=== PATIENT | male | born 1975 | race Caucasian/White ===

== ENCOUNTER 2016-09-23 14:05 | Inpatient (IN) | payer OTHER ==
[2016-09-23 15:39] VITALS: BMI 39.4
--- NOTE | 2016-09-23 16:31 | HP ---
CIWA Score - CIWA Score Nausea/Vomitin Muscle Tremors: 5 Anxiety: 4-Mod. Anxious/Guarded Agitation: 4-Moderately Restless Paroxysmal Sweats: 1-Minimal Palms Moist Orientation: 3-Disoriented Date>2 days Tacttile Disturbances: 0-None Auditory Disturbances: 0-None Visual Disturbances: 0-None Headache: 1-Very Mild CIWA-Ar Total Score: 20 Admission ROS BHS - HPI Chief Complaint: withdrawal sx Allergies/Adverse Reactions: Allergies Allergy/AdvReac Type Severity Reaction Status Date / Time No Known Allergies Allergy Verified 09/23/16 16:15 History of Present Illness: 41 years old male with long history of alcohol dependence, has gerd and bipolar , longest sobriety 2 years is admitted to detox Exam Limitations: No Limitations - Ebola screening Have you traveled outside of the country in the last 21 days: No Have you had contact with anyone from an Ebola affected area: No Have you been sick,other than usual withdrawal symptoms: No Do you have a fever: No - Review of Systems Constitutional: Chills, Changes in sleep, Weight Stable EENT: reports: Dental Problems (upper denture missing) Respiratory: reports: No Symptoms reported Cardiac: reports: No Symptoms Reported GI: reports: Diarrhea, Nausea, Poor Fluid Intake, Vomiting, Indigestion, Abdominal cramping : reports: No Symptoms Reported Musculoskeletal: reports: No Symptoms Reported Integumentary: reports: No Symptoms Reported Neuro: reports: Tremors Endocrine: reports: No Symptoms Reported Hematology: reports: No Symptoms Reported Psychiatric: reports: Judgement Intact, Anxious, Depressed Other Systems: Reviewed and Negative Patient History - Patient Medical History Hx Anemia: No Hx Asthma: No Hx Chronic Obstructive Pulmonary Disease (COPD): No Hx Cancer: No Hx Cardiac Disorders: No Hx Congestive Heart Failure: No Hx Hypertension: No Hx Hypercholesterolemia: No Hx Pacemaker: No HX Cerebrovascular Accident: No Hx Seizures: No Hx Dementia: No Hx Diabetes: No Hx Gastrointestinal Disorders: Yes Hx Liver Disease: No Hx Genitourinary Disorders: No Hx Sexually Transmitted Disorders: No Hx Renal Disease (ESRD): No Hx Thyroid Disease: No Hx Human Immunodeficiency Virus (HIV): No Hx Hepatitis C: No Hx Depression: No Hx Suicide Attempt: Yes (PILL O.D LAST ATTEMPTED 5 YRS AGO.PRESENTLY DENIES SI/ HI) Hx Bipolar Disorder: Yes Hx Schizophrenia: No - Patient Surgical History Past Surgical History: Yes Hx Neurologic Surgery: No Hx Cataract Extraction: No Hx Cardiac Surgery: No Hx Lung Surgery: No Hx Breast Surgery: No Hx Breast Biopsy: No Hx Abdominal Surgery: No Hx Appendectomy: No Hx Cholecystectomy: No Hx Genitourinary Surgery: No Hx Section: No Hx Orthopedic Surgery: Yes (R mandible fx) Other Surgical History: for fx of right mandible in 2000 Anesthesia Reaction: No - PPD History Previous Implant?: Yes Documented Results: Negative w/o proof Implanted On Prior [facility] Admission?: Yes Date: 09/09/15 Results: 0 mm PPD to be Administered?: Yes - Smoking Cessation Smoking history: Never smoked Have you smoked in the past 12 months: No Aproximately how many cigarettes per day: 0 Cigars Per Day: 0 Hx Chewing Tobacco Use: No Initiated information on smoking cessation: No 'Breaking Loose' booklet given: 09/23/16 - Substance & Tx. History Hx Alcohol Use: Yes Hx Substance Use: No Substance Use Type: Alcohol, Marijuana Hx Substance Use Treatment: No - Substances Abused Alcohol Route: Oral Frequency: Daily Amount used: 2 pints vodka/12pk beer Age of first use: 10 Date of Last Use: 09/23/16 Marijuana/Hashish Route: Smoking Frequency: 1-2 times per week Amount used: 1 blunt Age of first use: 14 Date of Last Use: 09/22/16 Family Disease History - Family Disease History Family Disease History: Other: Mother (depression ) Admission Physical Exam BHS - Vital Signs Vital Signs: Vital Signs - 24 hr 09/23/16 15:37 Temperature 95.9 F L Pulse Rate 82 Respiratory 20 Rate Blood Pressure 125/69 - Physical General Appearance: Yes: Nourished, Appropriately Dressed, Moderate Distress, Alcohol on Breath, Tremorous, Irritable, Sweating, Anxious HEENTM: Yes: Hearing grossly Normal, Normal ENT Inspection, Normocephalic, Normal Voice Respiratory: Yes: Chest Non-Tender, Lungs Clear, Normal Breath Sounds, No Respiratory Distress, No Accessory Muscle Use Neck: Yes: Supple, Trachea in good position Breast: Yes: Breasts Symetrical Cardiology: Yes: Tachycardia Abdominal: Yes: Non Tender, Soft Genitourinary: Yes: Within Normal Limits Back: Yes: Normal Inspection Musculoskeletal: Yes: full range of Motion, Gait Steady Extremities: Yes: Normal Range of Motion, Non-Tender, Tremors Neurological: Yes: Alert, Motor Strength 5/5, Normal Response, Depressed Affect Integumentary: Yes: Warm, Moist Lymphatic: Yes: Within Normal Limits - Diagnostic (1) Alcohol dependence with uncomplicated withdrawal Current Visit: Yes Status: Acute (2) GERD (gastroesophageal reflux disease) Current Visit: Yes Status: Acute Qualifiers: Esophagitis presence: without esophagitis Qualified Code(s): K21.9 - Gastro-esophageal reflux disease without esophagitis (3) Bipolar I, most recent episode depressed, severe with psychotic behavior Current Visit: Yes Status: Suspected Cleared for Admission [facility] - Detox or Rehab [facility] Level of Care: Medically Managed Detox Regimen/Protocol: Librium [facility] Breath Alcohol Content Breath Alcohol Content: 0.231 Urine Drug Screen - Results Drug Screen Negative: No Urine Drug Screen Results: THC-Marijuana
[2016-09-23] MEDS ORDERED: LOPERAMIDE HCL 2 MG CAPSULE PO PRN (16:32)
[2016-09-23] MEDS ORDERED: hydrOXYzine PAMOATE 50 MG CAPSULE (FP) PO PRN (16:32)
[2016-09-23] MEDS ORDERED: ACETAMINOPHEN 325 MG TABLET (FP) PO PRN (16:32)
[2016-09-23] MEDS ORDERED: MAGNESIUM HYDROX 2400MG/30ML ORAL SUSPENSION 30 ML CUP PO PRN (16:32)
[2016-09-23] MEDS ORDERED: P-EPHED 60MG/TRIPROLIDI 2.5MG TABLET PO PRN (16:32)
[2016-09-23] MEDS ORDERED: chlordiazePOXIDE HCL 25 MG CAPSULE PO PRN (16:32)
[2016-09-23] MEDS ORDERED: guaiFENesin/D-METHORPHAN HB 10 ML UNIT-DOSE CUPS PO PRN (16:32)
[2016-09-23] MEDS ORDERED: MAG HYDROX/AL HYDROX/SIMETH 30 ML UNIT-DOSE CUP PO PRN (16:32)
[2016-09-23] MEDS ORDERED: MAGNESIUM CITRATE 300 ML BOTTLE PO PRN (16:32)
[2016-09-23] MEDS ORDERED: IBUPROFEN 400 MG TABLET (FP) PO PRN (16:32)
[2016-09-23] MEDS ORDERED: MENTHOL/PHENOL 1 EACH UD MM PRN (16:32)
[2016-09-23] MEDS ORDERED: ONDANSETRON *ODT* 4 MG TABLET SL PRN (16:35)
[2016-09-23] MEDS ORDERED: chlordiazePOXIDE HCL 25 MG CAPSULE PO ONE (17:45)
--- NOTE | 2016-09-23 17:57 | CONSULT ---
[facility] Psychiatric Consult - Data Date of interview: 09/23/16 Admission source: [facility] Identifying data: Readmission to [facility] for this 41 y/o male seeking detox treatment on for alcohol and marijuana dependence.Patient is single,a father of three,domiciled (lives with relatives),unemployed and dependent on his relatives for financial support. Substance Abuse History: - Smoking Cessation. Smoking history: Never smoked. Have you smoked in the past 12 months: No. Aproximately how many cigarettes per day: 0. Cigars Per Day: 0. Hx Chewing Tobacco Use: No. Initiated information on smoking cessation: No. 'Breaking Loose' booklet given: . - Substance & Tx. History. Hx Alcohol Use: Yes. Hx Substance Use: No. Substance Use Type: Alcohol, Marijuana. Hx Substance Use Treatment: No. - Substances Abused. Alcohol. Route: Oral. Frequency: Daily. Amount used: 2 pints vodka/12pk beer. Age of first use: 10. Date of Last Use: 09/23/16. * * Marijuana/Hashish. Route: Smoking. Frequency: 1-2 times per week. Amount used: 1 blunt. Age of first use: 14. Date of Last Use: 09/22/16. Discussed with the patient in this interview.He aknowledges this pattern of substance abuse. Medical History: Remarkable for a history of GERD,withdrawal-related seizures and orthosurgery for fracture of right mandible (1998).Noted obesity. Psychiatric History: First contact with Psychiatry (outpatient psychiatric care at [facility]) :1994.Patient was reportedly diagnosed with MDD, PTSD,Anxiety Disorder and Bipolar Disorder.First regimen of medications consisted of lexapro,seroquel,trazodone and zolpidem.Mr Vieira admits to multiple psychiatric hospitalizations since 1998,mostly at [facility] and he is also known to [facility] in [place].Patient gets his psychiatric outpatient services at the [facility].Maintenance medications :seroquel 200 mg po bid + trazodone 100 mg po hs + zolpidem 10 mg po hs.Last took these medications two days ago.Patient reports a history of suicide attempt via overdose with medications (2014) but it appears that many rehospitalizations were warranted due to suicidal ideations (thoughts of jumping from high places) often in a context of substance intoxication.Mr Vieira insists that he is adherent to his current OPD care and he wants his medications to be included in this careplan. Physical/Sexual Abuse/Trauma History: No reported history of sexual abuse. Additional Comment: Urine Drug Screen Results: THC-Marijuana.Noted. Mental Status Exam - Mental Status Exam Alert and Oriented to: Time, Place, Person Cognitive Function: Good Patient Appearance: Well Groomed (obese) Mood: Nervous, Anxious, Apprehensive Affect: Mood Congruent Patient Behavior: Fatigued, Talkative, Appropriate, Cooperative Speech Pattern: Clear Voice Loudness: Normal Thought Process: Goal Oriented Thought Disorder: Not Present Hallucinations: Denies Suicidal Ideation: Denies Homicidal Ideation: Denies Insight/Judgement: Poor Sleep: Poorly, Difficulty falling asleep Appetite: Good Muscle strength/Tone: Normal Gait/Station: Normal Psychiatric Findings - Problem List (Blue 1, 2,3) (1) Alcohol dependence with uncomplicated withdrawal Current Visit: Yes Status: Acute (2) Nicotine dependence Current Visit: Yes Status: Chronic Qualifiers: Nicotine product type: cigarettes (3) Marijuana dependence Current Visit: Yes Status: Acute (4) Drug-induced mood disorder Current Visit: Yes Status: Acute (5) Bipolar disorder Current Visit: No Status: Chronic Comment: No symptom elicited.Historical diagnosis. (6) GERD (gastroesophageal reflux disease) Current Visit: Yes Status: Acute Qualifiers: Esophagitis presence: without esophagitis Qualified Code(s): K21.9 - Gastro-esophageal reflux disease without esophagitis (7) Obesity Current Visit: Yes Status: Chronic Qualifiers: Obesity type: due to excess calories Obesity severity: morbid Qualified Code(s): E66.01 - Morbid (severe) obesity due to excess calories (8) Insomnia Current Visit: Yes Status: Acute - Initial Treatment Plan Initial Treatment Plan: Psychoeducation.Detoxification in progress.Medications : seroquel 200 mg po hs + trazodone 100 mg po hs (reduced).Zolpidem is held until further orders.Side effects/benefits of each drug discussed with the patient.Risk of parasomnia (zolpidem) revisited.Patient states that he understands information and he,verbally,consents to follow this plan of care.Observation.Mr Vieira is 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
[2016-09-23] MEDS ORDERED: diphenhydrAMINE HCL 50 MG CAPSULE PO PRN (22:00)
[2016-09-23] MEDS: chlordiazePOXIDE HCL 25 MG CAPSULE PO SCH (22:19)
[2016-09-23] MEDS: RANITIDINE HCL 150 MG TABLET (FP) PO SCH (22:19)
[2016-09-23] MEDS: QUEtiapine FUMARATE 200 MG TABLET PO SCH (22:19)
[2016-09-23] MEDS: traZODone HCL 100 MG TABLET (FP) PO SCH (22:19)
[2016-09-23] MEDS: THIAMINE HCL 100 MG TABLET (FP) PO SCH (22:20)
[2016-09-23 23:57] LABS: URINE APPEARANCE CLEAR; URINE BILIRUBIN NEGATIVE (NEGATIVE); URINE COLOR COLORLESS; URINE GLUCOSE (UA) NEGATIVE (NEGATIVE); URINE KETONE NEGATIVE (NEGATIVE); URINE LEUK ESTERASE NEGATIVE (NEGATIVE); URINE NITRITE NEGATIVE (NEGATIVE); URINE PROTEIN NEGATIVE (NEGATIVE); URINE UROBILINOGEN NEGATIVE E.U./dl (0.2-1.0)
[2016-09-23 23:58] LABS: URINE BLOOD 1+ (NEGATIVE)
[2016-09-24 00:49] LABS: URINE RBC <1 /hpf (0-3)
[2016-09-24] MEDS: chlordiazePOXIDE HCL 25 MG CAPSULE PO SCH ×4 (06:08→22:24)
[2016-09-24 09:50] LABS: MCH 31.1 pg (25.7-33.7); MEAN CELL VOLUME 91.4 fl (80-96); MEAN PLT VOLUME 9.6 fl (7.5-11.1); PLATELET COUNT 214 K/MM3 (134-434); RDW 14.6 % (11.9-15.9); WHITE BLOOD COUNT 7.1 K/mm3 (4.0-10.0)
[2016-09-24] MEDS: PRENATAL VITAMINS W/ FOLIC ACID TABLET (FP) PO SCH (10:22)
[2016-09-24] MEDS: RANITIDINE HCL 150 MG TABLET (FP) PO SCH ×2 (10:22→22:24)
[2016-09-24 10:31] LABS: ALBUMIN 4.1 g/dl (3.4-5.0); ALK PHOS 137 U/L (45-117); ANION GAP 14 (8-16); BILIRUBIN,TOTAL 0.3 mg/dL (0.2-1.0); CO2 21 mmol/L (21-32); CREATININE 0.8 mg/dL (0.7-1.3); GLUCOSE,RANDOM 131 mg/dL (74-106); SGOT/AST 26 U/L (15-37); SGPT/ALT 47 U/L (12-78); TOT PROT 7.7 g/dl (6.4-8.2)
--- NOTE | 2016-09-24 11:13 | PN ---
[facility] CIWA - CIWA Score Nausea/Vomitin-No Nausea/No Vomiting Muscle Tremors: 5 Anxiety: 5 Agitation: 4-Moderately Restless Paroxysmal Sweats: 1-Minimal Palms Moist Orientation: 0-Oriented Tacttile Disturbances: 3-Moderate Itch/Numb/Burn Auditory Disturbances: 0-None Visual Disturbances: 0-None Headache: 0-None Present CIWA-Ar Total Score: 18 S Progress Note (SOAP) Subjective: ANXIETY,TREMORS,SWEATS,INTERMITTENT SLEEP Objective: 09/24/16 11:12 Vital Signs Temperature 97 F L 09/24/16 06:23 Pulse Rate 81 09/24/16 06:23 Respiratory Rate 18 09/24/16 06:23 Blood Pressure 120/84 09/24/16 06:23 O2 Sat by Pulse Oximetry (%) Laboratory Last Values WBC 7.1 K/mm3 (4.0-10.0) 09/24/16 06:00 RBC 5.09 M/mm3 (4.00-5.60) 09/24/16 06:00 Hgb 15.8 GM/dL (11.7-16.9) 09/24/16 06:00 Hct 46.5 % (35.4-49) 09/24/16 06:00 MCV 91.4 fl (80-96) 09/24/16 06:00 MCHC 34.0 g/dl (32.0-35.9) 09/24/16 06:00 RDW 14.6 % (11.9-15.9) 09/24/16 06:00 Plt Count 214 K/MM3 (134-434) D 09/24/16 06:00 MPV 9.6 fl (7.5-11.1) 09/24/16 06:00 Sodium 139 mmol/L (136-145) 09/24/16 06:00 Potassium 3.6 mmol/L (3.5-5.1) 09/24/16 06:00 Chloride 104 mmol/L (98-107) 09/24/16 06:00 Carbon Dioxide 21 mmol/L (21-32) 09/24/16 06:00 Anion Gap 14 (8-16) 09/24/16 06:00 BUN 7 mg/dL (7-18) 09/24/16 06:00 Creatinine 0.8 mg/dL (0.7-1.3) 09/24/16 06:00 Creat Clearance w eGFR > 60 (>60) 09/24/16 06:00 Random Glucose 131 mg/dL (74-106) H D 09/24/16 06:00 Calcium 9.0 mg/dL (8.5-10.1) 09/24/16 06:00 Total Bilirubin 0.3 mg/dL (0.2-1.0) 09/24/16 06:00 AST 26 U/L (15-37) 09/24/16 06:00 ALT 47 U/L (12-78) 09/24/16 06:00 Alkaline Phosphatase 137 U/L (45-117) H 09/24/16 06:00 Total Protein 7.7 g/dl (6.4-8.2) 09/24/16 06:00 Albumin 4.1 g/dl (3.4-5.0) 09/24/16 06:00 Urine Color Colorless 09/23/16 22:00 Urine Appearance Clear 09/23/16 22:00 Urine pH 6.0 (5.0-8.0) 09/23/16 22:00 Ur Specific [place] 1.001 (1.001-1.035) 09/23/16 22:00 Urine Protein Negative (NEGATIVE) 09/23/16 22:00 Urine Glucose (UA) Negative (NEGATIVE) 09/23/16 22:00 Urine Ketones Negative (NEGATIVE) 09/23/16 22:00 Urine Blood 1+ (NEGATIVE) H 09/23/16 22:00 Urine Nitrite Negative (NEGATIVE) 09/23/16 22:00 Urine Bilirubin Negative (NEGATIVE) 09/23/16 22:00 Urine Urobilinogen Negative E.U./dl (0.2-1.0) 09/23/16 22:00 Ur Leukocyte Esterase Negative (NEGATIVE) 09/23/16 22:00 Urine RBC <1 /hpf (0-3) 09/23/16 22:00 Urine WBC None /hpf (3-5) 09/23/16 22:00 LABS NOTED Assessment: 09/24/16 11:12 WITHDRAWAL SX Plan: CONTINUE DETOX
[2016-09-24] MEDS: THIAMINE HCL 100 MG TABLET (FP) PO SCH (22:23)
[2016-09-24] MEDS: ZOLPIDEM TARTRATE 10 MG TABLET (PARK CARE ONLY) PO PRN (22:24)
[2016-09-24] MEDS: QUEtiapine FUMARATE 200 MG TABLET PO SCH (22:24)
[2016-09-24] MEDS: traZODone HCL 100 MG TABLET (FP) PO SCH (22:24)
--- NOTE | 2016-09-24 23:36 | EKG ---
Test Reason : Blood Pressure : / mmHG Vent. Rate : 079 BPM Atrial Rate : 079 BPM P-R Int : 162 ms QRS Dur : 082 ms QT Int : 370 ms P-R-T Axes : 033 016 037 degrees QTc Int : 424 ms NORMAL SINUS RHYTHM NORMAL ECG WHEN COMPARED WITH ECG OF 05-JUN-2016 14:34, NO SIGNIFICANT CHANGE WAS FOUND Confirmed by JOSUE TORO MD ([id number]) on 09/24/2016 11:35:51 PM Referred By: Confirmed By:JOSUE TORO MD
[2016-09-25] MEDS: chlordiazePOXIDE HCL 25 MG CAPSULE PO SCH ×3 (06:06→17:26)
--- NOTE | 2016-09-25 10:02 | PN ---
[facility] CIWA - CIWA Score Nausea/Vomitin-No Nausea/No Vomiting Muscle Tremors: 4-Moderate,w/Arms Extend Anxiety: 4-Mod. Anxious/Guarded Agitation: 4-Moderately Restless Paroxysmal Sweats: 1-Minimal Palms Moist Orientation: 0-Oriented Tacttile Disturbances: 3-Moderate Itch/Numb/Burn Auditory Disturbances: 0-None Visual Disturbances: 0-None Headache: 0-None Present CIWA-Ar Total Score: 16 BHS Progress Note (SOAP) Subjective: ANXIETY,SLIGHT TREMORS,SWEATS,FATIGUE. Objective: 09/25/16 10:01 Vital Signs Temperature 96.1 F L 09/25/16 09:34 Pulse Rate 90 09/25/16 09:34 Respiratory Rate 20 09/25/16 09:34 Blood Pressure 122/79 09/25/16 09:34 O2 Sat by Pulse Oximetry (%) Laboratory Last Values WBC 7.1 K/mm3 (4.0-10.0) 09/24/16 06:00 RBC 5.09 M/mm3 (4.00-5.60) 09/24/16 06:00 Hgb 15.8 GM/dL (11.7-16.9) 09/24/16 06:00 Hct 46.5 % (35.4-49) 09/24/16 06:00 MCV 91.4 fl (80-96) 09/24/16 06:00 MCHC 34.0 g/dl (32.0-35.9) 09/24/16 06:00 RDW 14.6 % (11.9-15.9) 09/24/16 06:00 Plt Count 214 K/MM3 (134-434) D 09/24/16 06:00 MPV 9.6 fl (7.5-11.1) 09/24/16 06:00 Sodium 139 mmol/L (136-145) 09/24/16 06:00 Potassium 3.6 mmol/L (3.5-5.1) 09/24/16 06:00 Chloride 104 mmol/L (98-107) 09/24/16 06:00 Carbon Dioxide 21 mmol/L (21-32) 09/24/16 06:00 Anion Gap 14 (8-16) 09/24/16 06:00 BUN 7 mg/dL (7-18) 09/24/16 06:00 Creatinine 0.8 mg/dL (0.7-1.3) 09/24/16 06:00 Creat Clearance w eGFR > 60 (>60) 09/24/16 06:00 Random Glucose 131 mg/dL (74-106) H D 09/24/16 06:00 Calcium 9.0 mg/dL (8.5-10.1) 09/24/16 06:00 Total Bilirubin 0.3 mg/dL (0.2-1.0) 09/24/16 06:00 AST 26 U/L (15-37) 09/24/16 06:00 ALT 47 U/L (12-78) 09/24/16 06:00 Alkaline Phosphatase 137 U/L (45-117) H 09/24/16 06:00 Total Protein 7.7 g/dl (6.4-8.2) 09/24/16 06:00 Albumin 4.1 g/dl (3.4-5.0) 09/24/16 06:00 Urine Color Colorless 09/23/16 22:00 Urine Appearance Clear 09/23/16 22:00 Urine pH 6.0 (5.0-8.0) 09/23/16 22:00 Ur Specific [place] 1.001 (1.001-1.035) 09/23/16 22:00 Urine Protein Negative (NEGATIVE) 09/23/16 22:00 Urine Glucose (UA) Negative (NEGATIVE) 09/23/16 22:00 Urine Ketones Negative (NEGATIVE) 09/23/16 22:00 Urine Blood 1+ (NEGATIVE) H 09/23/16 22:00 Urine Nitrite Negative (NEGATIVE) 09/23/16 22:00 Urine Bilirubin Negative (NEGATIVE) 09/23/16 22:00 Urine Urobilinogen Negative E.U./dl (0.2-1.0) 09/23/16 22:00 Ur Leukocyte Esterase Negative (NEGATIVE) 09/23/16 22:00 Urine RBC <1 /hpf (0-3) 09/23/16 22:00 Urine WBC None /hpf (3-5) 09/23/16 22:00 RPR Titer Nonreactive (NONREACTIVE) 09/24/16 06:00 Assessment: 09/25/16 10:02 WITHDRAWAL SX Plan: CONTINUE DETOX
[2016-09-25] MEDS: RANITIDINE HCL 150 MG TABLET (FP) PO SCH ×2 (10:08→22:22)
[2016-09-25] MEDS: PRENATAL VITAMINS W/ FOLIC ACID TABLET (FP) PO SCH (10:08)
[2016-09-25] MEDS: QUEtiapine FUMARATE 200 MG TABLET PO SCH (22:21)
[2016-09-25] MEDS: ZOLPIDEM TARTRATE 10 MG TABLET (PARK CARE ONLY) PO PRN (22:21)
[2016-09-25] MEDS: THIAMINE HCL 100 MG TABLET (FP) PO SCH (22:21)
[2016-09-25] MEDS: chlordiazePOXIDE 5 MG CAPSULE PO SCH (22:21)
[2016-09-25] MEDS: traZODone HCL 100 MG TABLET (FP) PO SCH (22:22)
[2016-09-26] MEDS: chlordiazePOXIDE 5 MG CAPSULE PO SCH ×3 (06:01→17:57)
--- NOTE | 2016-09-26 09:49 | PN ---
BHS Progress Note (SOAP) Subjective: ANXIETY,SWEATS,BODYACHES. Objective: 09/26/16 09:48 Vital Signs Temperature 98.0 F 09/26/16 09:22 Pulse Rate 95 H 09/26/16 09:22 Respiratory Rate 20 09/26/16 09:22 Blood Pressure 132/83 09/26/16 09:22 O2 Sat by Pulse Oximetry (%) Assessment: 09/26/16 09:48 WITHDRAWAL SX Plan: CONTINUE DETOX
[2016-09-26] MEDS: RANITIDINE HCL 150 MG TABLET (FP) PO SCH ×2 (10:03→22:13)
[2016-09-26] MEDS: PRENATAL VITAMINS W/ FOLIC ACID TABLET (FP) PO SCH (10:03)
[2016-09-26] MEDS: QUEtiapine FUMARATE 200 MG TABLET PO SCH (22:13)
[2016-09-26] MEDS: traZODone HCL 100 MG TABLET (FP) PO SCH (22:13)
[2016-09-26] MEDS: ZOLPIDEM TARTRATE 10 MG TABLET (PARK CARE ONLY) PO PRN (22:13)
[2016-09-26] MEDS: THIAMINE HCL 100 MG TABLET (FP) PO SCH (22:13)
[2016-09-26] MEDS: chlordiazePOXIDE HCL 10 MG CAPSULE PO SCH (22:13)
[2016-09-27 06:22] VITALS: BP 144/84; PULSE 85; TEMP 97
[2016-09-27] MEDS: chlordiazePOXIDE HCL 10 MG CAPSULE PO SCH (06:36)
--- NOTE | 2016-10-05 20:03 | DS ---
[facility] Detox Discharge Summary Admission Date: 09/23/16 Discharge Date: 09/27/16 - History Present History: Alcohol Dependence Pertinent Past History: GERD Obesity PTSD - Physical Exam Results Vital Signs: Vital Signs Temperature 97 F L 09/27/16 06:21 Pulse Rate 85 09/27/16 06:21 Respiratory Rate 18 09/27/16 06:21 Blood Pressure 144/84 09/27/16 06:21 O2 Sat by Pulse Oximetry (%) Pertinent Admission Physical Exam Findings: withdrawal sx. Laboratory Last Values WBC 7.1 K/mm3 (4.0-10.0) 09/24/16 06:00 RBC 5.09 M/mm3 (4.00-5.60) 09/24/16 06:00 Hgb 15.8 GM/dL (11.7-16.9) 09/24/16 06:00 Hct 46.5 % (35.4-49) 09/24/16 06:00 MCV 91.4 fl (80-96) 09/24/16 06:00 MCHC 34.0 g/dl (32.0-35.9) 09/24/16 06:00 RDW 14.6 % (11.9-15.9) 09/24/16 06:00 Plt Count 214 K/MM3 (134-434) D 09/24/16 06:00 MPV 9.6 fl (7.5-11.1) 09/24/16 06:00 Sodium 139 mmol/L (136-145) 09/24/16 06:00 Potassium 3.6 mmol/L (3.5-5.1) 09/24/16 06:00 Chloride 104 mmol/L (98-107) 09/24/16 06:00 Carbon Dioxide 21 mmol/L (21-32) 09/24/16 06:00 Anion Gap 14 (8-16) 09/24/16 06:00 BUN 7 mg/dL (7-18) 09/24/16 06:00 Creatinine 0.8 mg/dL (0.7-1.3) 09/24/16 06:00 Creat Clearance w eGFR > 60 (>60) 09/24/16 06:00 Random Glucose 131 mg/dL (74-106) H D 09/24/16 06:00 Calcium 9.0 mg/dL (8.5-10.1) 09/24/16 06:00 Total Bilirubin 0.3 mg/dL (0.2-1.0) 09/24/16 06:00 AST 26 U/L (15-37) 09/24/16 06:00 ALT 47 U/L (12-78) 09/24/16 06:00 Alkaline Phosphatase 137 U/L (45-117) H 09/24/16 06:00 Total Protein 7.7 g/dl (6.4-8.2) 09/24/16 06:00 Albumin 4.1 g/dl (3.4-5.0) 09/24/16 06:00 Urine Color Colorless 09/23/16 22:00 Urine Appearance Clear 09/23/16 22:00 Urine pH 6.0 (5.0-8.0) 09/23/16 22:00 Ur Specific [place] 1.001 (1.001-1.035) 09/23/16 22:00 Urine Protein Negative (NEGATIVE) 09/23/16 22:00 Urine Glucose (UA) Negative (NEGATIVE) 09/23/16 22:00 Urine Ketones Negative (NEGATIVE) 09/23/16 22:00 Urine Blood 1+ (NEGATIVE) H 09/23/16 22:00 Urine Nitrite Negative (NEGATIVE) 09/23/16 22:00 Urine Bilirubin Negative (NEGATIVE) 09/23/16 22:00 Urine Urobilinogen Negative E.U./dl (0.2-1.0) 09/23/16 22:00 Ur Leukocyte Esterase Negative (NEGATIVE) 09/23/16 22:00 Urine RBC <1 /hpf (0-3) 09/23/16 22:00 Urine WBC None /hpf (3-5) 09/23/16 22:00 RPR Titer Nonreactive (NONREACTIVE) 09/24/16 06:00 labs noted - Treatment Hospital Course: Detox Protocol Followed, Detoxed Safely, Responded well, Discharged Condition Good, Rehab Referral Accepted - Medication Discharge Medications: Ambulatory Orders Trazodone HCl [Desyrel -] 200 mg PO HS #60 tablet 09/08/15 Zolpidem Tartrate [Ambien] 10 mg PO HS #30 tablet 09/08/15 Quetiapine Fumarate [Seroquel -] 200 mg PO BID #60 tab 06/06/16 Quetiapine Fumarate [Seroquel -] 200 mg PO BID #60 tab 09/25/16 Trazodone HCl 100 mg PO HS #30 tablet 09/25/16 - Diagnosis (1) Alcohol dependence with uncomplicated withdrawal Status: Acute (2) Drug-induced mood disorder Status: Acute (3) GERD (gastroesophageal reflux disease) Status: Acute Qualifiers: Esophagitis presence: without esophagitis Qualified Code(s): K21.9 - Gastro-esophageal reflux disease without esophagitis (4) Bipolar disorder Status: Chronic - AMA Did Patient Leave Against Medical Advice: No
== END 2016-09-27 07:00 | disposition home or self-care (01) | DRG 775 ==
LOC: YASAS 14:05 → Y3N 16:52
PROVIDERS: ADMIT Internal Medicine; ATTEND Internal Medicine
PROC: HZ2ZZZZ Detoxification Services for Substance Abuse Treatment (ICD-10-PCS; principal; 2016-09-27)
DX: F10.230 Alcohol dependence with withdrawal, uncomplicated (principal); F12.20 Cannabis dependence, uncomplicated; F17.210 Nicotine dependence, cigarettes, uncomplicated; F19.24 Other psychoactive substance dependence with psychoactive substance-induced mood disorder; F31.89 Other bipolar disorder; G47.00 Insomnia, unspecified; K21.9 Gastro-esophageal reflux disease without esophagitis; E66.01 Morbid (severe) obesity due to excess calories; Z68.39 Body mass index [BMI] 39.0-39.9, adult
CPT/HCPCS: 36415; 80053; 81003; 81015; 85027; 86593; 93005; 93010

== ENCOUNTER 2020-03-10 18:15 | Inpatient (IN) | payer OTHER ==
--- NOTE | 2020-03-10 18:49 | HP ---
CIWA Score Nausea/Vomitin Muscle Tremors: 4-Moderate,w/Arms Extend Anxiety: 4-Mod. Anxious/Guarded Agitation: 3 Paroxysmal Sweats: 2 Orientation: 1-Uncertain about Date Tacttile Disturbances: 0-None Auditory Disturbances: 0-None Visual Disturbances: 0-None Headache: 3-Moderate CIWA-Ar Total Score: 20 - Admission Criteria [facility]ASAS Guidelines: Admission for Medically Managed Detox: Requires at least one of the followin. CIWA greater than 12 2. Seizures within the past 24 hours 3. Delirium tremens within the past 24 hours 4. Hallucinations within the past 24 hours 5. Acute intervention needed for co occurring medical disorder 6. Acute intervention needed for co occurring psychiatric disorder 7. Severe withdrawal that cannot be handled at a lower level of care (continued vomiting, continued diarrhea, abnormal vital signs) requiring intravenous medication and/or fluids 8. Admitting History and Physical - Smoking History Smoking history: Never smoked Have you smoked in the past 12 months: No Aproximately how many cigarettes per day: 0 - Alcohol/Substance Use Hx Alcohol Use: Yes Admission ROS [facility] Chief Complaint: Seeking admission to detox from alcohol Allergies/Adverse Reactions: Allergies Allergy/AdvReac Type Severity Reaction Status Date / Time No Known Allergies Allergy Verified 12/01/17 17:48 History of Present Illness: 44 years old male with a long history of alcohol dependence is seeking admission to detox. His last admission was for the period 09/23/2016- 09/27/2016 and he relapsed recently. He reports that he drinks 3 pints of Vodka and 12 bottles of beer daily with last use today. He medical history of GERD, seizures and reports psych. history of anxiety, bipolar disorder, PTSD and schizophrenia. He reports 5 suicidal attempts and denies suicidal ideation at this time. 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 He is unemployed, lives with his sister and denies pending legal issues. Exam Limitations: No Limitations - Ebola screening Have you traveled outside of the country in the last 21 days: No Have you had contact with anyone from an Ebola affected area: No Have you been sick,other than usual withdrawal symptoms: No Do you have a fever: No - Review of Systems Constitutional: Chills, Loss of Appetite, Malaise, Night Sweats EENT: reports: No Symptoms Reported Respiratory: reports: No Symptoms reported Cardiac: reports: No Symptoms Reported GI: reports: Diarrhea, Poor Appetite, Poor Fluid Intake, Vomiting, Abdominal cramping : reports: No Symptoms Reported Musculoskeletal: reports: Back Pain Integumentary: reports: Dryness, Flushing Hematology: reports: No Symptoms Reported Psychiatric: reports: Mood/Affect Appropiate, Anxious, Depressed Other Systems: Reviewed and Negative Patient History - Patient Medical History Hx Anemia: No Hx Asthma: No Hx Chronic Obstructive Pulmonary Disease (COPD): No Hx Cancer: No Hx Cardiac Disorders: No Hx Congestive Heart Failure: No Hx Hypertension: No Hx Hypercholesterolemia: No Hx Pacemaker: No HX Cerebrovascular Accident: No Hx Seizures: No Hx Dementia: No Hx Diabetes: No Hx Gastrointestinal Disorders: Yes (GERD) Hx Liver Disease: No Hx Genitourinary Disorders: No Hx Sexually Transmitted Disorders: No Hx Renal Disease (ESRD): No Hx Thyroid Disease: No Hx Human Immunodeficiency Virus (HIV): No Hx Hepatitis C: No Hx Depression: No (+ Anxiety) Hx Suicide Attempt: Yes (PILL O.D LAST ATTEMPTED 5 YRS AGO.PRESENTLY DENIES SI/HI) Hx Bipolar Disorder: Yes (+ PTSD) Hx Schizophrenia: Yes - Patient Surgical History Past Surgical History: Yes Hx Neurologic Surgery: No Hx Cataract Extraction: No Hx Cardiac Surgery: No Hx Lung Surgery: No Hx Breast Surgery: No Hx Breast Biopsy: No Hx Abdominal Surgery: No Hx Appendectomy: No Hx Cholecystectomy: No Hx Genitourinary Surgery: No Hx Section: No Hx Orthopedic Surgery: Yes (R mandible fx) Other Surgical History: for fx of right mandible in 2000 Anesthesia Reaction: No - PPD History Previous Implant?: Yes Documented Results: Negative w/proof Implanted On Prior [facility] Admission?: Yes Date: 09/25/16 Results: 0 mm PPD to be Administered?: Yes - Reproductive History Patient is a Female of Child Bearing Age (11 -55 yrs old): No (Male) - Smoking Cessation Smoking history: Current some day smoker Have you smoked in the past 12 months: No Aproximately how many cigarettes per day: 3 Hx Chewing Tobacco Use: No Initiated information on smoking cessation: Yes 'Breaking Loose' booklet given: 03/10/20 - Substance & Tx. History Hx Alcohol Use: Yes Hx Substance Use: Yes Substance Use Type: Cocaine, Marijuana Hx Substance Use Treatment: Yes - Substances abused Alcohol Substance route: Oral Frequency: Daily Amount used: 3 Pints Vodka, 12 bottles beer Age of first use: 12 Date of last use: 03/10/20 Marijuana/Hashish Substance route: Smoking Frequency: Daily Amount used: 5 blounts Age of first use: 12 Date of last use: 03/10/20 Cocaine Substance route: Inhalation Frequency: 3-6 times per week Amount used: $50 worth Age of first use: 12 Date of last use: 03/09/20 Admission Physical Exam [facility] - Physical General Appearance: Yes: Severe Distress, Tremorous, Irritable, Sweating, Anxious HEENTM: Yes: Within Normal Limits Respiratory: Yes: Lungs Clear, Normal Breath Sounds, No Respiratory Distress Neck: Yes: Within Normal Limits Breast: Yes: Breast Exam Deferred Cardiology: Yes: Tachycardia Abdominal: Yes: Within Normal Limits Genitourinary: Yes: Within Normal Limits Back: Yes: Normal Inspection Musculoskeletal: Yes: Within Normal Limits Extremities: Yes: Tremors Neurological: Yes: Within Normal Limits Integumentary: Yes: Dry, Pale, Clammy - Diagnostic (1) Opioid dependence with withdrawal Current Visit: Yes Status: Acute (2) GERD (gastroesophageal reflux disease) Current Visit: Yes Status: Chronic Qualifiers: Esophagitis presence: without esophagitis Qualified Code(s): K21.9 - Gastro-esophageal reflux disease without esophagitis (3) Insomnia Current Visit: Yes Status: Chronic (4) Marijuana dependence Current Visit: Yes Status: Chronic (5) Alcohol related seizure Current Visit: Yes Status: Chronic (6) Anxiety disorder Current Visit: Yes Status: Chronic (7) Bipolar disorder Current Visit: Yes Status: Chronic Comment: No symptom elicited.Historical diagnosis. (8) Cocaine abuse Current Visit: Yes Status: Chronic (9) Nicotine dependence Current Visit: Yes Status: Chronic Qualifiers: Nicotine product type: cigarettes (10) PTSD (post-traumatic stress disorder) Current Visit: Yes Status: Chronic Cleared for Admission [facility] - Detox or Rehab [facility] Level of Care: Medically Managed Detox Regimen/Protocol: Librium Claeared for Rehab Admission: No Inpatient Rehab Admission - Rehab Decision to Admit Inpatient rehab admission?: No
[2020-03-10] MEDS ORDERED: MAGNESIUM HYDROX 2400MG/30ML ORAL SUSPENSION 30 ML CUP PO PRN (19:14)
[2020-03-10] MEDS ORDERED: IBUPROFEN 400 MG TABLET (FP) PO PRN (19:14)
[2020-03-10] MEDS ORDERED: MAG HYDROX/AL HYDROX/SIMETH 30 ML UNIT-DOSE CUP PO PRN (19:14)
[2020-03-10] MEDS ORDERED: BISMUTH SUBSALICYLATE 524 MG/30 ML UD PO PRN (19:14)
[2020-03-10] MEDS ORDERED: METHOCARBAMOL 500 MG TABLET PO PRN (19:14)
[2020-03-10] MEDS ORDERED: NICOTINE POLACRILEX 2 MG GUM BUC PRN (19:14)
[2020-03-10] MEDS ORDERED: chlordiazePOXIDE HCL 25 MG CAPSULE PO PRN (19:14)
[2020-03-10] MEDS ORDERED: MAGNESIUM CITRATE 300 ML BOTTLE PO PRN (19:14)
[2020-03-10] MEDS ORDERED: hydrOXYzine PAMOATE 25 MG CAPSULE (FP) PO PRN (19:14)
[2020-03-10] MEDS ORDERED: ACETAMINOPHEN 325 MG TABLET (FP) PO PRN ×2 (19:14)
[2020-03-10] MEDS ORDERED: MENTHOL/PHENOL 1 EACH UD MM PRN (19:14)
[2020-03-10] MEDS ORDERED: chlordiazePOXIDE HCL 25 MG CAPSULE ONE (19:25)
[2020-03-10] MEDS ORDERED: ONDANSETRON *ODT* 4 MG TABLET SL ONE (19:30)
[2020-03-10 19:48] VITALS: BMI 39.4
--- NOTE | 2020-03-10 21:55 | DS ---
[facility] Detox Discharge Summary Admission Date: 03/10/20 Discharge Date: 03/10/20 (Was on unit 2 hrs before leaving) - History Present History: Alcohol Dependence, Cannabis Dependence, Cocaine Dependence - Physical Exam Results Vital Signs: Vital Signs Temperature 97.5 F L 03/10/20 19:43 Pulse Rate 103 H 03/10/20 19:43 Respiratory Rate 03/10/20 19:43 Blood Pressure 146/100 03/10/20 19:43 O2 Sat by Pulse Oximetry (%) 100 03/10/20 19:56 Pertinent Admission Physical Exam Findings: Patient was having severe withdrawal symptoms and received a dose of librium for a CIWA of 20. Patient alert and oriented with steady gait. When asked why he wanted to leave, patient stated loudly "Because I have a right" Encouraged to get patient to stay, but declined. Patient left AMA. - Medication Discharge Medications: Ambulatory Orders Zolpidem Tartrate [Ambien] 10 mg PO HS #30 tablet 09/08/15 traZODone HCL [Desyrel -] 200 mg PO HS #60 tablet 09/08/15 Quetiapine Fumarate [Seroquel -] 200 mg PO BID #60 tab 06/06/16 - Diagnosis (1) Alcohol dependence with uncomplicated withdrawal Current Visit: Yes Status: Acute (2) Alcohol related seizure Current Visit: Yes Status: Resolved (3) GERD (gastroesophageal reflux disease) Current Visit: Yes Status: Chronic Qualifiers: Esophagitis presence: without esophagitis Qualified Code(s): K21.9 - Gastro-esophageal reflux disease without esophagitis (4) Nicotine dependence Current Visit: Yes Status: Chronic Qualifiers: Nicotine product type: cigarettes Substance use status: uncomplicated Qualified Code(s): F17.210 - Nicotine dependence, cigarettes, uncomplicated - AMA Did Patient Leave Against Medical Advice: Yes (Alert and oriented. Steady gait.)
[2020-03-10] MEDS ORDERED: THIAMINE HCL 100 MG TABLET (FP) PO SCH (22:00)
[2020-03-10] MEDS ORDERED: MELATONIN 5 MG TABLETS PO SCH (22:00)
[2020-03-10 22:17] VITALS: BP 135/91; PULSE 92; TEMP 97.8
[2020-03-10] MEDS ORDERED: chlordiazePOXIDE HCL 25 MG CAPSULE PO SCH (23:00)
[2020-03-11] MEDS ORDERED: PRENATAL VITAMINS W/ FOLIC ACID TABLET (FP) PO SCH (10:00)
[2020-03-11] MEDS ORDERED: NICOTINE 7 MG/24 HOURS TOPICAL PATCH TD SCH (10:00)
[2020-03-11] MEDS ORDERED: PNEUMOC 13-VAL CONJ-DIP CRM/PF 0.5 ML DISP.SYRIN IM ONE (12:00)
--- NOTE | 2020-03-11 14:58 | EKG ---
Test Reason : Blood Pressure : / mmHG Vent. Rate : 087 BPM Atrial Rate : 087 BPM P-R Int : 146 ms QRS Dur : 076 ms QT Int : 352 ms P-R-T Axes : 031 017 046 degrees QTc Int : 423 ms POOR DATA QUALITY, INTERPRETATION MAY BE ADVERSELY AFFECTED NORMAL SINUS RHYTHM NORMAL ECG WHEN COMPARED WITH ECG OF 23-SEP-2016 17:52, NO SIGNIFICANT CHANGE WAS FOUND Confirmed by MARSHALL HART MD ([id number]) on 03/11/2020 2:57:37 PM Referred By: Confirmed By:MARSHALL HART MD
[2020-03-12] MEDS ORDERED: chlordiazePOXIDE HCL 25 MG CAPSULE PO SCH (05:00)
[2020-03-13] MEDS ORDERED: chlordiazePOXIDE HCL 10 MG CAPSULE PO PRN
[2020-03-13] MEDS ORDERED: chlordiazePOXIDE HCL 10 MG CAPSULE PO SCH (05:00)
[2020-03-14] MEDS ORDERED: chlordiazePOXIDE HCL 10 MG CAPSULE PO SCH (05:00)
[2020-03-15] MEDS ORDERED: chlordiazePOXIDE HCL 10 MG CAPSULE PO ONE (05:00)
== END 2020-03-10 22:17 | disposition left against medical advice (07) | DRG 770 ==
LOC: YASAS 18:15 → Y5N DETOX 19:15
PROVIDERS: ADMIT Allergy & Immunology; ATTEND Allergy & Immunology
PROC: HZ2ZZZZ Detoxification Services for Substance Abuse Treatment (ICD-10-PCS; principal; 2020-03-10)
DX: F10.230 Alcohol dependence with withdrawal, uncomplicated (principal); F14.20 Cocaine dependence, uncomplicated; F12.20 Cannabis dependence, uncomplicated; F17.210 Nicotine dependence, cigarettes, uncomplicated; F31.9 Bipolar disorder, unspecified; F41.9 Anxiety disorder, unspecified; F20.9 Schizophrenia, unspecified; F43.10 Post-traumatic stress disorder, unspecified; G47.00 Insomnia, unspecified; Z86.19 Personal history of other infectious and parasitic diseases
CPT/HCPCS: 93005; 93010; U0003

== ENCOUNTER 2020-03-11 08:06 | Observation (INO) | payer OTHER ==
--- NOTE | 2020-03-11 08:49 | PDOC ---
History of Present Illness - General Chief Complaint: Substance Abuse Stated Complaint: SUBSTANCE ABUSE Time Seen by Provider: 03/11/20 08:33 - History of Present Illness Initial Comments: Andrew Vieira is a 44 y/o male with PMH significant for ETOH use disorder, cocaine use disorder, anxiety, depression, presenting today with chest pain that started two days ago. Chest pain is stabbing in nature and radiates up his neck. Pain is reproducible on palpation. Non exertional. Non pleuritic. Pt reports drinking "a lot" of vodka and beer last night and this morning, and reports that he snorted $200 worth of cocaine yesterday. Increased ETOH use over the past year, and uses cocaine occasionally. He was seen at [facility] yesterday and left AMA but is still interested in detox. Reports mild headache. Mild shortness of breath. No abd pain. Reports several episodes of nausea and vomiting. No leg swelling. No back pain. No neck pain. No fever. Past History - Medical History Allergies/Adverse Reactions: Allergies Allergy/AdvReac Type Severity Reaction Status Date / Time pollen extracts AdvReac Verified 03/11/20 08:10 Home Medications: Ambulatory Orders Zolpidem Tartrate [Ambien] 10 mg PO HS #30 tablet 09/08/15 traZODone HCL [Desyrel -] 200 mg PO HS #60 tablet 09/08/15 Quetiapine Fumarate [Seroquel -] 200 mg PO BID #60 tab 06/06/16 Anemia: No Asthma: No Cancer: No Cardiac Disorders: No CVA: No COPD: No CHF: No Dementia: No Diabetes: No GI Disorders: Yes (GERD) Disorders: No HTN: No Hypercholesterolemia: No Kidney Stones: No Liver Disease: No Seizures: No Thyroid Disease: No - Surgical History Abdominal Surgery: No Appendectomy: No Cardiac Surgery: No Cholecystectomy: No Lung Surgery: No Neurologic Surgery: No Orthopedic Surgery: Yes (R mandible fx) - Reproductive History Testicular Surgery: No - Psycho-Social/Smoking History Smoking History: Current every day smoker Have you smoked in the past 12 months: No Number of Cigarettes Smoked Daily: 3 Cigars Per Day: 0 Information on smoking cessation initiated: Yes 'Breaking Loose' booklet given: 03/10/20 - Substance Abuse Hx (Audit-C & DAST Scrn) How often the patient has a drink containing alcohol: 2-3 times / week Number of drinks the patient has on a typical day: 7 to 9 How often the patient has six or more drinks on one occasion: Weekly Score: In Men: 4 or > Positive; In Women: 3 or > Positive: 9 Screen Result (Pos requires Nsg. Audit-10AR): Positive In the last yr the pt used illegal drug/Rx for NonMed reason: Yes Score: Yes response is considered Positive: 1 Screen Result (Positive result requires Nsg. DAST-10): Positive Review of Systems - Review of Systems Comments:: GENERAL/CONSTITUTIONAL: No fever or chills. No weakness._ HEAD, EYES, EARS, NOSE AND THROAT: No change in vision. No change in hearing. No sore throat._ CARDIOVASCULAR: Reports chest pain and shortness of breath. RESPIRATORY: Denies cough, hemoptysis_ GASTROINTESTINAL: Reports nausea and vomiting. No diarrhea or constipation._ GENITOURINARY: No dysuria, frequency, or change in urination._ MUSCULOSKELETAL: No joint or muscle swelling or pain. No neck or back pain._ SKIN: No rash_ NEUROLOGIC: No headache, vertigo, loss of consciousness, or change in s trength/sensation._ ENDOCRINE: No increased thirst. No abnormal weight change_ HEMATOLOGIC/LYMPHATIC: No anemia, easy bleeding, or history of blood clots._ ALLERGIC/IMMUNOLOGIC: No hives or skin allergy._ PSYCH: Reports anxiety. *Physical Exam - Vital Signs Last Vital Signs Temp Pulse Resp BP Pulse Ox 98.3 F 91 H 20 190/87 H 94 L 03/11/20 08:08 03/11/20 08:08 03/11/20 08:08 03/11/20 08:08 03/11/20 08:08 - Physical Exam GENERAL: Awake, alert, and oriented to person/place/time, in no acute distress_ HEAD: No signs of trauma, normocephalic, atraumatic _ EYES: PERRLA, EOMI, sclera anicteric, conjunctiva clear_ ENT: Hearing grossly normal, nares patent, oropharynx clear without exudates. No uvular deviation. Moist mucosa_ NECK: Normal ROM, supple, no lymphadenopathy, JVD, or masses_ LUNGS: No distress, speaks in full sentences, clear to auscultation bilaterally _ HEART: Regular rate and rhythm, normal S1 and S2, no murmurs appreciated, peripheral pulses normal and equal bilaterally._ CHEST: TTP left anterior chest wall with no obvious bruising or trauma or rash. ABDOMEN: Soft, nontender, normoactive bowel sounds. No guarding, no rebound. No masses_ EXTREMITIES: Normal inspection, Normal range of motion, no edema. No clubbing or cyanosis_ NEUROLOGICAL: Cranial nerves II through XII grossly intact. Normal speech, normal gait, no focal sensorimotor deficits. Tremors at rest bilateral lower extremities. BUE tremors on extension. No tongue fasciculations. SKIN: Warm, mildly diaphoretic, normal turgor, no rashes or lesions noted_ ED Treatment Course - LABORATORY CBC & Chemistry Diagram: 03/11/20 09:30 03/11/20 09:30 Medical Decision Making - Medical Decision Making 03/11/20 09:30 44M hx of AUD, ZEINAB, anxiety, depression, presenting today with chest pain. Cocaine use yesterday. ETOH use this morning. [facility] 20. -labs -trop -ekg -cxr -librium 03/11/20 09:53 EKG shows 87 bpm, NSR, no ST elevation, no axis deviation, QTc 423. CXR negative for acute chest pathology. No mediastinal widening. 03/11/20 10:51 Labs reviewed. Laboratory Last Values WBC 4.0 K/mm3 (4.0-10.0) 03/11/20 09:30 RBC 4.83 M/mm3 (4.00-5.60) 03/11/20 09:30 Hgb 15.1 GM/dL (11.7-16.9) 03/11/20 09:30 Hct 43.9 % (35.4-49) 03/11/20 09:30 MCV 90.9 fl (80-96) 03/11/20 09:30 MCH 31.3 pg (25.7-33.7) 03/11/20 09:30 MCHC 34.4 g/dl (32.0-35.9) 03/11/20 09:30 RDW 14.7 % (11.9-15.9) 03/11/20 09:30 Plt Count 197 K/MM3 (134-434) 03/11/20 09:30 MPV 7.9 fl (7.5-11.1) D 03/11/20 09:30 Absolute Neuts (auto) 2.2 K/mm3 (1.5-8.0) 03/11/20 09:30 Neutrophils % 53.6 % (42.8-82.8) 03/11/20 09:30 Lymphocytes % 36.9 % (8-40) 03/11/20 09:30 Monocytes % 8.3 % (3.8-10.2) D 03/11/20 09:30 Eosinophils % 0.2 % (0-4.5) 03/11/20 09:30 Basophils % 1.0 % (0-2.0) 03/11/20 09:30 Nucleated RBC % 0 % (0-0) 03/11/20 09:30 Sodium 141 mmol/L (136-145) 03/11/20 09:30 Potassium 3.6 mmol/L (3.5-5.1) 03/11/20 09:30 Chloride 105 mmol/L (98-107) 03/11/20 09:30 Carbon Dioxide 27 mmol/L (21-32) 03/11/20 09:30 Anion Gap 9 MMOL/L (8-16) 03/11/20 09:30 BUN 6.5 mg/dL (7-18) L 03/11/20 09:30 Creatinine 0.7 mg/dL (0.55-1.3) 03/11/20 09:30 Est GFR (CKD-EPI)AfAm 133.02 03/11/20 09:30 Est GFR (CKD-EPI)NonAf 114.77 03/11/20 09:30 Random Glucose 104 mg/dL (74-106) 03/11/20 09:30 Calcium 8.6 mg/dL (8.5-10.1) 03/11/20 09:30 Total Bilirubin 0.5 mg/dL (0.2-1) 03/11/20 09:30 AST 39 U/L (15-37) H 03/11/20 09:30 ALT 49 U/L (13-61) 03/11/20 09:30 Alkaline Phosphatase 106 U/L (45-117) 03/11/20 09:30 Creatine Kinase 318 U/L (26-308) H 03/11/20 09:30 Troponin I < 0.02 ng/ml (0.00-0.05) 03/11/20 09:30 Total Protein 8.5 g/dl (6.4-8.2) H 03/11/20 09:30 Albumin 4.1 g/dl (3.4-5.0) 03/11/20 09:30 03/11/20 11:11 Pt reassessed. No active chest pain. Plan to admit for tele obs given cocaine usage. 03/11/20 14:10 D/w Dr. Neville who accepts the patient for admission. Discharge - Discharge Information Problems reviewed: Yes Clinical Impression/Diagnosis: Cocaine use disorder, Alcohol use disorder Chest pain Qualifiers: Chest pain type: unspecified Qualified Code(s): R07.9 - Chest pain, unspecified Condition: Guarded - Admission Yes - Follow up/Referral - Patient Discharge Instructions - Post Discharge Activity CIWA Nausea/Vomitin-Mild Nausea/No Vomiting Muscle Tremors: 5 Anxiety: 5 Agitation: 5 Paroxysmal Sweats: 2 Orientation: 0-Oriented Tacttile Disturbances: 1-Very Mild Itch/Numbness Auditory Disturbances: 0-None Visual Disturbances: 0-None Headache: 1-Very Mild CIWA-Ar Total Score: 20
[2020-03-11] MEDS ORDERED: chlordiazePOXIDE HCL 25 MG CAPSULE PO ONE (08:55)
--- NOTE | 2020-03-11 09:15 | PDOC ---
Attending Attestation - Resident Resident Name: Ravin Desaihan - ED Attending Attestation I have performed the following: I have examined & evaluated the patient, The case was reviewed & discussed with the resident, I agree w/resident's findings & plan, Exceptions are as noted - HPI HPI: 03/11/20 09:09 This is a 44YOM with h/o depression, anxiety, takes psychoactive medications including Seroquel and Trazodone, GERD, polysubstance use, and EtOH use disorder who p/w left-sided stabbing chest pain radiating up to his neck which started this morning, as well as stated withdrawal symptoms. States that he last drank EtOH this morning, and he last used cocaine yesterday (snorted $200 worth per his report). He denies any prior h/o HTN. Denies SOB, vertigo, abdominal pain, n/t/w focally, LOC, or other symptoms. - Physicial Exam PE: 03/11/20 09:13 GENERAL: nontoxic-appearing, A/Ox4, no distress, answers questions appropriately, odor of alcohol is present but patient has no slurred speech, appears slightly disheveled HEENT: PERRLA, EOMI, moist mucous membranes NECK/BACK: no midline ttp, no spinal stepoff or deformity, no hematoma, full ROM, neck supple CARDIOVASCULAR: regular rate/rhythm, no MGR, strong peripheral pulses, capillary refill <2 seconds, extremities wwp, no edema LUNGS/RESPIRATORY: no respiratory distress, CTAB GI/ABDOMEN: symmetric [id number], normoactive BS, soft, no ttp, no midline pulsatile masses : no CVA tenderness MSK/EXTREMITIES: no muscle atrophy, no acute deformity SKIN: tattoos noted, skin warm and dry, no pallor, no jaundice, no rash, no pathologic-appearing bruising, no skin breakdown, no cuts, no lesions NEUROLOGICAL: GCS 15, CN II-XII grossly intact, 5/5 strength proximally and distally, no facial droop - Medical Decision Making 03/11/20 09:10 44YOM with polysubstance use disorder, EtOH, smoking, p/w chest pain. Initial Vital Signs Temp Pulse Resp BP Pulse Ox 98.3 F 91 H 20 190/87 H 94 L 03/11/20 08:08 03/11/20 08:08 03/11/20 08:08 03/11/20 08:08 03/11/20 08:08 DDX IBNLT: concern is for cocaine-related chest pain with possibility of ACS, also the initial BP is concerning and will be a factor in the w/u decision but also could be a result of withdrawal symptoms. Other possibilities include pericarditis, aortic dissection, AAA, PTX (with snorting cocaine the increased risk is noted), PE, esophageal tear, alcoholic gastritis, PUD, EtOH pancreatitis, pleurisy, pleuritis, panic/anxiety, etc. W/U ordered: Labs as noted below, EKG CXR. TX ordered: monitor, librium small dose EKG: Reviewed; results as noted in ECG Review section. CXR: Nothing acute Laboratory Tests 03/11/20 03/11/20 09:30 09:30 WBC 4.0 RBC 4.83 Hgb 15.1 Hct 43.9 MCV 90.9 MCH 31.3 MCHC 34.4 RDW 14.7 Plt Count 197 MPV 7.9 D Absolute Neuts (auto) 2.2 Neutrophils % 53.6 Lymphocytes % 36.9 Monocytes % 8.3 D Eosinophils % 0.2 Basophils % 1.0 Nucleated RBC % 0 Sodium 141 Potassium 3.6 Chloride 105 Carbon Dioxide 27 Anion Gap 9 BUN 6.5 L Creatinine 0.7 Est GFR (CKD-EPI)AfAm 133.02 Est GFR (CKD-EPI)NonAf 114.77 Random Glucose 104 Calcium 8.6 Total Bilirubin 0.5 AST 39 H ALT 49 Alkaline Phosphatase 106 Creatine Kinase 318 H Creatine Kinase Index 0.8 CK-MB (CK-2) 2.6 Troponin I < 0.02 Total Protein 8.5 H Albumin 4.1 HEART score not elevated but patient is cocaine user and has continued pain. The Pt is unsafe for discharge at this time. They require further hospital observation, workup, and treatment. Resident Dr. Desai is completing procedures for Tele Obs. Heart Score/ECG Review - History History: Moderately suspicious - Electrocardiogram EKG: Normal - Age Age: </= 45 - Risk Factors Risk Factors Heart Score: Yes Smoking History Based on the list above the patient has:: 1-2 risk factors - Troponin Troponin: </= normal limit - Score Heart Score - Total: 2 #1 03/11/20 08:15 Sinus rhythm, rate 87, normal axis and intervals, no ischemic ST-T changes Discharge - Discharge Information Problems reviewed: Yes Clinical Impression/Diagnosis: Cocaine use disorder, Alcohol use disorder Chest pain Qualifiers: Chest pain type: unspecified Qualified Code(s): R07.9 - Chest pain, unspecified Condition: Guarded - Admission Yes - Follow up/Referral - Patient Discharge Instructions - Post Discharge Activity
[2020-03-11] MEDS ORDERED: chlordiazePOXIDE HCL 25 MG CAPSULE ONE (09:17)
[2020-03-11 10:06] LABS: EOS % 0.2 % (0-4.5); HEMATOCRIT 43.9 % (35.4-49); HEMOGLOBIN 15.1 GM/dL (11.7-16.9); LYMPH % 36.9 % (8-40); MCH 31.3 pg (25.7-33.7); MCHC 34.4 g/dl (32.0-35.9); MEAN CELL VOLUME 90.9 fl (80-96); MEAN PLT VOLUME 7.9 fl (7.5-11.1); MONO % 8.3 % (3.8-10.2); NEUT % 53.6 % (42.8-82.8); PLATELET COUNT 197 K/MM3 (134-434); RBC 4.83 M/mm3 (4.00-5.60); RDW 14.7 % (11.9-15.9)
[2020-03-11 10:32] LABS: ALBUMIN 4.1 g/dl (3.4-5.0); ALK PHOS 106 U/L (45-117); ANION GAP 9 MMOL/L (8-16); BILIRUBIN,TOTAL 0.5 mg/dL (0.2-1); BLOOD UREA NITROGEN 6.5 mg/dL (7-18); CALCIUM 8.6 mg/dL (8.5-10.1); CHLORIDE 105 mmol/L (98-107); CO2 27 mmol/L (21-32); CREATININE 0.7 mg/dL (0.55-1.3); GLUCOSE,RANDOM 104 mg/dL (74-106); POTASSIUM 3.6 mmol/L (3.5-5.1); SGOT/AST 39 U/L (15-37); SGPT/ALT 49 U/L (13-61); SODIUM 141 mmol/L (136-145); TOT PROT 8.5 g/dl (6.4-8.2)
[2020-03-11 15:14] LABS: METHADONE, UR NEGATIVE ng/ml (CUTOFF=300); OPIATES, URI NEGATIVE ng/ml (CUTOFF=300); PHENCYCLIDINE,URINE NEGATIVE ng/ml (CUTOFF=25); URINE AMPHETAMINES NEGATIVE ng/ml (CUTOFF=500); URINE BARBITURATES NEGATIVE ng/ml (CUTOFF=200)
[2020-03-11 15:16] LABS: COCAINE, UR POSITIVE ng/ml (CUTOFF=300); URINE BENZODIAZEPINES POSITIVE ng/ml (CUTOFF=200)
[2020-03-11] MEDS: LORazepam 1 MG TABLET PO SCH (17:10)
[2020-03-11] MEDS: SODIUM CHLORIDE 1,000 ML IV SCH (17:20)
--- NOTE | 2020-03-11 17:44 | HP ---
CHIEF COMPLAINT: left sided chest pain PCP: HISTORY OF PRESENT ILLNESS: 44 year old male patient with past medical history of alcohol use disorder, polysubstance use, anxiety, depression, GERD, who presented to the ED with left sided chest pain radiating up his neck. The pain started this morning and is 8/10 in severity. The patient is very agitated and anxious, complaining of general myalgias, abdominal pain, headach 8/10 in severity, sweating, mild nausea, and tremors. The patient had his last alcoholic drink this morning and snorted $200 worth of cocaine yesterday. The patient reported throwing up multiple times today with what he described as "a lot" of blood in the vomit. His last use of cocaine was yesterday. He previously left [facility] yesterday. Repeat blood pressure gave 123/86 with a oxygen saturation of 94% on room air, when checked at bedside. His CIWA score was 11. Recent Travel: PAST MEDICAL HISTORY: Alcohol use disorder, Polysubstance use, Anxiety, Depression, GED PAST SURGICAL HISTORY: Right mandible fix Social History: Smokin cigarettes per day Alcohol:7-9 drinks 2-3 times a week Drugs: Cocaine Allergies pollen extracts Adverse Reaction (Verified 03/11/20 08:10) sneezing. HOME MEDICATIONS: Home Medications Medication Instructions Recorded Zolpidem Tartrate [Ambien] 10 mg PO HS #30 tablet 09/08/15 traZODone HCL [Desyrel -] 200 mg PO HS #60 tablet 09/08/15 Quetiapine Fumarate [Seroquel -] 200 mg PO BID #60 tab 06/06/16 REVIEW OF SYSTEMS CONSTITUTIONAL: fever, chills, diapohoresis, fatigue, malaise HEENT: CARDIOVASCULAR: chest pain 8/10 radiating up his neck RESPIRATORY: GASTROINTESTINAL: abdominal pain, nausea, vomiting, blood in vomit GENITOURINARY: MUSCULOSKELETAL: myalgia SKIN: HEMATOLOGIC/IMMUNOLOGIC: ENDOCRINE: NEUROLOGIC: headache 8/10 PSYCHIATRIC: anxiety Absent: suicidal or homicidal ideation PHYSICAL EXAMINATION Vital Signs - 24 hr 03/11/20 03/11/20 03/11/20 08:08 08:35 14:02 Temperature 98.3 F 99.6 F Pulse Rate 91 H Pulse Rate [ 86 93 H Radial] Respiratory 20 18 20 Rate Blood Pressure 190/87 H Blood Pressure 149/89 100/56 L [Left Arm] O2 Sat by Pulse 94 L 97 96 Oximetry (%) 03/11/20 15:51 Temperature 98.7 F Pulse Rate Pulse Rate [ 90 Radial] Respiratory Rate Blood Pressure Blood Pressure 127/76 [Left Arm] O2 Sat by Pulse 95 Oximetry (%) GENERAL: Awake, alert, and fully oriented, in mild acute distress. HEAD: Normal with no signs of trauma. EYES: Extraocular movements intact. No lid lag. EARS, NOSE, THROAT: Ears normal, nares patent, oropharynx clear without exudates. Moist mucous membranes. NECK: Normal range of motion, supple without lymphadenopathy, JVD, or masses. LUNGS: Breath sounds equal, clear to auscultation bilaterally. No wheezes, and no crackles. No accessory muscle use. HEART: Tachycardic, normal S1 and S2 without murmur, rub or gallop. Chest painful on palpation. ABDOMEN: Soft, diffusely tender, not distended, normoactive bowel sounds, no guarding, no rebound, no masses. MUSCULOSKELETAL: Normal range of motion at all joints. No bony deformities or tenderness. UPPER EXTREMITIES: 2+ pulses, warm, well-perfused. No cyanosis. No clubbing. No peripheral edema. LOWER EXTREMITIES: 2+ pulses, warm, well-perfused. No calf tenderness. No peripheral edema. NEUROLOGICAL: Normal speech. Normal gait. PSYCHIATRIC: Anxious and agitated. No suicidal or homicidal ideation. SKIN: Warm, dry, normal turgor, no rashes or lesions noted, normal capillary refill. Laboratory Results - last 24 hr 03/11/20 03/11/20 03/11/20 09:30 09:30 14:55 WBC 4.0 RBC 4.83 Hgb 15.1 Hct 43.9 MCV 90.9 MCH 31.3 MCHC 34.4 RDW 14.7 Plt Count 197 MPV 7.9 D Absolute Neuts (auto) 2.2 Neutrophils % 53.6 Lymphocytes % 36.9 Monocytes % 8.3 D Eosinophils % 0.2 Basophils % 1.0 Nucleated RBC % 0 Sodium 141 Potassium 3.6 Chloride 105 Carbon Dioxide 27 Anion Gap 9 BUN 6.5 L Creatinine 0.7 Est GFR (CKD-EPI)AfAm 133.02 Est GFR (CKD-EPI)NonAf 114.77 Random Glucose 104 Calcium 8.6 Total Bilirubin 0.5 AST 39 H ALT 49 Alkaline Phosphatase 106 Creatine Kinase 318 H Creatine Kinase Index 0.8 CK-MB (CK-2) 2.6 Troponin I < 0.02 Total Protein 8.5 H Albumin 4.1 Opiates Screen Negative Methadone Screen Negative Barbiturate Screen Negative Phencyclidine Screen Negative Ur Amphetamines Screen Negative MDMA (Ecstasy) Screen Negative Benzodiazepines Screen Positive A* Cocaine Screen Positive A* U Marijuana (THC) Screen Positive A* ASSESSMENT/PLAN: 44 year old male patient with past medical history of alcohol use disorder, polysubstance use, anxiety, depression, GERD, who presented to the ED with left sided chest pain radiating up his neck. 1. Chest pain secondary to vasospasm of cardiac arteries secondary to cocaine use - Cardio consult - Repeat Troponins - Tele - Aspirin - Repeat ECG 2. Alcohol withdrawal - Monitoring CIWA. Currently 11 - Librium or Ativan Taper - Vit B12. Thiamin, Folic Acid - Patient's alcohol level measurement - IV Fluids - warehouse worker consult for possible return of patient to [facility] 3. Bloody vomit secondary to Alcohol use - IV Protonix - Monitoring CBC, BMP, vitals 4. Polysubstance use - Urine Toxicology #FEN - IV Fluids, Monitoring electrolytes, Regular Diet DVT PPx - Lovenox GI PPx - Protonix IV Dispo - Tele and CIWA monitoring Visit type - Emergency Visit Emergency Visit: Yes ED Registration Date: 03/11/20 Care time: The patient presented to the Emergency Department on the above date and was hospitalized for further evaluation of their emergent condition. - New Patient This patient is new to me today: Yes Date on this admission: 03/11/20 - Critical Care Critical Care patient: No ATTENDING PHYSICIAN STATEMENT I saw and evaluated the patient. I reviewed the resident's note and discussed the case with the resident. I agree with the resident's findings and plan as documented. SUBJECTIVE: OBJECTIVE: ASSESSMENT AND PLAN:
--- NOTE | 2020-03-11 18:58 | PN ---
Teaching Attending Note Name of Resident: Bartolo Erwin ATTENDING PHYSICIAN STATEMENT I saw and evaluated the patient. I reviewed the resident's note and discussed the case with the resident. I agree with the resident's findings and plan as documented. SUBJECTIVE: 44 year old male patient with past medical history of polysubstance use, anxiety , depression, GERD, who presented to the ED with left sided chest pain radiating up his neck after using cocaine. The pain started this morning and is 8/10 in severity OBJECTIVE: Last Vital Signs Temp Pulse Resp BP Pulse Ox 98.5 F 89 18 135/85 95 03/11/20 16:19 03/11/20 16:19 03/11/20 16:19 03/11/20 16:19 03/11/20 16:19 GENERAL: Awake, alert, and fully oriented, appears mildly agitated. HEAD: Normal with no signs of trauma. EYES: Pupils equal, round and reactive to light, extraocular movements intact, sclera anicteric, conjunctiva clear. No lid lag. EARS, NOSE, THROAT: Ears normal, nares patent, oropharynx clear without exudates. Moist mucous membranes. NECK: Normal range of motion, supple without lymphadenopathy, JVD, or masses. LUNGS: Breath sounds equal, clear to auscultation bilaterally. No wheezes, and no crackles. No accessory muscle use. HEART: Regular rate and rhythm, normal S1 and S2 without murmur, rub or gallop. ABDOMEN: Soft, nontender, not distended, normoactive bowel sounds, no guarding, no rebound, no masses. No hepatomegaly or splenomegaly. MUSCULOSKELETAL: Normal range of motion at all joints. No bony deformities or tenderness. No CVA tenderness. UPPER EXTREMITIES: 2+ pulses, warm, well-perfused. No cyanosis. No clubbing. Cap refill <2 seconds. No peripheral edema. LOWER EXTREMITIES: 2+ pulses, warm, well-perfused. No calf tenderness. No peripheral edema. NEUROLOGICAL: Cranial nerves II-XII intact. Normal speech. Normal gait. PSYCHIATRIC: Cooperative. Good eye contact. Appropriate mood and affect. SKIN: Warm, dry, normal turgor, no rashes or lesions noted. ASSESSMENT AND PLAN: #Chest pain post cocaine use - no EKG changes, initial troponin -ve, UTox +ve cocaine, benzo, marijuana - Cardio consult, Repeat Troponins, EKG - Tele - Aspirin, benzodiazepine, IV hydration, SW consult # Alcohol withdrawal - Monitoring CIWA. Currently 11 - benzodiazepines - Vit B12. Thiamin, Folic Acid - Patient's alcohol level measurement - IV Fluids - crop farm workers consult for possible return of patient to [facility] - reported hematemesis in AM - IV Protonix - Monitoring CBC, BMP, vitals DVT PPx - Lovenox
[2020-03-11] MEDS ORDERED: FOLIC ACID INJECTION - 1 MG, THIAMINE HCL 100 MG, MULTIVIT INJECTION ADULT 10 ML in SOD... IVPB ONE (19:30)
[2020-03-12] MEDS: LORazepam 1 MG TABLET PO SCH ×5 (00:11→22:34)
[2020-03-12] MEDS: SODIUM CHLORIDE 1,000 ML IV SCH ×2 (05:05→17:15)
--- NOTE | 2020-03-12 07:16 | CON.CARD ---
Consult Consult Specialty:: cardio - History of Present Illness Chief Complaint: chest pain History of Present Illness: 44 year old male with chest pain. + h/o alcohol and cocaine abuse, anxiety, depression, GERD. describes left sided chest pain in AM on DOA. had used cocaine the day prior. also reported feeling anxious/agitated, general myalgias, abdominal pain, headach, sweating, tremors. vomited several times on DOA, noted blood in vomit. signed out AMA from [facility] the day prior to admission states the pain was localized in L pectoral region not radiating to back or otherwise. has pain in back as well as "all over my body". no tearing sensation. the CP remains present--has not resolved for approx 48 hrs. also diaphoretic and sob at times. feels he is withdrawing (etoh) hospital course: initial BP 190-->came down to 110s-120s sat 94%--came up afebrile trop neg x 2 Covid pending Utox positive benzo, marijuana, cocaine. etoh level elevated ECG normal - Alcohol/Substance Use Hx Alcohol Use: Yes - Smoking History Smoking history: Current every day smoker Have you smoked in the past 12 months: No Aproximately how many cigarettes per day: 3 Home Medications - Allergies Allergies/Adverse Reactions: Allergies Allergy/AdvReac Type Severity Reaction Status Date / Time pollen extracts AdvReac Verified 03/11/20 08:10 - Home Medications Home Medications: Ambulatory Orders Zolpidem Tartrate [Ambien] 10 mg PO HS #30 tablet 09/08/15 traZODone HCL [Desyrel -] 200 mg PO HS #60 tablet 09/08/15 Quetiapine Fumarate [Seroquel -] 200 mg PO BID #60 tab 06/06/16 Family Medical History Family History: Denies (no IA/CAD) Review of Systems - Review of Systems Constitutional: denies: Chills, Fever Eyes: denies: Eye Pain HENT: denies: Nasal Congestion Neck: denies: Stiffness Cardiovascular: denies: Palpitations Respiratory: denies: Orthopnea, PND Gastrointestinal: denies: Diarrhea, Rectal Bleeding Genitourinary: denies: Burning, Hematuria Musculoskeletal: denies: Muscle Pain Integumentary: denies: Rash Neurological: denies: Numbness, Seizure, Syncope Endocrine: denies: Excessive Sweating Hematology/Lymphatic: denies: Excessive Bleeding Vital Signs: Vital Signs Temperature 98.1 F 03/12/20 06:00 Pulse Rate 83 03/12/20 06:00 Respiratory Rate 20 03/12/20 06:00 Blood Pressure 121/71 03/12/20 06:00 O2 Sat by Pulse Oximetry (%) 99 03/12/20 06:00 Constitutional: Yes: Well Nourished, No Distress Eyes: No: Sclera Icterus HENT: No: Nasal Congestion Neck: No: Decreased ROM Respiratory: Yes: CTA Bilaterally. No: Accessory Muscle Use, Rales, Wheezes Gastrointestinal: Yes: Normal Bowel Sounds. No: Distention, Hepatomegaly, Palpable Mass, Tenderness Cardiovascular: Yes: Regular Rate and Rhythm JVD: No Carotid Bruit: No PMI: Non-Displaced Heart Sounds: Yes: S1, S2. No: Gallop Murmur: No: Systolic Murmur, Diastolic Murmur Musculoskeletal: Yes: Other (No kyphosis) Extremities: No: Cool, Cyanosis Edema: No Peripheral Pulses: 2+ Left Carotid, 2+ Right Carotid, 2+ Left Doralis Pedis, 2+ Right Dorsalis Pedis Integumentary: No: Jaundice Neurological: Yes: Alert, Oriented (x3) Psychiatric: No: Agitated - Other Data Labs, Other Data: CBC, BMP 03/11/20 09:30 03/11/20 09:30 Troponin, BNP 03/11/20 03/11/20 09:30 17:58 Troponin I < 0.02 < 0.02 Troponin, BNP 03/11/20 03/11/20 09:30 17:58 Troponin I < 0.02 < 0.02 Assessment/Plan ECG: NSR, WNL CXR: clear lungs/pleura, normal heart and mediastinal silhouette chest pain, in setting of cocaine abuse: -ECG normal, trop neg x 2. not c/w ACS or coronary spasm -further w/u not indicated at this time, consider stress echo if CP recurs HTN: -initially elevated in setting of cocaine abuse and marked anxiety about his chest pain -normalized quickly -observe trend hematemesis: -? Gwendolyn Castillo tear in setting of etoh abuse -per hospitalist
[2020-03-12] MEDS: LORazepam 1 MG TABLET PO PRN ×2 (09:35→19:01)
[2020-03-12] MEDS: FOLIC ACID 1 MG TABLET (FP) PO SCH (09:35)
[2020-03-12] MEDS: PANTOPRAZOLE SODIUM 40 MG VIAL IVPUSH SCH (09:36)
[2020-03-12] MEDS: ENOXAPARIN NA (PORCINE) 40 MG/0.4 ML DISP.SYRIN SQ SCH (09:36)
[2020-03-12] MEDS: ASPIRIN COATED 81 MG TABLET.EC PO SCH (09:36)
[2020-03-12] MEDS: THIAMINE HCL 100 MG TABLET (FP) PO SCH (09:37)
[2020-03-12] MEDS: CYANOCOBALAMIN (VITAMIN B-12) 100 MCG TABLET PO SCH (09:37)
[2020-03-12 10:00] LABS: HEMATOCRIT 41.8 % (35.4-49); MCH 30.4 pg (25.7-33.7); MCHC 33.6 g/dl (32.0-35.9); MEAN CELL VOLUME 90.4 fl (80-96); MEAN PLT VOLUME 8.1 fl (7.5-11.1); PLATELET COUNT 161 K/MM3 (134-434); RBC 4.63 M/mm3 (4.00-5.60); RDW 14.2 % (11.9-15.9); WHITE BLOOD COUNT 3.2 K/mm3 (4.0-10.0)
[2020-03-12 10:24] LABS: BLOOD UREA NITROGEN 8.5 mg/dL (7-18); CALCIUM 7.5 mg/dL (8.5-10.1); CREATININE 0.7 mg/dL (0.55-1.3); MAGNESIUM 1.7 mg/dL (1.8-2.4); PHOSPHOROUS 2.4 mg/dL (2.5-4.9); POTASSIUM 3.4 mmol/L (3.5-5.1)
--- NOTE | 2020-03-12 10:35 | PN ---
Physical Exam: 44 year old male patient with past medical history of polysubstance use, anxiety, depression, GERD, who presented to the ED with left sided chest pain radiating up his neck after using cocaine. 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 HEAD: Normal with no signs of trauma. EYES: PERRL, extraocular movements intact, sclera anicteric, conjunctiva clear. No ptosis. ENT: Ears normal, nares patent, oropharynx clear without exudates, moist mucous membranes. NECK: Trachea midline, full range of motion, supple. LUNGS: Breath sounds equal, clear to auscultation bilaterally, no wheezes, no crackles, no accessory muscle use. HEART: Regular rate and rhythm, S1, S2 without murmur, rub or gallop. ABDOMEN: Soft, nontender, nondistended, normoactive bowel sounds, no guarding, no rebound, no hepatosplenomegaly, no masses. EXTREMITIES: 2+ pulses, warm, well-perfused, no edema. NEUROLOGICAL: Cranial nerves II through XII grossly intact. Normal speech, gait not observed. PSYCH: Normal mood, normal affect. SKIN: Warm, dry, normal turgor, no rashes or lesions noted CIWA: 10 Laboratory Results - last 24 hr 03/11/20 03/11/20 03/11/20 09:30 14:55 17:58 WBC RBC Hgb Hct MCV MCH MCHC RDW Plt Count MPV Sodium 141 Potassium 3.6 Chloride 105 Carbon Dioxide 27 Anion Gap 9 BUN 6.5 L Creatinine 0.7 Est GFR (CKD-EPI)AfAm 133.02 Est GFR (CKD-EPI)NonAf 114.77 Random Glucose 104 Calcium 8.6 Phosphorus Magnesium Total Bilirubin 0.5 AST 39 H ALT 49 Alkaline Phosphatase 106 Creatine Kinase 318 H Creatine Kinase Index 0.8 CK-MB (CK-2) 2.6 Troponin I < 0.02 < 0.02 Total Protein 8.5 H Albumin 4.1 TSH Cancelled Opiates Screen Negative Methadone Screen Negative Barbiturate Screen Negative Phencyclidine Screen Negative Ur Amphetamines Screen Negative MDMA (Ecstasy) Screen Negative Benzodiazepines Screen Positive A* Cocaine Screen Positive A* U Marijuana (THC) Screen Positive A* Alcohol, Quantitative 03/11/20 03/12/20 03/12/20 17:58 08:25 08:25 WBC 3.2 L RBC 4.63 Hgb 14.0 Hct 41.8 MCV 90.4 MCH 30.4 MCHC 33.6 RDW 14.2 Plt Count 161 MPV 8.1 Sodium 140 Potassium 3.4 L Chloride 104 Carbon Dioxide 28 Anion Gap 8 BUN 8.5 Creatinine 0.7 Est GFR (CKD-EPI)AfAm 133.02 Est GFR (CKD-EPI)NonAf 114.77 Random Glucose Calcium 7.5 L Phosphorus 2.4 L Magnesium 1.7 L Total Bilirubin AST ALT Alkaline Phosphatase Creatine Kinase Creatine Kinase Index CK-MB (CK-2) Troponin I Total Protein Albumin TSH Opiates Screen Methadone Screen Barbiturate Screen Phencyclidine Screen Ur Amphetamines Screen MDMA (Ecstasy) Screen Benzodiazepines Screen Cocaine Screen U Marijuana (THC) Screen Alcohol, Quantitative 297.1 H 03/12/20 08:25 WBC RBC Hgb Hct MCV MCH MCHC RDW Plt Count MPV Sodium Potassium Chloride Carbon Dioxide Anion Gap BUN Creatinine Est GFR (CKD-EPI)AfAm Est GFR (CKD-EPI)NonAf Random Glucose Calcium Phosphorus Magnesium Total Bilirubin AST ALT Alkaline Phosphatase Creatine Kinase Creatine Kinase Index CK-MB (CK-2) Troponin I Total Protein Albumin TSH Opiates Screen Methadone Screen Barbiturate Screen Phencyclidine Screen Ur Amphetamines Screen MDMA (Ecstasy) Screen Benzodiazepines Screen Cocaine Screen U Marijuana (THC) Screen Alcohol, Quantitative 147.5 H Active Medications Generic Name Dose Route Start Last Admin Trade Name Freq PRN Reason Stop Dose Admin Aspirin 81 mg 03/12/20 10:00 03/12/20 09:36 Ecotrin - PO 81 mg DAILY JERICHO Administration Cyanocobalamin 100 mcg 03/12/20 10:00 03/12/20 09:37 Vitamin B12 - PO 100 mcg DAILY JERICHO Administration Enoxaparin Sodium 40 mg 03/12/20 10:00 03/12/20 09:36 Lovenox - SQ 40 mg DAILY JERICHO Administration Folic Acid 1 mg 03/12/20 10:00 03/12/20 09:35 Folic Acid - PO 1 mg DAILY JERICHO Administration Sodium Chloride 1,000 mls @ 83 mls/hr 03/11/20 16:30 03/12/20 05:05 Normal Saline - IV 83 mls/hr ASDIR JERICHO Administration Lorazepam 1 mg 03/13/20 05:00 Ativan - PO 03/13/20 23:01 0500,1100,1700,2300 JERICHO Lorazepam 1 mg 03/11/20 15:46 03/12/20 09:35 Ativan - PO 03/13/20 23:59 1 mg Q4H PRN Administration Symptoms of Withdrawal Lorazepam 2 mg 03/11/20 17:00 03/12/20 05:57 Ativan - PO 03/12/20 23:01 2 mg 0500,1100,1700,2300 JERICHO Administration Lorazepam 0.5 mg 03/14/20 05:00 Ativan - PO 03/14/20 23:01 Q6H JERICHO Lorazepam 0.5 mg 03/14/20 00:00 Ativan - PO 03/15/20 00:00 Q4H PRN Symptoms of Withdrawal Lorazepam 0.5 mg 03/15/20 05:00 Ativan - PO 03/15/20 05:01 ONCE ONE Pantoprazole Sodium 40 mg 03/12/20 10:00 03/12/20 09:36 Protonix Iv IVPUSH 40 mg DAILY JERICHO Administration Thiamine HCl 100 mg 03/12/20 10:00 03/12/20 09:37 Vitamin B1 - PO 100 mg DAILY JERICHO Administration ASSESSMENT/PLAN: #Chest pain post cocaine use - no EKG changes, initial troponin -ve, UTox +ve cocaine, benzo, marijuana - Cardio consult appreciated, Repeat Troponins, EKG - no need for tele, but will continue 1:1 - Aspirin, benzodiazepine, IV hydration, SW consult # Alcohol withdrawal - Monitoring CIWA. Currently 10 - benzodiazepines - Vit B12. 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 - New Patient This patient is new to me today: No - Critical Care Critical Care patient: No - Discharge Referral Referred to [facility] Med P.C.: No
[2020-03-12 11:20] VITALS: BMI 32.3
[2020-03-13] MEDS: LORazepam 1 MG TABLET PO SCH ×4 (05:34→22:36)
[2020-03-13] MEDS ORDERED: POTASSIUM CHLORIDE TABS 10 MEQ TABLET.ER (FP) PO ONE (09:06)
--- NOTE | 2020-03-13 09:15 | EKG ---
Test Reason : Blood Pressure : / mmHG Vent. Rate : 091 BPM Atrial Rate : 091 BPM P-R Int : 150 ms QRS Dur : 092 ms QT Int : 352 ms P-R-T Axes : 054 007 032 degrees QTc Int : 432 ms NORMAL SINUS RHYTHM NORMAL ECG WHEN COMPARED WITH ECG OF 11-MAR-2020 08:15, NO SIGNIFICANT CHANGE WAS FOUND Confirmed by Heide Juarez ([id number]) on 03/13/2020 9:14:59 AM Referred By: Kassie BOWMAN Confirmed By:Heide Juarez
--- NOTE | 2020-03-13 09:22 | EKG ---
Test Reason : Blood Pressure : / mmHG Vent. Rate : 090 BPM Atrial Rate : 090 BPM P-R Int : 160 ms QRS Dur : 088 ms QT Int : 358 ms P-R-T Axes : 055 006 -06 degrees QTc Int : 437 ms NORMAL SINUS RHYTHM NONSPECIFIC T WAVE ABNORMALITY ABNORMAL ECG WHEN COMPARED WITH ECG OF 11-MAR-2020 08:15, No significant changes Confirmed by Heide Juarez ([id number]) on 03/13/2020 9:22:35 AM Referred By: Confirmed By:Heide Juarez
[2020-03-13] MEDS ORDERED: MAGNESIUM 2GM/50ML STERILE WATER IVPB IVPB ONE (09:30)
[2020-03-13] MEDS ORDERED: POTASSIUM PHOSPHATE 30 MM in SODIUM CHLORIDE 500 ML IVPB ONE (09:30)
[2020-03-13] MEDS ORDERED: PT OWN MED DRAWER 7, Y5N ONE (09:36)
[2020-03-13] MEDS: THIAMINE HCL 100 MG TABLET (FP) PO SCH (10:10)
[2020-03-13] MEDS: CYANOCOBALAMIN (VITAMIN B-12) 100 MCG TABLET PO SCH (10:11)
[2020-03-13] MEDS: ASPIRIN COATED 81 MG TABLET.EC PO SCH (10:11)
[2020-03-13] MEDS: FOLIC ACID 1 MG TABLET (FP) PO SCH (10:11)
[2020-03-13] MEDS: ENOXAPARIN NA (PORCINE) 40 MG/0.4 ML DISP.SYRIN SQ SCH (10:14)
[2020-03-13] MEDS: PANTOPRAZOLE SODIUM 40 MG VIAL IVPUSH SCH (10:14)
--- NOTE | 2020-03-13 11:18 | PN ---
Progress Note (short form) - Note Progress Note: s: no cp sob palps dizzy Current Medications Generic Name Dose Route Start Last Admin Trade Name Freq PRN Reason Stop Dose Admin Aspirin 81 mg 03/12/20 10:00 03/13/20 10:11 Ecotrin - PO 81 mg DAILY JERICHO Administration Cyanocobalamin 100 mcg 03/12/20 10:00 03/13/20 10:11 Vitamin B12 - PO 100 mcg DAILY JERICHO Administration Enoxaparin Sodium 40 mg 03/12/20 10:00 03/13/20 10:14 Lovenox - SQ 40 mg DAILY JERICHO Administration Folic Acid 1 mg 03/12/20 10:00 03/13/20 10:11 Folic Acid - PO 1 mg DAILY JERICHO Administration Sodium Chloride 1,000 mls @ 83 mls/hr 03/11/20 16:30 03/12/20 17:15 Normal Saline - IV 83 mls/hr ASDIR JERICHO Administration Potassium Phosphate 30 mm/ 510 mls @ 62.5 mls/hr 03/13/20 09:30 Sodium Chloride IVPB 03/13/20 17:39 ONCE ONE Lorazepam 1 mg 03/13/20 05:00 03/13/20 11:04 Ativan - PO 03/13/20 23:01 1 mg 0500,1100,1700,2300 JERICHO Administration Lorazepam 1 mg 03/11/20 15:46 03/12/20 19:01 Ativan - PO 03/13/20 23:59 1 mg Q4H PRN Administration Symptoms of Withdrawal Lorazepam 0.5 mg 03/14/20 05:00 Ativan - PO 03/14/20 23:01 Q6H JERICHO Lorazepam 0.5 mg 03/14/20 00:00 Ativan - PO 03/15/20 00:00 Q4H PRN Symptoms of Withdrawal Lorazepam 0.5 mg 03/15/20 05:00 Ativan - PO 03/15/20 05:01 ONCE ONE Pantoprazole Sodium 40 mg 03/12/20 10:00 03/13/20 10:14 Protonix Iv IVPUSH 40 mg DAILY JERICHO Administration Thiamine HCl 100 mg 03/12/20 10:00 03/13/20 10:10 Vitamin B1 - PO 100 mg DAILY JERICHO Administration Vital Signs Period Temp Pulse Resp BP Sys/[place] Pulse Ox Last 24 Hr 98.1 F-98.8 F 86-96 16-20 139-156/79-90 95-99 Constitutional: Yes: Well Nourished, No Distress Eyes: No: Sclera Icterus Respiratory: Yes: CTA Bilaterally. No: Accessory Muscle Use, Rales, Wheezes Gastrointestinal: Yes: Normal Bowel Sounds. No: Distention, Hepatomegaly, Palpable Mass, Tenderness Cardiovascular: Yes: Regular Rate and Rhythm JVD: No Carotid Bruit: No PMI: Non-Displaced Heart Sounds: Yes: S1, S2. No: Gallop Murmur: No: Systolic Murmur, Diastolic Murmur Extremities: No: Cool, Cyanosis Edema: No Peripheral Pulses: 2+ Left Carotid, 2+ Right Carotid, 2+ Left Doralis Pedis, 2+ Right Dorsalis Pedis Integumentary: No: Jaundice Neurological: Yes: Alert, Oriented (x3) Psychiatric: No: Agitated Laboratory Last Values WBC 3.2 K/mm3 (4.0-10.0) L 03/12/20 08:25 RBC 4.63 M/mm3 (4.00-5.60) 03/12/20 08:25 Hgb 14.0 GM/dL (11.7-16.9) 03/12/20 08:25 Hct 41.8 % (35.4-49) 03/12/20 08:25 MCV 90.4 fl (80-96) 03/12/20 08:25 MCH 30.4 pg (25.7-33.7) 03/12/20 08:25 MCHC 33.6 g/dl (32.0-35.9) 03/12/20 08:25 RDW 14.2 % (11.9-15.9) 03/12/20 08:25 Plt Count 161 K/MM3 (134-434) 03/12/20 08:25 MPV 8.1 fl (7.5-11.1) 03/12/20 08:25 Absolute Neuts (auto) 2.2 K/mm3 (1.5-8.0) 03/11/20 09:30 Neutrophils % 53.6 % (42.8-82.8) 03/11/20 09:30 Lymphocytes % 36.9 % (8-40) 03/11/20 09:30 Monocytes % 8.3 % (3.8-10.2) D 03/11/20 09:30 Eosinophils % 0.2 % (0-4.5) 03/11/20 09:30 Basophils % 1.0 % (0-2.0) 03/11/20 09:30 Nucleated RBC % 0 % (0-0) 03/11/20 09:30 Sodium 140 mmol/L (136-145) 03/12/20 08:25 Potassium 3.4 mmol/L (3.5-5.1) L 03/12/20 08:25 Chloride 104 mmol/L (98-107) 03/12/20 08:25 Carbon Dioxide 28 mmol/L (21-32) 03/12/20 08:25 Anion Gap 8 MMOL/L (8-16) 03/12/20 08:25 BUN 8.5 mg/dL (7-18) 03/12/20 08:25 Creatinine 0.7 mg/dL (0.55-1.3) 03/12/20 08:25 Est GFR (CKD-EPI)AfAm 133.02 03/12/20 08:25 Est GFR (CKD-EPI)NonAf 114.77 03/12/20 08:25 POC Glucometer 98 UNITS (80-120) 03/13/20 05:35 Random Glucose 128 mg/dL (74-106) H 03/12/20 08:25 Calcium 7.5 mg/dL (8.5-10.1) L 03/12/20 08:25 Phosphorus 2.4 mg/dL (2.5-4.9) L 03/12/20 08:25 Magnesium 1.7 mg/dL (1.8-2.4) L 03/12/20 08:25 Total Bilirubin 0.5 mg/dL (0.2-1) 03/11/20 09:30 AST 39 U/L (15-37) H 03/11/20 09:30 ALT 49 U/L (13-61) 03/11/20 09:30 Alkaline Phosphatase 106 U/L (45-117) 03/11/20 09:30 Creatine Kinase 318 U/L (26-308) H 03/11/20 09:30 Creatine Kinase Index 0.8 % (0.0-5.0) 03/11/20 09:30 CK-MB (CK-2) 2.6 ng/mL (0.5-3.6) 03/11/20 09:30 Troponin I < 0.02 ng/ml (0.00-0.05) 03/11/20 17:58 Total Protein 8.5 g/dl (6.4-8.2) H 03/11/20 09:30 Albumin 4.1 g/dl (3.4-5.0) 03/11/20 09:30 TSH Cancelled 03/11/20 17:58 Opiates Screen Negative ng/ml (IMPSIA=842) 03/11/20 14:55 Methadone Screen Negative ng/ml (BNXBWD=243) 03/11/20 14:55 Barbiturate Screen Negative ng/ml (KIIVLW=287) 03/11/20 14:55 Phencyclidine Screen Negative ng/ml (CUTOFF=25) 03/11/20 14:55 Ur Amphetamines Screen Negative ng/ml (MWQQMF=557) 03/11/20 14:55 MDMA (Ecstasy) Screen Negative ng/ml (IYCSBL=293) 03/11/20 14:55 Benzodiazepines Screen Positive ng/ml (QJNHNF=956) A* 03/11/20 14:55 Cocaine Screen Positive ng/ml (TTUZRU=616) A* 03/11/20 14:55 U Marijuana (THC) Screen Positive ng/ml (CUTOFF=50) A* 03/11/20 14:55 Alcohol, Quantitative 147.5 mg/dL (0.0-5.0) H 03/12/20 08:25 tele: sr Assessment/Plan ECG: NSR, WNL CXR: clear lungs/pleura, normal heart and mediastinal silhouette chest pain, in setting of cocaine abuse: -ECG normal, trop neg. not c/w ACS or coronary spasm -further w/u not indicated at this time, consider stress echo if CP recurs HTN: -initially elevated in setting of cocaine abuse and marked anxiety about his chest pain -improved quickly -observe trend hematemesis: -per hospitalist
[2020-03-13 11:27] LABS: ARTERIAL BLD GAS O2 SATURATION 97.9 mmHg (95-98); ARTERIAL BLOOD GAS BASE EXCESS 3.3 mmol/L (-2-2); ARTERIAL BLOOD GAS PO2 95.2 mmHg (80-100); ARTERIAL BLOOD GAS pH 7.512 (7.350-7.450)
--- NOTE | 2020-03-13 11:43 | CONSULT ---
Consult Detox [facility] Reason for Current Admission/Consult: Mr. Vieira is admitted for complaints of chest pain in the context of polysubstance use including cocaine. We are consulted for alcohol use disorder. 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 Referred by:: Dr. Almazan - History History of Present Illness: Mr. Lewis is a 44 years old man with a long history of alcohol dependence who was admitted to [facility] yesterday with complaints of chest pain. He was admitted to [facility] on 03/10 and left AMA after a few hours. The history he gave at that time includes the following: His last admission was for the period 09/23/2016- 09/27/2016 and he relapsed recently. He reports that he drinks 3 pints of Vodka and 12 bottles of beer daily with last use today. 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 He medical history of GERD, seizures and reports psych. history of anxiety, bipolar disorder, PTSD and schizophrenia. He reports 5 suicidal attempts and denies suicidal ideation at this time. He is unemployed, lives with his sister and denies pending legal issues. 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 Poison control called and recommended ethyl alcohol levels. Laboratory Tests 03/11/20 03/11/20 03/11/20 09:30 09:30 14:55 WBC 4.0 RBC 4.83 Hgb 15.1 Hct 43.9 MCV 90.9 MCH 31.3 MCHC 34.4 RDW 14.7 Plt Count 197 MPV 7.9 D Absolute Neuts (auto) 2.2 Neutrophils % 53.6 Lymphocytes % 36.9 Monocytes % 8.3 D Eosinophils % 0.2 Basophils % 1.0 Nucleated RBC % 0 Anticoagulation Therapy Puncture Site Patient Temperature ABG pH ABG pCO2 ABG pO2 ABG HCO3 ABG O2 Sat (Measured) ABG O2 Content ABG Base Excess Darryl Test Patient On Oxygen O2 Delivery Device Oxygen Flow Rate Vent Mode Vent Rate Mechanical Rate PEEP Pressure Support Vent Sodium 141 Potassium 3.6 Chloride 105 Carbon Dioxide 27 Anion Gap 9 BUN 6.5 L Creatinine 0.7 Est GFR (CKD-EPI)AfAm 133.02 Est GFR (CKD-EPI)NonAf 114.77 POC Glucometer Random Glucose 104 Calcium 8.6 Phosphorus Magnesium Total Bilirubin 0.5 AST 39 H ALT 49 Alkaline Phosphatase 106 Creatine Kinase 318 H Creatine Kinase Index 0.8 CK-MB (CK-2) 2.6 Troponin I < 0.02 Total Protein 8.5 H Albumin 4.1 TSH Opiates Screen Negative Methadone Screen Negative Barbiturate Screen Negative Phencyclidine Screen Negative Ur Amphetamines Screen Negative MDMA (Ecstasy) Screen Negative Benzodiazepines Screen Positive A* Cocaine Screen Positive A* U Marijuana (THC) Screen Positive A* Alcohol, Quantitative 03/11/20 03/11/20 03/12/20 17:58 17:58 08:25 WBC 3.2 L RBC 4.63 Hgb 14.0 Hct 41.8 MCV 90.4 MCH 30.4 MCHC 33.6 RDW 14.2 Plt Count 161 MPV 8.1 Absolute Neuts (auto) Neutrophils % Lymphocytes % Monocytes % Eosinophils % Basophils % Nucleated RBC % Anticoagulation Therapy Puncture Site Patient Temperature ABG pH ABG pCO2 ABG pO2 ABG HCO3 ABG O2 Sat (Measured) ABG O2 Content ABG Base Excess Darryl Test Patient On Oxygen O2 Delivery Device Oxygen Flow Rate Vent Mode Vent Rate Mechanical Rate PEEP Pressure Support Vent Sodium Potassium Chloride Carbon Dioxide Anion Gap BUN Creatinine Est GFR (CKD-EPI)AfAm Est GFR (CKD-EPI)NonAf POC Glucometer Random Glucose Calcium Phosphorus Magnesium Total Bilirubin AST ALT Alkaline Phosphatase Creatine Kinase Creatine Kinase Index CK-MB (CK-2) Troponin I < 0.02 Total Protein Albumin TSH Cancelled Opiates Screen Methadone Screen Barbiturate Screen Phencyclidine Screen Ur Amphetamines Screen MDMA (Ecstasy) Screen Benzodiazepines Screen Cocaine Screen U Marijuana (THC) Screen Alcohol, Quantitative 297.1 H 03/12/20 03/12/20 03/12/20 08:25 08:25 11:40 WBC RBC Hgb Hct MCV MCH MCHC RDW Plt Count MPV Absolute Neuts (auto) Neutrophils % Lymphocytes % Monocytes % Eosinophils % Basophils % Nucleated RBC % Anticoagulation Therapy Puncture Site Patient Temperature ABG pH ABG pCO2 ABG pO2 ABG HCO3 ABG O2 Sat (Measured) ABG O2 Content ABG Base Excess Darryl Test Patient On Oxygen O2 Delivery Device Oxygen Flow Rate Vent Mode Vent Rate Mechanical Rate PEEP Pressure Support Vent Sodium 140 Potassium 3.4 L Chloride 104 Carbon Dioxide 28 Anion Gap 8 BUN 8.5 Creatinine 0.7 Est GFR (CKD-EPI)AfAm 133.02 Est GFR (CKD-EPI)NonAf 114.77 POC Glucometer 95 Random Glucose 128 H Calcium 7.5 L Phosphorus 2.4 L Magnesium 1.7 L Total Bilirubin AST ALT Alkaline Phosphatase Creatine Kinase Creatine Kinase Index CK-MB (CK-2) Troponin I Total Protein Albumin TSH Opiates Screen Methadone Screen Barbiturate Screen Phencyclidine Screen Ur Amphetamines Screen MDMA (Ecstasy) Screen Benzodiazepines Screen Cocaine Screen U Marijuana (THC) Screen Alcohol, Quantitative 147.5 H 03/12/20 03/13/20 03/13/20 16:30 05:35 10:57 WBC RBC Hgb Hct MCV MCH MCHC RDW Plt Count MPV Absolute Neuts (auto) Neutrophils % Lymphocytes % Monocytes % Eosinophils % Basophils % Nucleated RBC % Anticoagulation Therapy No Result Required. Puncture Site Left brachial Patient Temperature No Result Required. ABG pH 7.512 H ABG pCO2 32.80 L ABG pO2 95.2 ABG HCO3 25.7 ABG O2 Sat (Measured) 97.9 ABG O2 Content No Result Required. ABG Base Excess 3.3 H Darryl Test No Result Required. Patient On Oxygen No O2 Delivery Device No Result Required. Oxygen Flow Rate No Result Required. Vent Mode No Result Required. Vent Rate No Result Required. Mechanical Rate No Result Required. PEEP No Result Required. Pressure Support Vent No Result Required. Sodium Potassium Chloride Carbon Dioxide Anion Gap BUN Creatinine Est GFR (CKD-EPI)AfAm Est GFR (CKD-EPI)NonAf POC Glucometer 91 98 Random Glucose Calcium Phosphorus Magnesium Total Bilirubin AST ALT Alkaline Phosphatase Creatine Kinase Creatine Kinase Index CK-MB (CK-2) Troponin I Total Protein Albumin TSH Opiates Screen Methadone Screen Barbiturate Screen Phencyclidine Screen Ur Amphetamines Screen MDMA (Ecstasy) Screen Benzodiazepines Screen Cocaine Screen U Marijuana (THC) Screen Alcohol, Quantitative 03/13/20 11:13 WBC RBC Hgb Hct MCV MCH MCHC RDW Plt Count MPV Absolute Neuts (auto) Neutrophils % Lymphocytes % Monocytes % Eosinophils % Basophils % Nucleated RBC % Anticoagulation Therapy Puncture Site Patient Temperature ABG pH ABG pCO2 ABG pO2 ABG HCO3 ABG O2 Sat (Measured) ABG O2 Content ABG Base Excess Darryl Test Patient On Oxygen O2 Delivery Device Oxygen Flow Rate Vent Mode Vent Rate Mechanical Rate PEEP Pressure Support Vent Sodium Potassium Chloride Carbon Dioxide Anion Gap BUN Creatinine Est GFR (CKD-EPI)AfAm Est GFR (CKD-EPI)NonAf POC Glucometer 86 Random Glucose Calcium Phosphorus Magnesium Total Bilirubin AST ALT Alkaline Phosphatase Creatine Kinase Creatine Kinase Index CK-MB (CK-2) Troponin I Total Protein Albumin TSH Opiates Screen Methadone Screen Barbiturate Screen Phencyclidine Screen Ur Amphetamines Screen MDMA (Ecstasy) Screen Benzodiazepines Screen Cocaine Screen U Marijuana (THC) Screen Alcohol, Quantitative Active Medications Generic Name Dose Route Start Last Admin Trade Name Freq PRN Reason Stop Dose Admin Aspirin 81 mg 03/12/20 10:00 03/13/20 10:11 Ecotrin - PO 81 mg DAILY JERICHO Administration Cyanocobalamin 100 mcg 03/12/20 10:00 03/13/20 10:11 Vitamin B12 - PO 100 mcg DAILY JERICHO Administration Enoxaparin Sodium 40 mg 03/12/20 10:00 03/13/20 10:14 Lovenox - SQ 40 mg DAILY JEIRCHO Administration Folic Acid 1 mg 03/12/20 10:00 03/13/20 10:11 Folic Acid - PO 1 mg DAILY JERICHO Administration Sodium Chloride 1,000 mls @ 83 mls/hr 03/11/20 16:30 03/12/20 17:15 Normal Saline - IV 83 mls/hr ASDIR JERICHO Administration Potassium Phosphate 30 mm/ 510 mls @ 62.5 mls/hr 03/13/20 09:30 03/13/20 11:39 Sodium Chloride IVPB 03/13/20 17:39 62.5 mls/hr ONCE ONE Administration Lorazepam 1 mg 03/13/20 05:00 03/13/20 11:04 Ativan - PO 03/13/20 23:01 1 mg 0500,1100,1700,2300 JERICHO Administration Lorazepam 1 mg 03/11/20 15:46 03/12/20 19:01 Ativan - PO 03/13/20 23:59 1 mg Q4H PRN Administration Symptoms of Withdrawal Lorazepam 0.5 mg 03/14/20 05:00 Ativan - PO 03/14/20 23:01 Q6H JERICHO Lorazepam 0.5 mg 03/14/20 00:00 Ativan - PO 03/15/20 00:00 Q4H PRN Symptoms of Withdrawal Lorazepam 0.5 mg 03/15/20 05:00 Ativan - PO 03/15/20 05:01 ONCE ONE Pantoprazole Sodium 40 mg 03/12/20 10:00 03/13/20 10:14 Protonix Iv IVPUSH 40 mg DAILY JERICHO Administration Thiamine HCl 100 mg 03/12/20 10:00 03/13/20 10:10 Vitamin B1 - PO 100 mg DAILY JERICHO Administration Vital Signs Temperature 98.8 F 03/13/20 10:00 Pulse Rate 86 03/13/20 10:00 Respiratory Rate 18 03/13/20 10:00 Blood Pressure 139/85 03/13/20 10:00 O2 Sat by Pulse Oximetry (%) 97 03/13/20 10:00 - History Source History Provided By: Medical Record - Alcohol/Substance Use Hx Alcohol Use: Yes Hx Substance Use: Yes CIWA Score - CIWA Score Nausea/Vomitin-Mild Nausea/No Vomiting Muscle Tremors: 5 Anxiety: 5 Agitation: 5 Paroxysmal Sweats: 2 Orientation: 0-Oriented Tacttile Disturbances: 1-Very Mild Itch/Numbness Auditory Disturbances: 0-None Visual Disturbances: 0-None Headache: 1-Very Mild CIWA-Ar Total Score: 20 Assessment Plan - Diagnosis (1) Alcohol dependence with uncomplicated withdrawal Status: Acute - Medication Detox Regimen/Protocol: Ativan (Pt on Ativan protocol. Rec: Psychiatry consult. Ethyl alcohol level as per Poison control)
--- NOTE | 2020-03-13 13:37 | PN ---
Physical Exam: SUBJECTIVE: Patient seen and examined at bedside this morning. No acute events overnight. Still noted some restlessness today. Patient denies any fevers, chills, chest pain, SOB, abdominal pain, diarrhea. OBJECTIVE: Vital Signs Temperature 98.8 F 03/13/20 10:00 Pulse Rate 86 03/13/20 10:00 Respiratory Rate 18 03/13/20 10:00 Blood Pressure 139/85 03/13/20 10:00 O2 Sat by Pulse Oximetry (%) 97 03/13/20 10:00 GENERAL: The patient is awake, alert, and fully oriented, in no acute distress. NECK: full range of motion, supple. LUNGS: Breath sounds equal, clear to auscultation bilaterally HEART: Regular rate and rhythm, S1, S2 ABDOMEN: Soft, nontender, nondistended, normoactive bowel sounds EXTREMITIES: 2+ pulses, warm, well-perfused, no edema. NEUROLOGICAL: Cranial nerves II through XII grossly intact. Normal speech PSYCH: Normal mood, normal affect. Cooperative. SKIN: Warm, dry, normal turgor Laboratory Results - last 24 hr 03/12/20 03/13/20 03/13/20 16:30 05:35 10:57 Anticoagulation Therapy No Result Required. Puncture Site Left brachial Patient Temperature No Result Required. ABG pH 7.512 H ABG pCO2 32.80 L ABG pO2 95.2 ABG HCO3 25.7 ABG O2 Sat (Measured) 97.9 ABG O2 Content No Result Required. ABG Base Excess 3.3 H Darryl Test No Result Required. Patient On Oxygen No O2 Delivery Device No Result Required. Oxygen Flow Rate No Result Required. Vent Mode No Result Required. Vent Rate No Result Required. Mechanical Rate No Result Required. PEEP No Result Required. Pressure Support Vent No Result Required. POC Glucometer 91 98 03/13/20 11:13 Anticoagulation Therapy Puncture Site Patient Temperature ABG pH ABG pCO2 ABG pO2 ABG HCO3 ABG O2 Sat (Measured) ABG O2 Content ABG Base Excess Darryl Test Patient On Oxygen O2 Delivery Device Oxygen Flow Rate Vent Mode Vent Rate Mechanical Rate PEEP Pressure Support Vent POC Glucometer 86 Active Medications Generic Name Dose Route Start Last Admin Trade Name Freq PRN Reason Stop Dose Admin Aspirin 81 mg 03/12/20 10:00 03/13/20 10:11 Ecotrin - PO 81 mg DAILY JERICHO Administration Cyanocobalamin 100 mcg 03/12/20 10:00 03/13/20 10:11 Vitamin B12 - PO 100 mcg DAILY JERICHO Administration Enoxaparin Sodium 40 mg 03/12/20 10:00 03/13/20 10:14 Lovenox - SQ 40 mg DAILY JERICHO Administration Folic Acid 1 mg 03/12/20 10:00 03/13/20 10:11 Folic Acid - PO 1 mg DAILY JERICHO Administration Sodium Chloride 1,000 mls @ 83 mls/hr 03/11/20 16:30 03/12/20 17:15 Normal Saline - IV 83 mls/hr ASDIR JERICHO Administration Potassium Phosphate 30 mm/ 510 mls @ 62.5 mls/hr 03/13/20 09:30 03/13/20 11:39 Sodium Chloride IVPB 03/13/20 17:39 62.5 mls/hr ONCE ONE Administration Lorazepam 1 mg 03/13/20 05:00 03/13/20 11:04 Ativan - PO 03/13/20 23:01 1 mg 0500,1100,1700,2300 JERICHO Administration Lorazepam 1 mg 03/11/20 15:46 03/12/20 19:01 Ativan - PO 03/13/20 23:59 1 mg Q4H PRN Administration Symptoms of Withdrawal Lorazepam 0.5 mg 03/14/20 05:00 Ativan - PO 03/14/20 23:01 Q6H JERICHO Lorazepam 0.5 mg 03/14/20 00:00 Ativan - PO 03/15/20 00:00 Q4H PRN Symptoms of Withdrawal Lorazepam 0.5 mg 03/15/20 05:00 Ativan - PO 03/15/20 05:01 ONCE ONE Pantoprazole Sodium 40 mg 03/12/20 10:00 03/13/20 10:14 Protonix Iv IVPUSH 40 mg DAILY JERICHO Administration Thiamine HCl 100 mg 03/12/20 10:00 03/13/20 10:10 Vitamin B1 - PO 100 mg DAILY JERICHO Administration ASSESSMENT/PLAN: Patient is a 44 year old male patient with past medical history of alcohol use disorder, polysubstance use, anxiety, depression, GERD, who presented to the ED with left sided chest pain radiating up his neck. #Chest pain, likely 2/2 cocaine use -EKG normal, troponin negative x2 -further work up no indicated at this time -consider stress echo if chest pain recurs -Cardiology (Dr. Choi) consulted. Recommendations appreciated. #Alcohol withdrawal -CIWA monitoring, currently 8 -On Ativan detox protocol -Continue Thiamine/folic acid/MV -Protonix daily -certified technician specialist (Dr. Perla) consulted. REcommendations appreciated #Suicidal ideation -continue 1:1 observation -psychiatry (Dr. Camarillo) consulted. -denies hallucinations, denies suicidal ideation at this time #Anxiety/Depression -Continue home Trazodone and Quetiapine #FEN -Not on any standing fluids -HypoK, HypoMg, HypoPhos, repleted -routine bmp monitoring -Regular diet #Prophylaxis -Lovenox 40mg sq daily #Disposition -full code Visit type - Emergency Visit Emergency Visit: Yes ED Registration Date: 03/11/20 Care time: The patient presented to the Emergency Department on the above date and was hospitalized for further evaluation of their emergent condition. - New Patient This patient is new to me today: Yes Date on this admission: 03/13/20 - Critical Care Critical Care patient: No ATTENDING PHYSICIAN STATEMENT I saw and evaluated the patient. I reviewed the resident's note and discussed the case with the resident. I agree with the resident's findings and plan as documented. SUBJECTIVE: OBJECTIVE: ASSESSMENT AND PLAN:
[2020-03-13] MEDS: QUEtiapine FUMARATE 100 MG TABLET (FP) PO SCH (15:22)
--- NOTE | 2020-03-13 15:54 | CON.PSY ---
Psychiatry Consult Chief Complaint: 44 cYera old male with a long History of Alcohol and substance abuse and DEpressive Disorder seen for Psych evaluation. Patient apparantly drank Hand Sanitisor for Alcohol. Denies any suicidal plans.. Wanted some Alcohol because he was feeling withdrawl sensations. Denies any Suicidal ideas or plans at this time. Symptoms: reports: Depressed Mood, Anxiety - Previous Psychiatric Treatment Outpatient: Less than 6 mos ago Inpatient: One prior admission - Previous Substance Abuse Treatment Outpatient: Less than 6 mos ago Inpatient: 2 or more prior admissions - Reason for Previous Treatment Reason for Previous Treatment: Major Depression, Alcohol Abuse, Marijuana - Current Medications Current Medications: Active Medications Aspirin (Ecotrin -) 81 mg PO DAILY [facility] Last Admin: 03/13/20 10:11 Dose: 81 mg Documented by: Cyanocobalamin (Vitamin B12 -) 100 mcg PO DAILY [facility] Last Admin: 03/13/20 10:11 Dose: 100 mcg Documented by: Enoxaparin Sodium (Lovenox -) 40 mg SQ DAILY [facility] Last Admin: 03/13/20 10:14 Dose: 40 mg Documented by: Folic Acid (Folic Acid -) 1 mg PO DAILY [facility] Last Admin: 03/13/20 10:11 Dose: 1 mg Documented by: Potassium Phosphate 30 mm/ (Sodium Chloride) 510 mls @ 62.5 mls/hr IVPB ONCE ONE Stop: 03/13/20 17:39 Last Admin: 03/13/20 11:39 Dose: 62.5 mls/hr Documented by: Lorazepam (Ativan -) 1 mg PO 0500,1100,1700,2300 [facility] Stop: 03/13/20 23:01 Last Admin: 03/13/20 11:04 Dose: 1 mg Documented by: Lorazepam (Ativan -) 1 mg PO Q4H PRN PRN Reason: Symptoms of Withdrawal Stop: 03/13/20 23:59 Last Admin: 03/12/20 19:01 Dose: 1 mg Documented by: Lorazepam (Ativan -) 0.5 mg PO Q6H [facility] Stop: 03/14/20 23:01 Lorazepam (Ativan -) 0.5 mg PO Q4H PRN PRN Reason: Symptoms of Withdrawal Stop: 03/15/20 00:00 Lorazepam (Ativan -) 0.5 mg PO ONCE ONE Stop: 03/15/20 05:01 Pantoprazole Sodium (Protonix Iv) 40 mg IVPUSH DAILY [facility] Last Admin: 03/13/20 10:14 Dose: 40 mg Documented by: Quetiapine Fumarate (Seroquel -) 100 mg PO DAILY [facility] Last Admin: 03/13/20 15:22 Dose: 100 mg Documented by: Thiamine HCl (Vitamin B1 -) 100 mg PO DAILY [facility] Last Admin: 03/13/20 10:10 Dose: 100 mg Documented by: Trazodone HCl (Desyrel -) 50 mg PO HS [facility] Zolpidem Tartrate (Ambien -) 10 mg PO HS PRN PRN Reason: INSOMNIA - Allergies Allergies: Allergies Allergy/AdvReac Type Severity Reaction Status Date / Time pollen extracts AdvReac Verified 03/11/20 08:10 - Current Living Status Usual Living Arrangement: With Significant Other - Current Mental Status Evaluation Appearance: Well Groomed Attitude: Cooperative - Affect Affect: Full Range Appropriateness: Appropriate to Content - Mood Mood: Anxious - Speech/Language Expressive: Coherent - Psychomotor Activity Psychomotor Activity: Normal - Thought Process Thought Process: Intact - Thought Content Hallucinations: Absent Delusions: Absent - Self Perception Self Perception: No Impairment - Cognition Attention: Alert Orientation: Time Memory, Immediate Recall: Intact Memory, Short Term: 3/3 Memory, Remote with Promptin/3 - Concentration Serial Sevens Intact: Yes Simple Calculations Intact: Yes - Abstraction Proverb Interpretation: Intact Judgement: Minimally Impaired - Insight Insight: Intact - Suicidal Ideation Suicidal Ideation: No - Homicidal Ideation Homicidal Ideation: No Assessment/Plan 1) d/c 1:1. 2) Continue with [facility] and Psych Meds. 3) will go to [facility] Alcohol Program [facility]. 4) D/c when medically stable.
--- NOTE | 2020-03-13 16:00 | PN ---
Teaching Attending Note Name of Resident: Laurence Cat ATTENDING PHYSICIAN STATEMENT I saw and evaluated the patient. I reviewed the resident's note and discussed the case with the resident. I agree with the resident's findings and plan as documented. 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 clinically stable, will need dispo to inpatient psychiatric facility. VSS. OBJECTIVE: GENERAL: The patient is awake, alert, and fully oriented, in no acute distress. NECK: full range of motion, supple. LUNGS: Breath sounds equal, clear to auscultation bilaterally HEART: Regular rate and rhythm, S1, S2 ABDOMEN: Soft, nontender, nondistended, normoactive bowel sounds EXTREMITIES: 2+ pulses, warm, well-perfused, no edema. NEUROLOGICAL: Cranial nerves II through XII grossly intact. Normal speech PSYCH: Normal mood, normal affect. Cooperative. SKIN: Warm, dry, normal turgor Vital Signs (72 hours) 03/11/20 03/11/20 03/11/20 08:08 08:35 14:02 Temperature 98.3 F 99.6 F Pulse Rate 91 H Pulse Rate [ 86 93 H Radial] Respiratory 20 18 20 Rate Blood Pressure 190/87 H Blood Pressure 149/89 100/56 L [Left Arm] O2 Sat by Pulse 94 L 97 96 Oximetry (%) 03/11/20 03/11/20 03/11/20 15:51 16:19 20:00 Temperature 98.7 F 98.5 F Pulse Rate 89 Pulse Rate [ 90 Radial] Respiratory 18 Rate Blood Pressure 135/85 Blood Pressure 127/76 [Left Arm] O2 Sat by Pulse 95 95 97 Oximetry (%) 03/12/20 03/12/20 03/12/20 02:19 06:00 09:00 Temperature 98.1 F Pulse Rate 77 83 Pulse Rate [ Radial] Respiratory 19 20 Rate Blood Pressure 117/62 121/71 Blood Pressure [Left Arm] O2 Sat by Pulse 99 98 Oximetry (%) 03/12/20 03/12/20 03/12/20 09:15 12:53 16:36 Temperature 98.5 F 98.3 F 98.5 F Pulse Rate 96 H 96 H 93 H Pulse Rate [ Radial] Respiratory 22 H 20 Rate Blood Pressure 155/88 142/83 156/79 Blood Pressure [Left Arm] O2 Sat by Pulse 98 99 99 Oximetry (%) 03/12/20 03/12/20 03/13/20 20:00 21:00 04:00 Temperature 98.2 F 98.1 F Pulse Rate 87 88 Pulse Rate [ Radial] Respiratory 16 16 16 Rate Blood Pressure 148/90 144/85 Blood Pressure [Left Arm] O2 Sat by Pulse 96 96 95 Oximetry (%) 03/13/20 03/13/20 03/13/20 09:00 10:00 14:00 Temperature 98.8 F 98.8 F Pulse Rate 86 83 Pulse Rate [ Radial] Respiratory 18 18 Rate Blood Pressure 139/85 141/85 Blood Pressure [Left Arm] O2 Sat by Pulse 97 97 96 Oximetry (%) Laboratory Results - last 24 hr 03/12/20 03/13/20 03/13/20 16:30 05:35 10:57 Anticoagulation Therapy No Result Required. Puncture Site Left brachial Patient Temperature No Result Required. ABG pH 7.512 H ABG pCO2 32.80 L ABG pO2 95.2 ABG HCO3 25.7 ABG O2 Sat (Measured) 97.9 ABG O2 Content No Result Required. ABG Base Excess 3.3 H Darryl Test No Result Required. Patient On Oxygen No O2 Delivery Device No Result Required. Oxygen Flow Rate No Result Required. Vent Mode No Result Required. Vent Rate No Result Required. Mechanical Rate No Result Required. PEEP No Result Required. Pressure Support Vent No Result Required. POC Glucometer 91 98 03/13/20 11:13 Anticoagulation Therapy Puncture Site Patient Temperature ABG pH ABG pCO2 ABG pO2 ABG HCO3 ABG O2 Sat (Measured) ABG O2 Content ABG Base Excess Darryl Test Patient On Oxygen O2 Delivery Device Oxygen Flow Rate Vent Mode Vent Rate Mechanical Rate PEEP Pressure Support Vent POC Glucometer 86 Home Medications Medication Instructions Recorded Zolpidem Tartrate [Ambien] 10 mg PO HS #30 tablet 09/08/15 Quetiapine Fumarate [Seroquel -] 100 mg PO DAILY 03/13/20 traZODone HCL [Desyrel -] 50 mg PO HS 03/13/20 Current Medications Generic Name Dose Route Start Last Admin Trade Name Freq PRN Reason Stop Dose Admin Aspirin 81 mg 03/12/20 10:00 03/13/20 10:11 Ecotrin - PO 81 mg DAILY JERICHO Administration Cyanocobalamin 100 mcg 03/12/20 10:00 03/13/20 10:11 Vitamin B12 - PO 100 mcg DAILY JERICHO Administration Enoxaparin Sodium 40 mg 03/12/20 10:00 03/13/20 10:14 Lovenox - SQ 40 mg DAILY JERICHO Administration Folic Acid 1 mg 03/12/20 10:00 03/13/20 10:11 Folic Acid - PO 1 mg DAILY JERICHO Administration Potassium Phosphate 30 mm/ 510 mls @ 62.5 mls/hr 03/13/20 09:30 03/13/20 11:39 Sodium Chloride IVPB 03/13/20 17:39 62.5 mls/hr ONCE ONE Administration Lorazepam 1 mg 03/13/20 05:00 03/13/20 11:04 Ativan - PO 03/13/20 23:01 1 mg 0500,1100,1700,2300 JERICHO Administration Lorazepam 1 mg 03/11/20 15:46 03/12/20 19:01 Ativan - PO 03/13/20 23:59 1 mg Q4H PRN Administration Symptoms of Withdrawal Lorazepam 0.5 mg 03/14/20 05:00 Ativan - PO 03/14/20 23:01 Q6H JERICHO Lorazepam 0.5 mg 03/14/20 00:00 Ativan - PO 03/15/20 00:00 Q4H PRN Symptoms of Withdrawal Lorazepam 0.5 mg 03/15/20 05:00 Ativan - PO 03/15/20 05:01 ONCE ONE Pantoprazole Sodium 40 mg 03/12/20 10:00 03/13/20 10:14 Protonix Iv IVPUSH 40 mg DAILY JERICHO Administration Quetiapine Fumarate 100 mg 03/13/20 14:15 03/13/20 15:22 Seroquel - PO 100 mg DAILY JERICHO Administration Thiamine HCl 100 mg 03/12/20 10:00 03/13/20 10:10 Vitamin B1 - PO 100 mg DAILY JERICHO Administration Trazodone HCl 50 mg 03/13/20 22:00 Desyrel - PO HS JERICHO Zolpidem Tartrate 10 mg 03/13/20 14:07 Ambien - PO HS PRN INSOMNIA ASSESSMENT AND PLAN: 44 M Cocaine induced chest pain PSA Cocaine abuse THC abuse Etoh abuse 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
[2020-03-13] MEDS: traZODone HCL 100 MG TABLET (FP) PO SCH (21:44)
[2020-03-13] MEDS: ZOLPIDEM TARTRATE 5 MG TABLET PO PRN (22:37)
[2020-03-14] MEDS ORDERED: LORazepam 0.5 MG TABLET PO PRN
[2020-03-14] MEDS: LORazepam 0.5 MG TABLET PO SCH ×4 (06:28→22:32)
[2020-03-14 06:48] LABS: BASO % 0.5 % (0-2.0); EOS % 1.4 % (0-4.5); HEMATOCRIT 43.1 % (35.4-49); HEMOGLOBIN 14.6 GM/dL (11.7-16.9); MCH 30.8 pg (25.7-33.7); MCHC 33.8 g/dl (32.0-35.9); MEAN CELL VOLUME 91.3 fl (80-96); MEAN PLT VOLUME 8.5 fl (7.5-11.1); MONO % 7.4 % (3.8-10.2); NEUT % 46.7 % (42.8-82.8); PLATELET COUNT 157 K/MM3 (134-434); RBC 4.72 M/mm3 (4.00-5.60); RDW 14.2 % (11.9-15.9); WHITE BLOOD COUNT 3.6 K/mm3 (4.0-10.0)
[2020-03-14 07:28] LABS: ALBUMIN 3.5 g/dl (3.4-5.0); BILIRUBIN,TOTAL 0.5 mg/dL (0.2-1); BLOOD UREA NITROGEN 8.7 mg/dL (7-18); CALCIUM 8.3 mg/dL (8.5-10.1); CREATININE 0.8 mg/dL (0.55-1.3); MAGNESIUM 2.2 mg/dL (1.8-2.4); PHOSPHOROUS 4.8 mg/dL (2.5-4.9); POTASSIUM 3.4 mmol/L (3.5-5.1); TOT PROT 7.5 g/dl (6.4-8.2)
[2020-03-14] MEDS ORDERED: POTASSIUM CHLORIDE TABS 20 MEQ TABLET.ER (FP) PO ONE ×2 (08:13→13:00)
[2020-03-14] MEDS ORDERED: PT OWN MED DRAWER 7, Y5N ONE (08:43)
[2020-03-14] MEDS: THIAMINE HCL 100 MG TABLET (FP) PO SCH (09:05)
[2020-03-14] MEDS: QUEtiapine FUMARATE 100 MG TABLET (FP) PO SCH (09:06)
[2020-03-14] MEDS: ASPIRIN COATED 81 MG TABLET.EC PO SCH (09:06)
[2020-03-14] MEDS: FOLIC ACID 1 MG TABLET (FP) PO SCH (09:06)
[2020-03-14] MEDS: ENOXAPARIN NA (PORCINE) 40 MG/0.4 ML DISP.SYRIN SQ SCH (09:06)
[2020-03-14] MEDS: PANTOPRAZOLE SODIUM 40 MG VIAL IVPUSH SCH (09:06)
[2020-03-14] MEDS: CYANOCOBALAMIN (VITAMIN B-12) 100 MCG TABLET PO SCH (09:17)
--- NOTE | 2020-03-14 12:08 | PN ---
Teaching Attending Note Name of Resident: Laurence Cat ATTENDING PHYSICIAN STATEMENT I saw and evaluated the patient. I reviewed the resident's note and discussed the case with the resident. I agree with the resident's findings and plan as documented. SUBJECTIVE: pt seen and examined at bedside, denies complains OBJECTIVE: Last Vital Signs Temp Pulse Resp BP Pulse Ox 98.1 F 71 18 144/90 99 03/14/20 06:00 03/14/20 06:00 03/14/20 06:00 03/14/20 06:00 03/14/20 06:00 GENERAL: Awake, alert, and fully oriented, in no acute distress. HEENT: AT/NC, PERRLA, neck supple LUNGS: Breath sounds equal, clear to auscultation bilaterally. No wheezes, and no crackles. No accessory muscle use. HEART: Regular rate and rhythm, normal S1 and S2 without murmur, rub or gallop. ABDOMEN: Soft, nontender, not distended, normoactive bowel sounds, no guarding, no rebound, no masses. No hepatomegaly or splenomegaly. MUSCULOSKELETAL: Normal range of motion at all joints. No bony deformities or tenderness. No CVA tenderness. UPPER EXTREMITIES: 2+ pulses, warm, well-perfused. No cyanosis. No clubbing. Cap refill <2 seconds. No peripheral edema. LOWER EXTREMITIES: 2+ pulses, warm, well-perfused. No calf tenderness. No peripheral edema. NEUROLOGICAL: Cranial nerves II-XII intact. Normal speech. Normal gait. PSYCHIATRIC: Cooperative. Good eye contact. Appropriate mood and affect. SKIN: Warm, dry, normal turgor, no rashes or lesions noted. CBCD WBC 3.6 K/mm3 (4.0-10.0) L 03/14/20 06:00 RBC 4.72 M/mm3 (4.00-5.60) 03/14/20 06:00 Hgb 14.6 GM/dL (11.7-16.9) 03/14/20 06:00 Hct 43.1 % (35.4-49) 03/14/20 06:00 MCV 91.3 fl (80-96) 03/14/20 06:00 MCHC 33.8 g/dl (32.0-35.9) 03/14/20 06:00 RDW 14.2 % (11.9-15.9) 03/14/20 06:00 Plt Count 157 K/MM3 (134-434) 03/14/20 06:00 MPV 8.5 fl (7.5-11.1) 03/14/20 06:00 CMP Sodium 143 mmol/L (136-145) 03/14/20 06:00 Potassium 3.4 mmol/L (3.5-5.1) L 03/14/20 06:00 Chloride 108 mmol/L (98-107) H 03/14/20 06:00 Carbon Dioxide 23 mmol/L (21-32) 03/14/20 06:00 Anion Gap 12 MMOL/L (8-16) 03/14/20 06:00 BUN 8.7 mg/dL (7-18) 03/14/20 06:00 Creatinine 0.8 mg/dL (0.55-1.3) 03/14/20 06:00 Calcium 8.3 mg/dL (8.5-10.1) L 03/14/20 06:00 Total Bilirubin 0.5 mg/dL (0.2-1) 03/14/20 06:00 AST 55 U/L (15-37) H 03/14/20 06:00 ALT 52 U/L (13-61) 03/14/20 06:00 Alkaline Phosphatase 100 U/L (45-117) 03/14/20 06:00 Total Protein 7.5 g/dl (6.4-8.2) 03/14/20 06:00 Albumin 3.5 g/dl (3.4-5.0) 03/14/20 06:00 ASSESSMENT AND PLAN: 44 M with polysubstance abuse, depression, admitted for CP s/p cocaine, 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
--- NOTE | 2020-03-14 12:44 | PN ---
Physical Exam: SUBJECTIVE: Patient seen and examined. No acute events overnight. Patient more calm today, denies fevers, chills, headache, dizziness, chest pain, sOB, abdominal pain, nausea, vomiting. OBJECTIVE: Vital Signs Temperature 99.2 F 03/14/20 10:00 Pulse Rate 96 H 03/14/20 10:00 Respiratory Rate 18 03/14/20 10:00 Blood Pressure 135/82 03/14/20 10:00 O2 Sat by Pulse Oximetry (%) 96 03/14/20 10:00 GENERAL: The patient is awake, alert, and fully oriented, in no acute distress. NECK: full range of motion, supple. LUNGS: Breath sounds equal, clear to auscultation bilaterally HEART: Regular rate and rhythm, S1, S2 ABDOMEN: Soft, nontender, nondistended, normoactive bowel sounds EXTREMITIES: 2+ pulses, warm, well-perfused, no edema. NEUROLOGICAL: Cranial nerves II through XII grossly intact. Normal speech PSYCH: Normal mood, normal affect. Cooperative. SKIN: Warm, dry, normal turgor Laboratory Results - last 24 hr 03/11/20 03/14/20 03/14/20 14:55 06:00 06:00 WBC 3.6 L RBC 4.72 Hgb 14.6 Hct 43.1 MCV 91.3 MCH 30.8 MCHC 33.8 RDW 14.2 Plt Count 157 MPV 8.5 Absolute Neuts (auto) 1.7 Neutrophils % 46.7 Lymphocytes % 44.0 H Monocytes % 7.4 Eosinophils % 1.4 D Basophils % 0.5 Nucleated RBC % 0 Sodium 143 Potassium 3.4 L Chloride 108 H Carbon Dioxide 23 Anion Gap 12 BUN 8.7 Creatinine 0.8 Est GFR (CKD-EPI)AfAm 125.92 Est GFR (CKD-EPI)NonAf 108.65 POC Glucometer Random Glucose 107 H Calcium 8.3 L Phosphorus 4.8 Magnesium 2.2 Total Bilirubin 0.5 AST 55 H ALT 52 Alkaline Phosphatase 100 Total Protein 7.5 Albumin 3.5 COVID-19 ([facility]) Not detected 03/14/20 03/14/20 06:32 11:45 WBC RBC Hgb Hct MCV MCH MCHC RDW Plt Count MPV Absolute Neuts (auto) Neutrophils % Lymphocytes % Monocytes % Eosinophils % Basophils % Nucleated RBC % Sodium Potassium Chloride Carbon Dioxide Anion Gap BUN Creatinine Est GFR (CKD-EPI)AfAm Est GFR (CKD-EPI)NonAf POC Glucometer 103 112 Random Glucose Calcium Phosphorus Magnesium Total Bilirubin AST ALT Alkaline Phosphatase Total Protein Albumin COVID-19 ([facility]) Active Medications Generic Name Dose Route Start Last Admin Trade Name Freq PRN Reason Stop Dose Admin Aspirin 81 mg 03/12/20 10:00 03/14/20 09:06 Ecotrin - PO 81 mg DAILY JERICHO Administration Cyanocobalamin 100 mcg 03/12/20 10:00 03/14/20 09:17 Vitamin B12 - PO 100 mcg DAILY JERICHO Administration Enoxaparin Sodium 40 mg 03/12/20 10:00 03/14/20 09:06 Lovenox - SQ 40 mg DAILY JERICHO Administration Folic Acid 1 mg 03/12/20 10:00 03/14/20 09:06 Folic Acid - PO 1 mg DAILY JERICHO Administration Lorazepam 0.5 mg 03/14/20 05:00 03/14/20 11:47 Ativan - PO 03/14/20 23:01 0.5 mg Q6H JERICHO Administration Lorazepam 0.5 mg 03/14/20 00:00 Ativan - PO 03/15/20 00:00 Q4H PRN Symptoms of Withdrawal Lorazepam 0.5 mg 03/15/20 05:00 Ativan - PO 03/15/20 05:01 ONCE ONE Pantoprazole Sodium 40 mg 03/12/20 10:00 03/14/20 09:06 Protonix Iv IVPUSH 40 mg DAILY JERICHO Administration Potassium Chloride 40 meq 03/14/20 13:00 K-Dur - PO 03/14/20 13:01 ONCE ONE Quetiapine Fumarate 100 mg 03/13/20 14:15 03/14/20 09:06 Seroquel - PO 100 mg DAILY JERICHO Administration Thiamine HCl 100 mg 03/12/20 10:00 03/14/20 09:05 Vitamin B1 - PO 100 mg DAILY JERICHO Administration Trazodone HCl 50 mg 03/13/20 22:00 03/13/20 21:44 Desyrel - PO 50 mg HS JERICHO Administration Zolpidem Tartrate 10 mg 03/13/20 14:07 03/13/20 22:37 Ambien - PO 10 mg HS PRN Administration INSOMNIA ASSESSMENT/PLAN: Patient is a 44 year old male patient with past medical history of alcohol use disorder, polysubstance use, anxiety, depression, GERD, who presented to the ED with left sided chest pain radiating up his neck. #Chest pain, likely 2/2 cocaine use -EKG normal, troponin negative x2 -further work up not indicated at this time -Cardiology (Dr. Choi) consulted. Recommendations appreciated. #Alcohol withdrawal -CIWA monitoring, 3 -On Ativan detox protocol, to complete last dose tomorrow morning -Continue Thiamine/folic acid/MV -Protonix daily -counterintelligence/humint specialist (Dr. Perla) consulted. REcommendations appreciated #Suicidal ideation -psychiatry (Dr. Camarillo) consulted. -denies hallucinations, denies suicidal ideation at this time -d/c 1:1. -Continue with Current Detox and Psych Meds. -will go to [facility] Alcohol Program in the [place]. -D/c when medically stable. #Anxiety/Depression -Continue home Trazodone and Quetiapine #FEN -Not on any standing fluids -routine bmp monitoring -Regular diet #Prophylaxis -Lovenox 40mg sq daily #Disposition -full code Visit type - Emergency Visit Emergency Visit: Yes ED Registration Date: 03/11/20 Care time: The patient presented to the Emergency Department on the above date and was hospitalized for further evaluation of their emergent condition. - New Patient This patient is new to me today: No - Critical Care Critical Care patient: No ATTENDING PHYSICIAN STATEMENT I saw and evaluated the patient. I reviewed the resident's note and discussed the case with the resident. I agree with the resident's findings and plan as documented. SUBJECTIVE: OBJECTIVE: ASSESSMENT AND PLAN:
--- NOTE | 2020-03-14 12:54 | PN ---
Progress Note (short form) - Note Progress Note: s: no cp sob palps dizzy Current Medications Generic Name Dose Route Start Last Admin Trade Name Freq PRN Reason Stop Dose Admin Aspirin 81 mg 03/12/20 10:00 03/14/20 09:06 Ecotrin - PO 81 mg DAILY JERICHO Administration Cyanocobalamin 100 mcg 03/12/20 10:00 03/14/20 09:17 Vitamin B12 - PO 100 mcg DAILY JERICHO Administration Enoxaparin Sodium 40 mg 03/12/20 10:00 03/14/20 09:06 Lovenox - SQ 40 mg DAILY JERICHO Administration Folic Acid 1 mg 03/12/20 10:00 03/14/20 09:06 Folic Acid - PO 1 mg DAILY JERICHO Administration Lorazepam 0.5 mg 03/14/20 05:00 03/14/20 11:47 Ativan - PO 03/14/20 23:01 0.5 mg Q6H JERICHO Administration Lorazepam 0.5 mg 03/14/20 00:00 Ativan - PO 03/15/20 00:00 Q4H PRN Symptoms of Withdrawal Lorazepam 0.5 mg 03/15/20 05:00 Ativan - PO 03/15/20 05:01 ONCE ONE Pantoprazole Sodium 40 mg 03/12/20 10:00 03/14/20 09:06 Protonix Iv IVPUSH 40 mg DAILY JERICHO Administration Potassium Chloride 40 meq 03/14/20 13:00 K-Dur - PO 03/14/20 13:01 ONCE ONE Quetiapine Fumarate 100 mg 03/13/20 14:15 03/14/20 09:06 Seroquel - PO 100 mg DAILY JERICHO Administration Thiamine HCl 100 mg 03/12/20 10:00 03/14/20 09:05 Vitamin B1 - PO 100 mg DAILY JERICHO Administration Trazodone HCl 50 mg 03/13/20 22:00 03/13/20 21:44 Desyrel - PO 50 mg HS JERICHO Administration Zolpidem Tartrate 10 mg 03/13/20 14:07 03/13/20 22:37 Ambien - PO 10 mg HS PRN Administration INSOMNIA Vital Signs Period Temp Pulse Resp BP Sys/[place] Pulse Ox Last 24 Hr 98.0 F-99.2 F 71-99 18-18 112-144/82-90 96-99 Constitutional: Yes: Well Nourished, No Distress Eyes: No: Sclera Icterus Respiratory: Yes: CTA Bilaterally. No: Accessory Muscle Use, Rales, Wheezes Gastrointestinal: Yes: Normal Bowel Sounds. No: Distention, Hepatomegaly, Palpable Mass, Tenderness Cardiovascular: Yes: Regular Rate and Rhythm JVD: No Carotid Bruit: No PMI: Non-Displaced Heart Sounds: Yes: S1, S2. No: Gallop Murmur: No: Systolic Murmur, Diastolic Murmur Extremities: No: Cool, Cyanosis Edema: No Peripheral Pulses: 2+ Left Carotid, 2+ Right Carotid, 2+ Left Doralis Pedis, 2+ Right Dorsalis Pedis Integumentary: No: Jaundice Neurological: Yes: Alert, Oriented (x3) Psychiatric: No: Agitated Assessment/Plan ECG: NSR, WNL CXR: clear lungs/pleura, normal heart and mediastinal silhouette chest pain, in setting of cocaine abuse: -ECG normal, trop neg. not c/w ACS or coronary spasm - resolved -further w/u not indicated at this time, consider stress echo if CP recurs HTN: -initially elevated in setting of cocaine abuse and marked anxiety about his chest pain -improved quickly -observe trend hematemesis: -per hospitalist
[2020-03-14] MEDS: traZODone HCL 100 MG TABLET (FP) PO SCH (22:30)
[2020-03-14] MEDS: ZOLPIDEM TARTRATE 5 MG TABLET PO PRN (22:30)
[2020-03-15] MEDS ORDERED: LORazepam 0.5 MG TABLET PO ONE (05:00)
[2020-03-15 08:09] LABS: BLOOD UREA NITROGEN 11.6 mg/dL (7-18); CALCIUM 8.7 mg/dL (8.5-10.1); CREATININE 0.8 mg/dL (0.55-1.3); MAGNESIUM 1.9 mg/dL (1.8-2.4); PHOSPHOROUS 3.4 mg/dL (2.5-4.9); POTASSIUM 4.3 mmol/L (3.5-5.1)
[2020-03-15] MEDS ORDERED: PT OWN MED DRAWER 7, Y5N ONE (09:17)
--- NOTE | 2020-03-15 09:24 | PN ---
Teaching Attending Note Name of Resident: Laurence Cat ATTENDING PHYSICIAN STATEMENT I saw and evaluated the patient. I reviewed the resident's note and discussed the case with the resident. I agree with the resident's findings and plan as documented. SUBJECTIVE: seen and examined at bedside, no complains OBJECTIVE: Last Vital Signs Temp Pulse Resp BP Pulse Ox 98.2 F 70 20 130/78 98 03/15/20 06:00 03/15/20 06:00 03/15/20 06:00 03/15/20 06:00 03/15/20 06:00 GENERAL: Awake, alert, and fully oriented, in no acute distress. HEAD: Normal with no signs of trauma. EYES: Pupils equal, round and reactive to light, sclera anicteric, conjunctiva clear. LUNGS: Breath sounds equal, clear to auscultation bilaterally. No wheezes, and no crackles. No accessory muscle use. HEART: Regular rate and rhythm, normal S1 and S2 ABDOMEN: Soft, nontender, not distended MUSCULOSKELETAL: Normal range of motion at all joints. No bony deformities or tenderness. No CVA tenderness. UPPER EXTREMITIES: 2+ pulses, warm, well-perfused. No cyanosis. No clubbing. No peripheral edema. LOWER EXTREMITIES: 2+ pulses, warm, well-perfused. No calf tenderness. No peripheral edema. NEUROLOGICAL: Cranial nerves II-XII intact. Normal speech. CBCD WBC 3.6 K/mm3 (4.0-10.0) L 03/14/20 06:00 RBC 4.72 M/mm3 (4.00-5.60) 03/14/20 06:00 Hgb 14.6 GM/dL (11.7-16.9) 03/14/20 06:00 Hct 43.1 % (35.4-49) 03/14/20 06:00 MCV 91.3 fl (80-96) 03/14/20 06:00 MCHC 33.8 g/dl (32.0-35.9) 03/14/20 06:00 RDW 14.2 % (11.9-15.9) 03/14/20 06:00 Plt Count 157 K/MM3 (134-434) 03/14/20 06:00 MPV 8.5 fl (7.5-11.1) 03/14/20 06:00 CMP Sodium 139 mmol/L (136-145) 03/15/20 07:15 Potassium 4.3 mmol/L (3.5-5.1) 03/15/20 07:15 Chloride 105 mmol/L (98-107) 03/15/20 07:15 Carbon Dioxide 29 mmol/L (21-32) 03/15/20 07:15 Anion Gap 6 MMOL/L (8-16) L 03/15/20 07:15 BUN 11.6 mg/dL (7-18) 03/15/20 07:15 Creatinine 0.8 mg/dL (0.55-1.3) 03/15/20 07:15 Calcium 8.7 mg/dL (8.5-10.1) 03/15/20 07:15 Total Bilirubin 0.5 mg/dL (0.2-1) 03/14/20 06:00 AST 55 U/L (15-37) H 03/14/20 06:00 ALT 52 U/L (13-61) 03/14/20 06:00 Alkaline Phosphatase 100 U/L (45-117) 03/14/20 06:00 Total Protein 7.5 g/dl (6.4-8.2) 03/14/20 06:00 Albumin 3.5 g/dl (3.4-5.0) 03/14/20 06:00 ASSESSMENT AND PLAN: 44 M with polysubstance abuse, depression, admitted for CP s/p cocaine, 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
[2020-03-15] MEDS: FOLIC ACID 1 MG TABLET (FP) PO SCH (09:28)
[2020-03-15] MEDS: ASPIRIN COATED 81 MG TABLET.EC PO SCH (09:28)
[2020-03-15] MEDS: CYANOCOBALAMIN (VITAMIN B-12) 100 MCG TABLET PO SCH (09:28)
[2020-03-15] MEDS: QUEtiapine FUMARATE 100 MG TABLET (FP) PO SCH (09:28)
[2020-03-15] MEDS: ENOXAPARIN NA (PORCINE) 40 MG/0.4 ML DISP.SYRIN SQ SCH (09:28)
[2020-03-15] MEDS: THIAMINE HCL 100 MG TABLET (FP) PO SCH (09:29)
[2020-03-15] MEDS: PANTOPRAZOLE SODIUM 40 MG VIAL IVPUSH SCH (09:29)
[2020-03-15 09:56] VITALS: BP 129/58; PULSE 83; TEMP 98.6
--- NOTE | 2020-03-15 12:16 | DS ---
Physical Exam: SUBJECTIVE: Patient seen and examined OBJECTIVE: Vital Signs Temperature 98.6 F 03/15/20 09:11 Pulse Rate 83 03/15/20 09:11 Respiratory Rate 18 03/15/20 09:11 Blood Pressure 129/58 L 03/15/20 09:11 O2 Sat by Pulse Oximetry (%) 98 03/15/20 09:11 PHYSICAL EXAM GENERAL: The patient is awake, alert, and fully oriented, in no acute distress. NECK: full range of motion, supple. LUNGS: Breath sounds equal, clear to auscultation bilaterally HEART: Regular rate and rhythm, S1, S2 ABDOMEN: Soft, nontender, nondistended, normoactive bowel sounds EXTREMITIES: 2+ pulses, warm, well-perfused, no edema. NEUROLOGICAL: Cranial nerves II through XII grossly intact. Normal speech PSYCH: Normal mood, normal affect. Cooperative. SKIN: Warm, dry, normal turgor LABS Laboratory Results - last 24 hr 03/15/20 07:15 Sodium 139 Potassium 4.3 Chloride 105 Carbon Dioxide 29 Anion Gap 6 L BUN 11.6 Creatinine 0.8 Est GFR (CKD-EPI)AfAm 125.92 Est GFR (CKD-EPI)NonAf 108.65 Random Glucose 109 H Calcium 8.7 Phosphorus 3.4 Magnesium 1.9 HOSPITAL COURSE: Date of Admission:03/11/20 Date of Discharge: 03/15/20 Patient is a 44 year old male patient with past medical history of alcohol use disorder, polysubstance use, anxiety, depression, GERD, who presented to the ED with left sided chest pain radiating up his neck. #Chest pain, likely 2/2 cocaine use -EKG normal, troponin negative x2 -further work up not indicated at this time -Cardiology (Dr. Choi) consulted. Recommendations appreciated. #Alcohol withdrawal -Ativan detox protocol completed -Thiamine/folic acid/MV -Protonix daily -research specialist (Dr. Perla) consulted. REcommendations appreciated #Suicidal ideation -psychiatry (Dr. Camarillo) consulted. -denies hallucinations, denies suicidal ideation at this time -d/c 1:1. -Continue with Current Detox and Psych Meds. -will go to [facility] Program in the [place]. -D/c when medically stable. #Anxiety/Depression -Continue home Trazodone and Quetiapine Minutes to complete discharge: 36 Discharge Summary Problems reviewed: Yes Reason For Visit: COCAINE ABUSE; CHEST PAIN Condition: Improved - Instructions Diet, Activity, Other Instructions: Your visit You were admitted to the hospital because you had chest pain. This was likely because of taking too much cocaine. You were evaluated by cardiology. You were also started on detox for drinking too much alcohol. MEdications Please continue your home medications Follow up Please follow up with your primary care doctor in 1 week. Additional info Please call 911 or go to the ED if with any worsening fevers, chills, headache, dizziness, chest, pain, shortness of breath, belly pain or any new concerns noted. [place] [facility] [place] [facility] [place] [[place]] Dwain Choi MD [Staff Physician] - Disposition: HOME - Home Medications Comprehensive Discharge Medication List: Ambulatory Orders Zolpidem Tartrate [Ambien] 10 mg PO HS #30 tablet 09/08/15 Aspirin Coated [Ecotrin -] 81 mg PO DAILY tablet.ec 03/13/20 Cyanocobalamin [Vitamin B12 -] 100 mcg PO DAILY tablet 03/13/20 Folic Acid - 1 mg PO DAILY tablet 03/13/20 Quetiapine Fumarate [Seroquel -] 100 mg PO DAILY 03/13/20 Thiamine HCl [Vitamin B1 -] 100 mg PO DAILY tablet 03/13/20 traZODone HCL [Desyrel -] 50 mg PO HS 03/13/20 This patient is new to me today: No Emergency Visit: Yes ED Registration Date: 03/11/20 Care time: The patient presented to the Emergency Department on the above date and was hospitalized for further evaluation of their emergent condition. Critical Care patient: No - Discharge Referral Referred to [facility] No ATTENDING PHYSICIAN STATEMENT I saw and evaluated the patient. I reviewed the resident's note and discussed the case with the resident. I agree with the resident's findings and plan as documented. SUBJECTIVE: OBJECTIVE: ASSESSMENT AND PLAN:
== END 2020-03-15 10:06 | disposition home or self-care (01) ==
LOC: JER 08:06 → JERBED 11:19 → INTOOBSV 16:19 → OBSVTOIN 16:19 → J4S 16:51
PROVIDERS: ADMIT Student in an Organized Health Care Education/Training Program; ATTEND Student in an Organized Health Care Education/Training Program
PROC: 3E023GC Introduction of Other Therapeutic Substance into Muscle, Percutaneous Approach (ICD-10-PCS; principal; 2020-03-11)
PROC: 3E033GC Introduction of Other Therapeutic Substance into Peripheral Vein, Percutaneous Approach (ICD-10-PCS; 2020-03-11)
PROC: 3E0337Z Introduction of Electrolytic and Water Balance Substance into Peripheral Vein, Percutaneous Approach (ICD-10-PCS; 2020-03-11)
DX: F14.10 Cocaine abuse, uncomplicated (principal); F10.10 Alcohol abuse, uncomplicated; F41.8 Other specified anxiety disorders; R25.1 Tremor, unspecified; L29.9 Pruritus, unspecified; J30.1 Allergic rhinitis due to pollen; E66.9 Obesity, unspecified; Z68.32 Body mass index [BMI] 32.0-32.9, adult; R45.1 Restlessness and agitation; R61 Generalized hyperhidrosis; Z72.0 Tobacco use; K21.9 Gastro-esophageal reflux disease without esophagitis; Z29.9 Encounter for prophylactic measures, unspecified
CPT/HCPCS: 36415; 36600; 71045-TC-FY; 80048; 80053; 80307; 82550; 82553; 82803; 82962; 83735; 84100; 84484; 85025; 85027; 93005; 93010; 96361; 96365; 96367; 96372; 96375; 99285-25; G0378; G0480; U0003

== ENCOUNTER 2020-03-26 17:52 | Inpatient (IN) | payer OTHER ==
--- NOTE | 2020-03-26 18:24 | PDOC ---
History of Present Illness <Roosevelt Whiteside - Last Filed: 03/26/20 20:59> - History of Present Illness Initial Comments: Andrew Vieira is a 44 y/o male with PMH significant for alcohol use disorder, cocaine use disorder, depression, anxiety, GERD, BIBEMS today for alcohol use and chest pain. Per EMS, he called 911 to his home because he had been drinking too much and had chest pain and was requesting to go to the hospital. Per EMS pt had pinpoint pupils but that was not seen on presentation. At bedside, pt reports that he never had chest pain but has mild periumbilical abdominal pain. Also states that he wants to go to detox. Last drink was 2pm this afternoon. Reports drinking 1/5th of vodka and multiple beers. States that he has been drinking every day since his discharge from this hospital a couple of weeks ago and smoking marijuana, but denies cocaine, heroin, or other drug use. Pt denies any other complaints at this time. No headache/dizziness/chest pain/shortness of breath/leg swelling/diarrhea/dysuria/back pain. <Jelani Desai - Last Filed: 03/27/20 18:45> - General Chief Complaint: Chest Pain Stated Complaint: CHEST PAIN,INTOX Time Seen by Provider: 03/26/20 17:57 Past History <Roosevelt Whiteside - Last Filed: 03/26/20 20:59> - Medical History Anemia: No Asthma: No Cancer: No Cardiac Disorders: No CVA: No COPD: No CHF: No Dementia: No Diabetes: No GI Disorders: Yes (GERD) Disorders: No HTN: No Hypercholesterolemia: No Kidney Stones: No Liver Disease: No Seizures: No Thyroid Disease: No - Surgical History Abdominal Surgery: No Appendectomy: No Cardiac Surgery: No Cholecystectomy: No Lung Surgery: No Neurologic Surgery: No Orthopedic Surgery: Yes (R mandible fx) - Reproductive History Testicular Surgery: No - Psycho-Social/Smoking History Smoking History: Never smoked Have you smoked in the past 12 months: No Number of Cigarettes Smoked Daily: 3 Cigars Per Day: 0 Information on smoking cessation initiated: No 'Breaking Loose' booklet given: 03/10/20 - Substance Abuse Hx (Audit-C & DAST Scrn) How often the patient has a drink containing alcohol: 4 0r more times/wk Number of drinks the patient has on a typical day: 5 or 6 Score: In Men: 4 or > Positive; In Women: 3 or > Positive: 6 Screen Result (Pos requires Nsg. Audit-10AR): Positive In the last yr the pt used illegal drug/Rx for NonMed reason: Yes Score: Yes response is considered Positive: 1 Screen Result (Positive result requires Nsg. DAST-10): Positive <Jelani Desai - Last Filed: 03/27/20 18:45> - Medical History Allergies/Adverse Reactions: Allergies Allergy/AdvReac Type Severity Reaction Status Date / Time No Known Drug Allergies Allergy Verified 03/26/20 19:15 pollen extracts AdvReac Verified 03/26/20 18:13 Home Medications: Ambulatory Orders Zolpidem Tartrate [Ambien] 10 mg PO HS #30 tablet 09/08/15 Aspirin Coated [Ecotrin -] 81 mg PO DAILY tablet.ec 03/13/20 Cyanocobalamin [Vitamin B12 -] 100 mcg PO DAILY tablet 03/13/20 Folic Acid - 1 mg PO DAILY tablet 03/13/20 Quetiapine Fumarate [Seroquel -] 100 mg PO DAILY 03/13/20 Thiamine HCl [Vitamin B1 -] 100 mg PO DAILY tablet 03/13/20 traZODone HCL [Desyrel -] 50 mg PO HS 03/13/20 Review of Systems - Review of Systems Comments:: GENERAL/CONSTITUTIONAL: No fever or chills. No weakness._ HEAD, EYES, EARS, NOSE AND THROAT: No change in vision. No change in hearing. No sore throat._ CARDIOVASCULAR: No chest pain or shortness of breath_ RESPIRATORY: Denies cough, hemoptysis_ GASTROINTESTINAL: Reports mild abdominal pain. No nausea, vomiting, diarrhea or constipation._ GENITOURINARY: No dysuria, frequency, or change in urination._ MUSCULOSKELETAL: No joint or muscle swelling or pain. No neck or back pain._ SKIN: No rash_ NEUROLOGIC: No headache, vertigo, loss of consciousness, or change in strength/sensation._ ENDOCRINE: No increased thirst. No abnormal weight change_ HEMATOLOGIC/LYMPHATIC: No anemia, easy bleeding, or history of blood clots._ ALLERGIC/IMMUNOLOGIC: No hives or skin allergy._ <Jelani Desai - Last Filed: 03/27/20 18:45> *Physical Exam - Vital Signs Last Vital Signs Temp Pulse Resp BP Pulse Ox 98 F 75 16 120/72 95 03/26/20 18:02 03/26/20 18:02 03/26/20 18:02 03/26/20 18:02 03/26/20 18:02 <BishopRoosevelt - Last Filed: 03/26/20 20:59> - Vital Signs Last Vital Signs Temp Pulse Resp BP Pulse Ox 98 F 75 16 120/72 95 03/26/20 18:02 03/26/20 18:02 03/26/20 18:02 03/26/20 18:02 03/26/20 18:02 - Physical Exam GENERAL: Awake, alert, and oriented to person/place/time, in no acute distress_ HEAD: No signs of trauma, normocephalic, atraumatic _ EYES: PERRLA, EOMI, sclera anicteric, conjunctiva clear_ ENT: Hearing grossly normal, nares patent, oropharynx clear without exudates. No uvular deviation. Moist mucosa_ NECK: Normal ROM, supple, no lymphadenopathy, JVD, or masses_ LUNGS: No distress, speaks in full sentences, clear to auscultation bilaterally _ HEART: Regular rate and rhythm, normal S1 and S2, no murmurs appreciated, peripheral pulses normal and equal bilaterally._ ABDOMEN: Soft, nontender, normoactive bowel sounds. No guarding, no rebound. No masses_ EXTREMITIES: Normal inspection, Normal range of motion, no edema. No clubbing or cyanosis_ NEUROLOGICAL: Cranial nerves II through XII grossly intact. Normal speech, normal gait, no focal sensorimotor deficits. Tremors bilaterally on outstretched hands. SKIN: Warm, Dry, normal turgor, no rashes or lesions noted_ <Jelani Desai - Last Filed: 03/27/20 18:45> ED Treatment Course - LABORATORY CBC & Chemistry Diagram: 03/26/20 18:30 03/26/20 18:30 - ADDITIONAL ORDERS Additional order review: Laboratory Results 03/26/20 18:30 Sodium 146 H Potassium 3.5 Chloride 113 H Carbon Dioxide 22 Anion Gap 11 BUN 7.9 Creatinine 0.8 Est GFR (CKD-EPI)AfAm 125.92 Est GFR (CKD-EPI)NonAf 108.65 Random Glucose 113 H Calcium 8.4 L Total Bilirubin 0.3 AST 50 H ALT 50 Alkaline Phosphatase 113 Creatine Kinase 227 Creatine Kinase Index 0.9 CK-MB (CK-2) 2.2 Troponin I < 0.02 Total Protein 7.9 Albumin 3.8 Lipase 167 03/26/20 18:30 RBC 4.65 MCV 91.0 MCHC 34.2 RDW 14.1 MPV 8.1 Neutrophils % 42.3 L Lymphocytes % 50.0 H Monocytes % 6.2 Eosinophils % 0.6 Basophils % 0.9 - RADIOLOGY Radiograph Interpretation: CXR: THIS IS A PRELIMINARY REPORT FROM [facility] DATE OF SERVICE: 2020-03-26 18:36:32 IMAGES: 2 EXAM: CHEST X-RAY PORTABLE* HISTORY: Chest pain. COMPARISON: March 11, 2020. FINDINGS: The lungs are mildly hypoinflated compared to the prior study. There is no apparent focal air space disease of acute interval onset. The heart size and mediastinal width appear within normal limits. The thoracic bones and soft tissues appear stable. IMPRESSION: No evidence of acute cardiopulmonary disease on this study.THIS DOCUMENT HAS BEEN ELECTRONICALLY SIGNED Fam Byrne MD 03/26/2020 20:29 EST - Medications Given in the ED: ED Medications Discontinued Medications Generic Name Dose Route Start Last Admin Trade Name Freq PRN Reason Stop Dose Admin Al Hydroxide/Mg Hydroxide 30 ml 03/26/20 18:25 03/26/20 18:38 Mylanta Suspension - PO 03/26/20 18:26 30 ml ONCE ONE Administration Famotidine/Sodium Chloride 20 mg in 50 mls @ 100 mls/hr 03/26/20 18:25 03/26/20 18:39 Pepcid 20 Mg Premixed Ivpb - IVPB 03/26/20 18:54 100 mls/hr ONCE ONE Administration Lidocaine HCl 20 ml 03/26/20 18:25 03/26/20 18:39 Xylocaine 2% Viscous Oral - MM 03/26/20 18:26 20 ml ONCE ONE Administration Sodium Chloride 1,000 ml 03/26/20 18:38 03/26/20 18:39 Normal Saline - IV 03/26/20 18:39 1,000 ml ONCE ONE Administration <Roosevelt Whiteside - Last Filed: 03/26/20 20:59> - LABORATORY CBC & Chemistry Diagram: 03/27/20 07:00 03/27/20 07:00 - RADIOLOGY Radiology Studies Ordered: Category Date Time Status CHEST X-RAY PORTABLE* [RAD] Stat Radiology 03/26/20 18:23 Ordered <Jelani Desai - Last Filed: 03/27/20 18:45> Medical Decision Making - Medical Decision Making 03/26/20 18:34 44M hx of anxiety, depression, ETOH use disorder, cocaine use disorder, GERD, presenting today with ETOH intoxication and abdominal pain. BIBEMS for chest pain but pt states he does not have chest pain. Denies any other symptoms. DDx includes ETOH withdrawal vs gastritis vs r/o ACS. -cbc/cmp -ekg, trop, cxr -GI cocktail -fluids 03/26/20 18:41 CIWA 26 points Nausea/vomiting > 3 = (More severe symptoms) Tremor > 5 = (More severe symptoms) Paroxysmal sweats > 1 = Barely perceptible sweating, palms moist Anxiety > 6 = (More severe symptoms) Agitation > 6 = (More severe symptoms) Tactile disturbances > 0 = None Auditory disturbances > 0 = Not present Visual disturbances > 1 = Very mild sensitivity Headache/fullness in head > 4 = Moderately severe Orientation/clouding of sensorium > 0 = Oriented, can do serial additions 03/26/20 18:42 EKG shows 90 bpm, NSR, no axis deviation, PA 146, QTc 442, no ST elevatio n/depression. 03/26/20 19:34 Labs reviewed. Laboratory Last Values WBC 4.7 K/mm3 (4.0-10.0) 03/26/20 18:30 RBC 4.65 M/mm3 (4.00-5.60) 03/26/20 18:30 Hgb 14.5 GM/dL (11.7-16.9) 03/26/20 18:30 Hct 42.3 % (35.4-49) 03/26/20 18:30 MCV 91.0 fl (80-96) 03/26/20 18:30 MCH 31.2 pg (25.7-33.7) 03/26/20 18:30 MCHC 34.2 g/dl (32.0-35.9) 03/26/20 18:30 RDW 14.1 % (11.9-15.9) 03/26/20 18:30 Plt Count 219 K/MM3 (134-434) D 03/26/20 18:30 MPV 8.1 fl (7.5-11.1) 03/26/20 18:30 Absolute Neuts (auto) 2.0 K/mm3 (1.5-8.0) 03/26/20 18:30 Neutrophils % 42.3 % (42.8-82.8) L 03/26/20 18:30 Lymphocytes % 50.0 % (8-40) H 03/26/20 18:30 Monocytes % 6.2 % (3.8-10.2) 03/26/20 18:30 Eosinophils % 0.6 % (0-4.5) 03/26/20 18:30 Basophils % 0.9 % (0-2.0) 03/26/20 18:30 Nucleated RBC % 0 % (0-0) 03/26/20 18:30 Sodium 146 mmol/L (136-145) H 03/26/20 18:30 Potassium 3.5 mmol/L (3.5-5.1) 03/26/20 18:30 Chloride 113 mmol/L (98-107) H 03/26/20 18:30 Carbon Dioxide 22 mmol/L (21-32) 03/26/20 18:30 Anion Gap 11 MMOL/L (8-16) 03/26/20 18:30 BUN 7.9 mg/dL (7-18) 03/26/20 18:30 Creatinine 0.8 mg/dL (0.55-1.3) 03/26/20 18:30 Est GFR (CKD-EPI)AfAm 125.92 03/26/20 18:30 Est GFR (CKD-EPI)NonAf 108.65 03/26/20 18:30 Random Glucose 113 mg/dL (74-106) H 03/26/20 18:30 Calcium 8.4 mg/dL (8.5-10.1) L 03/26/20 18:30 Total Bilirubin 0.3 mg/dL (0.2-1) 03/26/20 18:30 AST 50 U/L (15-37) H 03/26/20 18:30 ALT 50 U/L (13-61) 03/26/20 18:30 Alkaline Phosphatase 113 U/L (45-117) 03/26/20 18:30 Creatine Kinase 227 U/L (26-308) 03/26/20 18:30 Troponin I < 0.02 ng/ml (0.00-0.05) 03/26/20 18:30 Total Protein 7.9 g/dl (6.4-8.2) 03/26/20 18:30 Albumin 3.8 g/dl (3.4-5.0) 03/26/20 18:30 Lipase 167 U/L (73-393) 03/26/20 18:30 03/26/20 20:45 CXR negative for acute intrathoracic pathology. 03/26/20 20:52 D/w Dr. Brice who accepts the patient for admission. <Jelani Desai - Last Filed: 03/27/20 18:45> Discharge <Roosevelt Whiteside - Last Filed: 03/26/20 20:59> - Discharge Information Problems reviewed: Yes - Admission Yes <Jelani Desai - Last Filed: 03/27/20 18:45> - Discharge Information Clinical Impression/Diagnosis: Alcohol dependence Condition: Stable
[2020-03-26] MEDS ORDERED: MAG HYDROX/AL HYDROX/SIMETH -MYLANTA- ORAL SUSPENSION PO ONE (18:25)
[2020-03-26] MEDS ORDERED: FAMOTIDINE 20 MG/50 ML IVPB 20 MG/50 ML MG IVPB ONE ×2 (18:25→18:32)
[2020-03-26] MEDS ORDERED: LIDOCAINE VISCOUS 2% ORAL/TOP 20 ML UNIT-DOSE CUP MM ONE (18:25)
[2020-03-26] MEDS ORDERED: chlordiazePOXIDE HCL 25 MG CAPSULE PO ONE (18:25)
[2020-03-26] MEDS ORDERED: MAG HYDROX/AL HYDROX/SIMETH 30 ML UNIT-DOSE CUP ONE (18:32)
[2020-03-26] MEDS ORDERED: LIDOCAINE VISCOUS 2% ORAL/TOP 20 ML UNIT-DOSE CUP ONE (18:32)
[2020-03-26] MEDS ORDERED: SODIUM CHLORIDE 0.9% 500 ML INFUS.BAG IV ONE (18:38)
[2020-03-26 18:48] LABS: BASO % 0.9 % (0-2.0); EOS % 0.6 % (0-4.5); HEMATOCRIT 42.3 % (35.4-49); HEMOGLOBIN 14.5 GM/dL (11.7-16.9); MCH 31.2 pg (25.7-33.7); MCHC 34.2 g/dl (32.0-35.9); MEAN PLT VOLUME 8.1 fl (7.5-11.1); MONO % 6.2 % (3.8-10.2); NEUT % 42.3 % (42.8-82.8); PLATELET COUNT 219 K/MM3 (134-434); RBC 4.65 M/mm3 (4.00-5.60); RDW 14.1 % (11.9-15.9); WHITE BLOOD COUNT 4.7 K/mm3 (4.0-10.0)
[2020-03-26 19:15] LABS: ALBUMIN 3.8 g/dl (3.4-5.0); ALK PHOS 113 U/L (45-117); ANION GAP 11 MMOL/L (8-16); BILIRUBIN,TOTAL 0.3 mg/dL (0.2-1); BLOOD UREA NITROGEN 7.9 mg/dL (7-18); CALCIUM 8.4 mg/dL (8.5-10.1); CHLORIDE 113 mmol/L (98-107); CO2 22 mmol/L (21-32); CREATININE 0.8 mg/dL (0.55-1.3); GLUCOSE,RANDOM 113 mg/dL (74-106); LIPASE 167 U/L (73-393); POTASSIUM 3.5 mmol/L (3.5-5.1); SGOT/AST 50 U/L (15-37); SGPT/ALT 50 U/L (13-61); SODIUM 146 mmol/L (136-145); TOT PROT 7.9 g/dl (6.4-8.2)
[2020-03-26] MEDS ORDERED: FOLIC ACID INJECTION - 1 MG, THIAMINE HCL 100 MG, MULTIVIT INJECTION ADULT 10 ML in SOD... IVPB ONE (19:19)
--- NOTE | 2020-03-26 20:32 | PN ---
Teaching Attending Note Name of Resident: Gala Brice ATTENDING PHYSICIAN STATEMENT I saw and evaluated the patient. I reviewed the resident's note and discussed the case with the resident. I agree with the resident's findings and plan as documented. SUBJECTIVE: Patient is a 44 year old man with a PMH of Polysubstance abuse (alcohol, c ocaine, marijuana), Tobacco use, Depression, Anxiety and GERD brought by EMS for alcohol overuse and chest pain. Per EMS, he called 911 to his home because he had been drinking too much and had chest pain and was requesting to go to the hospital. Per EMS patient had pinpoint pupils but that was not seen on presentation. At bedside, patient reports that he never had chest pain but has mild periumbilical abdominal pain. Also states that he wants to go to Detox. Last drink was 2 pm this afternoon. Reports drinking 1/5th of Vodka and multiple beers. States that he has been drinking every day since his discharge from this hospital a couple of weeks ago and smoking marijuana, but denies cocaine, heroin, or other drug use. Has had recent bloody diarrhea and mid abdominal pain. Was recently hospitalized here from 03/11/20 to 03/15/20 for chest pain attributed to cocaine use. He tested negative for COVID-19 on 03/11/20. Patient denies shortness of breath, headache, palpitations, dizziness, fever, chills, nausea, vomiting, diarrhea, constipation, dysuria, frequency, urgency, melena, hematochezia or hematuria. 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 No sick contacts or recent travels. Patient has a family history of depression in his mother. OBJECTIVE: Alert Vital Signs Period Temp Pulse Resp BP Sys/[place] Pulse Ox Last 24 Hr 98 F 75 16 120/72 95 HEENT: No Jaundice, eye redness or discharge, PERRLA, EOMI. Normocephalic, atraumatic. External ears are normal and hearing is grossly intact. No nasal discharge. Neck: Supple, nontender. No palpable adenopathy or thyromegaly. No JVD Chest: Good effort. Clear to auscultation and percussion. Heart: Regular. No S3, rub or murmur Abdomen: Not distended, soft, nontender and no HSM. No rebound or guarding. Normal bowel sounds. Ext: Peripheral pulses intact. No leg edema. Skin: Warm and dry. No petechiae, rash or ecchymosis. Neuro: Alert. Agitated. Oriented x3. CN 2-12 grossly intact. Sensation grossly intact in all four extremities and DTR are symmetric. Psych: Appropriate mood and affect. Good insight. Home Medications Medication Instructions Recorded Zolpidem Tartrate [Ambien] 10 mg PO HS #30 tablet 09/08/15 Aspirin Coated [Ecotrin -] 81 mg PO DAILY tablet.ec 03/13/20 Cyanocobalamin [Vitamin B12 -] 100 mcg PO DAILY tablet 03/13/20 Folic Acid - 1 mg PO DAILY tablet 03/13/20 Quetiapine Fumarate [Seroquel -] 200 mg PO DAILY 03/13/20 Thiamine HCl [Vitamin B1 -] 100 mg PO DAILY tablet 03/13/20 traZODone HCL [Desyrel -] 200 mg PO HS 03/13/20 Abnormal Lab Results 03/26/20 03/26/20 18:30 18:30 Neutrophils % 42.3 L Lymphocytes % 50.0 H Sodium 146 H Chloride 113 H Random Glucose 113 H Calcium 8.4 L AST 50 H Current Medications Generic Name Dose Route Start Last Admin Trade Name Freq PRN Reason Stop Dose Admin Chlordiazepoxide HCl 10 mg 03/28/20 00:00 Librium - PO 03/28/20 23:59 Q12H PRN Signs/symptoms of Withdrawal Chlordiazepoxide HCl 10 mg 03/26/20 22:21 Librium - PO 03/27/20 23:59 Q8H PRN Signs/symptoms of Withdrawal Chlordiazepoxide HCl 15 mg 03/27/20 05:00 Librium - PO 03/27/20 21:01 Q8H JERICHO Chlordiazepoxide HCl 10 mg 03/28/20 05:00 Librium - PO 03/28/20 21:01 Q8H JERICHO Chlordiazepoxide HCl 10 mg 03/29/20 05:00 Librium - PO 03/29/20 05:01 ONCE ONE Enoxaparin Sodium 40 mg 03/27/20 10:00 Lovenox - SQ DAILY JERICHO Folic Acid 1 mg 03/27/20 10:00 Folic Acid - PO DAILY JERICHO Folic Acid 1 mg/ Thiamine HCl 1,000 mls @ 125 mls/hr 03/26/20 19:19 03/26/20 23:01 100 mg/ Multivitamins/Minerals IVPB 03/27/20 03:18 125 mls/hr 10 ml/ Sodium Chloride ONCE ONE Administration Thiamine HCl 100 mg 03/27/20 10:00 Vitamin B1 - PO DAILY [facility] ASSESSMENT AND PLAN: 1. Alcohol intoxication/withdrawal syndrome - Blood alcohol level not available. Will give IV Protonix and get CT abdomen/pelvis to investigate "bloody" diarrhea. Will send diarrheal stool sample for stool studies including C.Diff toxin. Will implement [facility] librium alcohol withdrawal protocol and do neurochecks. Implement seizure, fall and aspiration precautions. Treat with IV Banana bag, thiamine and folic acid. Monitor and replete electrolytes (Ca,Mg,K,P). Counseled patient about abstaining from alcohol/illicit drugs. Will consult contract administration specialist and refer to alcohol/drug detox upon discharge. CXR shows cardiomegaly with no evidence of acute lung disease. ER staff prescribed Librium, Viscous lidocaine, Folic acid, Mylanta, Pepcid and IV NS for the patient. EKG shows NSR at 90/minute and QTc [address]-T wave changes. Initial troponin is negative. Viral testing for COVID-19 ordered and patient placed on airborne, droplet and contact isolation. Will continue comprehensive care for all of patients comorbid conditions. 2. Tobacco Use Counseled on risks associated with tobacco use. We will provide patient all the necessary assistance to facilitate smoking cessation and prescribe Nicotine patch. 3. Obesity Counseled on the risks associated with obesity. Will provide patient all the necessary assistance, counseling and positive reinforcement to facilitate weight loss. Consult preparation room manager. 4. DVT prophylaxis - Lovenox 40 mg SQ q 24 hours. 5. Advance directives - Full code
[2020-03-26] MEDS ORDERED: POTASSIUM CHLORIDE TABS 20 MEQ TABLET.ER (FP) PO ONE ×2 (21:00→22:33)
--- NOTE | 2020-03-26 21:00 | PDOC ---
Attending Attestation - Resident Resident Name: Jelani Desai - ED Attending Attestation I have performed the following: I have examined & evaluated the patient, The case was reviewed & discussed with the resident, I agree w/resident's findings & plan - HPI HPI: 03/26/20 20:59 Pt comes with chest pain. Patient is a 44 year old man with a PMH of Polysubstance abuse (alcohol, cocaine, marijuana), Tobacco use, Depression, Anxiety and GERD brought by EMS for alcohol overuse and chest pain. At bedside, pt reports that he never had chest pain but has mild periumbilical abdominal pain. Also states that he wants to go to detox. Last drink was 2pm this afternoon. Reports drinking 1/5th of vodka and multiple beers. States that he has been drinking every day since his discharge from this hospital a couple of weeks ago and smoking marijuana, but denies cocaine, heroin, or other drug use. - Physicial Exam PE: 03/26/20 21:02 Agree with resident exam - Medical Decision Making 03/26/20 21:02 Labs normal Pt will be admitted for chest pain and observation on tele. He will follow that with detox, once medically cleared. Discharge - Discharge Information Problems reviewed: Yes Clinical Impression/Diagnosis: Alcohol dependence - Follow up/Referral - Patient Discharge Instructions - Post Discharge Activity
[2020-03-26] MEDS ORDERED: chlordiazePOXIDE HCL 10 MG CAPSULE PO PRN (22:21)
--- NOTE | 2020-03-26 23:37 | HP ---
PCP: None HISTORY OF PRESENT ILLNESS: Patient is a 44 yo male with a PMH of depression, anxiety, PTSD and GERD who presented to the ED today because he was feeling unwell after >12 bottles of beer and 4 pints of vodka with CIWA 12. Patient took more than 12 bottles of beer and 4 pints of vodka this morning. No associated seizures but pt. admits to eye-software support representative. There is associated nausea and one episode of vomiting of recently ingested food, no blood in vomitus. He also has generalized sharp abdominal pain x 1day. It was of gradual onset, non radiating, not associated with meals, 8/10 severity with no known relieving or aggravating factor. No current nausea or vomiting He also has associated 5 episodes of blood stained diarrhea since admission. Pt. did not quantity diarrhea. There is no associated chest pain, sob, jaundice, constipation, visual or auditory impairment, falls, hallucinations and no recent antibiotics use. ER course was notable for: (1)Librium protocol prescribed (2)Oral xylocaine (3)Folic acid, Mylanta, Pepcid and IV NS for the patient. (4)Viral testing for COVID-19 REVIEW OF SYSTEMS: Negative except as in HPI Recent Travel: None Medication Hx: Pt says he is on trazodone, seroquel, ambien PAST SURGICAL HISTORY: Jaw sugery. Metal inserted following a fracture sustained during an arrest by a police sergeant Social History: Alcohol: Yes Smoking: Yes, tobacco Drugs: Marijuana, 2 bags usually but hasn't had any for 2 months now Allergies No Known Drug Allergies Allergy (Verified 03/26/20 19:15) pollen extracts Adverse Reaction (Verified 03/26/20 18:13) Home Medications Medication Instructions Recorded Zolpidem Tartrate [Ambien] 10 mg PO HS #30 tablet 09/08/15 Aspirin Coated [Ecotrin -] 81 mg PO DAILY tablet.ec 03/13/20 Cyanocobalamin [Vitamin B12 -] 100 mcg PO DAILY tablet 03/13/20 Folic Acid - 1 mg PO DAILY tablet 03/13/20 Quetiapine Fumarate [Seroquel -] 200 mg PO DAILY 03/13/20 Thiamine HCl [Vitamin B1 -] 100 mg PO DAILY tablet 03/13/20 traZODone HCL [Desyrel -] 200 mg PO HS 03/13/20 PHYSICAL EXAMINATION: Patient was initially lying quietly in bed, had to go to the bathroom to stool about 2x during the encounter. Patient suddenly became agitated and refused to participate in further physical exam when we explained we couldn't shake his hands because of the pandermic. Vital Signs - 24 hr 03/26/20 18:02 Temperature 98 F Pulse Rate 75 Respiratory 16 Rate Blood Pressure 120/72 O2 Sat by Pulse 95 Oximetry (%) . Laboratory Results - last 24 hr 03/26/20 03/26/20 18:30 18:30 WBC 4.7 RBC 4.65 Hgb 14.5 Hct 42.3 MCV 91.0 MCH 31.2 MCHC 34.2 RDW 14.1 Plt Count 219 D MPV 8.1 Absolute Neuts (auto) 2.0 Neutrophils % 42.3 L Lymphocytes % 50.0 H Monocytes % 6.2 Eosinophils % 0.6 Basophils % 0.9 Nucleated RBC % 0 Sodium 146 H Potassium 3.5 Chloride 113 H Carbon Dioxide 22 Anion Gap 11 BUN 7.9 Creatinine 0.8 Est GFR (CKD-EPI)AfAm 125.92 Est GFR (CKD-EPI)NonAf 108.65 Random Glucose 113 H Calcium 8.4 L Total Bilirubin 0.3 AST 50 H ALT 50 Alkaline Phosphatase 113 Creatine Kinase 227 Creatine Kinase Index 0.9 CK-MB (CK-2) 2.2 Troponin I < 0.02 Total Protein 7.9 Albumin 3.8 Lipase 167 ASSESSMENT/PLAN: Patient is a 44 yo male with a PMH of depression, anxiety, PTSD and GERD who presented to the ED today with symptoms of alcohol withdrawal- CIWA 12, Abdominal pain and diarrhea. ELectrolytes is significant for Cl: 113mEq/ml, HCO3: 22mEq/ml, Ca2+: 8.4mEq/ml. CXR: Cardiomegaly, Abd XR: No sign of intra- abdominal pathology seen. Troponin was negative 1. Alcohol dependence with withdrawal -Pt drank 2 bottles of beer and 4 pints of vodka -CIWA: 12 -Hx of substance abuse: alcohol and marijuana abuse(last taken 2months ago) -Extensive FHx of substance/alcohol abuse -Admit to med-surg -Place patient on librium protocol -Neuro check Q1H -Seizure, fall and aspiration protocol -Banana bag for fluids, electrolytes, folic acid and thiamine replacement -Monitor Mg, Phosphate and Calcium levels -Lipid profile since alcohol can cause hyperlipidemia -Bedside speech and swallowing evaluation b4 regular meals -Engine Monitor pt. on complications of alcohol abuse as well as the benefits of stopping -Given difficult patient, consult financial services specialist to review and discuss alcohol cessation -Refer pt for substance abuse(alcohol +)detox and rehabilitation if pt is ready and willing -QTC proloning meds be avoided or put on hold 2. Alcohol induced diarrhea vs infectious diarrhea 5 episodes of bloody diarrhea since admission Pt. didn't specify amount when asked even with help Associated generalized abdominal pain Hx of alcohol abuse, hx of gastritis of which the bleeding could irritate the GIT leading to diarrhea -Stool WBC, Osmolarity, Culture and sensitivity -Stool sample for C. Diff antigen, Stool O&P -Non- contrast CT abdomen and pelvis stat to investigate diarrhea -UA stat -Mylanta, Pepcid and IVF: N/S 3. Alcohol induced gastritis vs GERD -Hx of alcohol abuse -Hx of GERD -Current bloody diarrhea -Protonix 40mg IV push 4. Dehydration: Multiple episodes of diarrhea Cl-: 113mEq/ml 5. Nicotine use disorder: Nicotine patch to help with tobacco withdrawal while on admission Engine Monitor patients abouts complication of smoking and encourage him to consider cessation 6. Covid in disposition: -Feeling unwell -Covid-19 viral PCR result pending -Place pt airborne, droplet and contact isolation until result is obtained 7. Disposition: DVT prophylaxis: Lovenox 40 mg SQ q 24 hours. Advance directives - Full code Visit type - Emergency Visit Emergency Visit: Yes ED Registration Date: 03/26/20 Care time: The patient presented to the Emergency Department on the above date and was hospitalized for further evaluation of their emergent condition. - New Patient This patient is new to me today: Yes Date on this admission: 03/26/20 - Critical Care Critical Care patient: No ATTENDING PHYSICIAN STATEMENT I saw and evaluated the patient. I reviewed the resident's note and discussed the case with the resident. I agree with the resident's findings and plan as documented. SUBJECTIVE: OBJECTIVE: ASSESSMENT AND PLAN:
[2020-03-27] MEDS: chlordiazePOXIDE 5 MG CAPSULE PO SCH ×3 (05:20→21:56)
[2020-03-27 05:46] VITALS: BMI 34.6
[2020-03-27 07:52] LABS: HEMOGLOBIN 13.4 GM/dL (11.7-16.9); MCH 30.7 pg (25.7-33.7); MCHC 33.4 g/dl (32.0-35.9); MEAN CELL VOLUME 91.9 fl (80-96); MEAN PLT VOLUME 7.7 fl (7.5-11.1); PLATELET COUNT 202 K/MM3 (134-434); RBC 4.35 M/mm3 (4.00-5.60); RDW 14.5 % (11.9-15.9)
[2020-03-27 08:00] LABS: URINE APPEARANCE CLEAR; URINE BILIRUBIN NEGATIVE (NEGATIVE); URINE COLOR YELLOW; URINE GLUCOSE (UA) NEGATIVE (NEGATIVE); URINE KETONE NEGATIVE (NEGATIVE); URINE LEUK ESTERASE NEGATIVE (NEGATIVE); URINE NITRITE NEGATIVE (NEGATIVE); URINE PROTEIN NEGATIVE (NEGATIVE); URINE UROBILINOGEN 0.2 mg/dL (0.2-1.0)
[2020-03-27 08:10] LABS: ALBUMIN 3.4 g/dl (3.4-5.0); BILIRUBIN,TOTAL 0.3 mg/dL (0.2-1); BLOOD UREA NITROGEN 8.2 mg/dL (7-18); CALCIUM 7.4 mg/dL (8.5-10.1); CREATININE 0.7 mg/dL (0.55-1.3); MAGNESIUM 2.2 mg/dL (1.8-2.4); PHOSPHOROUS 3.1 mg/dL (2.5-4.9); POTASSIUM 3.7 mmol/L (3.5-5.1); TOT PROT 6.9 g/dl (6.4-8.2)
--- NOTE | 2020-03-27 09:56 | EKG ---
Test Reason : Blood Pressure : / mmHG Vent. Rate : 090 BPM Atrial Rate : 090 BPM P-R Int : 146 ms QRS Dur : 092 ms QT Int : 362 ms P-R-T Axes : 026 -02 005 degrees QTc Int : 442 ms POOR DATA QUALITY, INTERPRETATION MAY BE ADVERSELY AFFECTED NORMAL SINUS RHYTHM NORMAL ECG WHEN COMPARED WITH ECG OF 12-MAR-2020 09:34, NO SIGNIFICANT CHANGE WAS FOUND Confirmed by Heide Juarez ([id number]) on 03/27/2020 9:56:12 AM Referred By: Confirmed By:Heide Juarez
[2020-03-27] MEDS ORDERED: FOLIC ACID 1 MG TABLET (FP) PO SCH (10:00)
[2020-03-27] MEDS ORDERED: PANTOPRAZOLE SODIUM 40 MG VIAL IVPUSH SCH ×2 (10:00→22:00)
[2020-03-27] MEDS ORDERED: THIAMINE HCL 100 MG TABLET (FP) PO SCH (10:00)
[2020-03-27] MEDS ORDERED: ENOXAPARIN NA (PORCINE) 40 MG/0.4 ML DISP.SYRIN SQ SCH (10:00)
[2020-03-27] MEDS ORDERED: ZOLPIDEM TARTRATE 5 MG TABLET PO PRN (13:51)
--- NOTE | 2020-03-27 14:10 | PN ---
Physical Exam: SUBJECTIVE: Patient seen and examined at bedside this morning. Patient reports diarrhea, but denies fevers, chills, headache, chest pain, SOB, abdominal pain, bloody stools/urine. Patient was seen roaming around the hallway, trying to get hand sanitizers, which of note, he was seen trying to ingest from previous admission. He was warned not to do it again. Transferred to a room in front of nurse's station. OBJECTIVE: Vital Signs Temperature 98.3 F 03/27/20 09:49 Pulse Rate 80 03/27/20 09:49 Respiratory Rate 20 03/27/20 09:49 Blood Pressure 116/75 03/27/20 09:49 O2 Sat by Pulse Oximetry (%) 96 03/27/20 09:49 GENERAL: The patient is awake, alert, and fully oriented, in no acute distress. NECK: full range of motion, supple. LUNGS: Breath sounds equal, clear to auscultation bilaterally HEART: Regular rate and rhythm, S1, S2 ABDOMEN: Soft, nontender, nondistended, normoactive bowel sounds EXTREMITIES: 2+ pulses, warm, well-perfused, no edema. NEUROLOGICAL: Cranial nerves II through XII grossly intact. Normal speech PSYCH: Normal mood, normal affect. Cooperative. SKIN: Warm, dry, normal turgor Laboratory Results - last 24 hr 03/26/20 03/26/20 03/27/20 18:30 18:30 06:37 WBC 4.7 RBC 4.65 Hgb 14.5 Hct 42.3 MCV 91.0 MCH 31.2 MCHC 34.2 RDW 14.1 Plt Count 219 D MPV 8.1 Absolute Neuts (auto) 2.0 Neutrophils % 42.3 L Lymphocytes % 50.0 H Monocytes % 6.2 Eosinophils % 0.6 Basophils % 0.9 Nucleated RBC % 0 Sodium 146 H Potassium 3.5 Chloride 113 H Carbon Dioxide 22 Anion Gap 11 BUN 7.9 Creatinine 0.8 Est GFR (CKD-EPI)AfAm 125.92 Est GFR (CKD-EPI)NonAf 108.65 Random Glucose 113 H Calcium 8.4 L Phosphorus Magnesium Total Bilirubin 0.3 AST 50 H ALT 50 Alkaline Phosphatase 113 Creatine Kinase 227 Creatine Kinase Index 0.9 CK-MB (CK-2) 2.2 Troponin I < 0.02 Total Protein 7.9 Albumin 3.8 Lipase 167 Vitamin B12 Serum Folate Urine Color Yellow Urine Appearance Clear Urine pH 5.0 Ur Specific [place] 1.011 Urine Protein Negative Urine Glucose (UA) Negative Urine Ketones Negative Urine Blood Negative Urine Nitrite Negative Urine Bilirubin Negative Urine Urobilinogen 0.2 Ur Leukocyte Esterase Negative 03/27/20 03/27/20 07:00 07:00 WBC 5.0 RBC 4.35 Hgb 13.4 Hct 40.0 MCV 91.9 MCH 30.7 MCHC 33.4 RDW 14.5 Plt Count 202 MPV 7.7 Absolute Neuts (auto) Neutrophils % Lymphocytes % Monocytes % Eosinophils % Basophils % Nucleated RBC % Sodium 146 H Potassium 3.7 Chloride 115 H Carbon Dioxide 22 Anion Gap 9 BUN 8.2 Creatinine 0.7 Est GFR (CKD-EPI)AfAm 133.02 Est GFR (CKD-EPI)NonAf 114.77 Random Glucose 98 Calcium 7.4 L Phosphorus 3.1 Magnesium 2.2 Total Bilirubin 0.3 AST 35 ALT 40 Alkaline Phosphatase 83 Creatine Kinase Creatine Kinase Index CK-MB (CK-2) Troponin I Total Protein 6.9 Albumin 3.4 Lipase Vitamin B12 401 Serum Folate 11 Urine Color Urine Appearance Urine pH Ur Specific [place] Urine Protein Urine Glucose (UA) Urine Ketones Urine Blood Urine Nitrite Urine Bilirubin Urine Urobilinogen Ur Leukocyte Esterase Active Medications Generic Name Dose Route Start Last Admin Trade Name Freq PRN Reason Stop Dose Admin Chlordiazepoxide HCl 10 mg 03/28/20 00:00 Librium - PO 03/28/20 23:59 Q12H PRN Signs/symptoms of Withdrawal Chlordiazepoxide HCl 10 mg 03/26/20 22:21 Librium - PO 03/27/20 23:59 Q8H PRN Signs/symptoms of Withdrawal Chlordiazepoxide HCl 15 mg 03/27/20 05:00 03/27/20 13:04 Librium - PO 03/27/20 21:01 15 mg Q8H JERICHO Administration Chlordiazepoxide HCl 10 mg 03/28/20 05:00 Librium - PO 03/28/20 21:01 Q8H JERICHO Chlordiazepoxide HCl 10 mg 03/29/20 05:00 Librium - PO 03/29/20 05:01 ONCE ONE Folic Acid 1 mg 03/27/20 10:00 03/27/20 09:44 Folic Acid - PO 1 mg DAILY JERICHO Administration Pantoprazole Sodium 40 mg 03/27/20 22:00 Protonix Iv IVPUSH BID JERICHO Thiamine HCl 100 mg 03/27/20 10:00 03/27/20 09:44 Vitamin B1 - PO 100 mg DAILY JERICHO Administration ASSESSMENT/PLAN: Patient is a 44 year old male patient with past medical history of alcohol use disorder, polysubstance use, anxiety, depression, GERD, who presented to the ED with alcohol intoxication and diarrhea. #Diarrhea/abdominal pain -reported by patient, ?bloody stools, has not given any stool sample despite constant reminder -CT abdomen/pelvis ordered for further evaluation -will keep NPo for now pending work up -IVF -Protonix 40mg bid #Alcohol withdrawal -CIWA monitoring -On Librium detox protoco -Continue Thiamine/folic acid/MV -Protonix -social media specialist (Dr. Gonzalez) consulted. #Anxiety/Depression -Continue home Trazodone and Quetiapine #FEN -D5-NS@83cc/hr -routine bmp monitoring -NPO #Prophylaxis -SCDs for now #Disposition -full code -med surg Visit type - Emergency Visit Emergency Visit: Yes ED Registration Date: 03/26/20 Care time: The patient presented to the Emergency Department on the above date and was hospitalized for further evaluation of their emergent condition. - New Patient This patient is new to me today: Yes Date on this admission: 03/27/20 - Critical Care Critical Care patient: No ATTENDING PHYSICIAN STATEMENT I saw and evaluated the patient. I reviewed the resident's note and discussed the case with the resident. I agree with the resident's findings and plan as documented. SUBJECTIVE: OBJECTIVE: ASSESSMENT AND PLAN:
[2020-03-27] MEDS: DEXTROSE 5%-NORMAL SALINE 1,000 ML IV SCH (16:47)
--- NOTE | 2020-03-27 17:38 | PN ---
Teaching Attending Note Name of Resident: Laurence Cat ATTENDING PHYSICIAN STATEMENT I saw and evaluated the patient. I reviewed the resident's note and discussed the case with the resident. I agree with the resident's findings and plan as documented. SUBJECTIVE: Patient seen and examined at bedside, admitted for PSA w/ Etoh intoxication and withdrawal, currently ambulating around room, endorses anxiety. Will cont. Etoh withdrawal protocol. VSS. OBJECTIVE: GENERAL: AAOx3, anxious, ambulating without assistance NECK: full range of motion, supple. LUNGS: Breath sounds equal, clear to auscultation bilaterally HEART: Regular rate and rhythm, S1, S2 ABDOMEN: grossly Soft, mild tenderness , nondistended, no guarding, normoactive bowel sounds EXTREMITIES: 2+ pulses, warm, well-perfused, no edema. NEUROLOGICAL: Cranial nerves II through XII grossly intact. Normal speech PSYCH: anxious, pacing. SKIN: Warm, dry, normal turgor Vital Signs - 24 hr 03/26/20 03/26/20 03/27/20 18:02 20:46 00:17 Temperature 98 F 98.3 F 97.7 F Pulse Rate 75 87 Pulse Rate [ 89 Right Apical] Respiratory 16 20 20 Rate Blood Pressure 120/72 100/53 L Blood Pressure 117/71 [Left Arm] O2 Sat by Pulse 95 94 L 90 L Oximetry (%) 03/27/20 03/27/20 03/27/20 07:01 09:00 09:49 Temperature 97.5 F L 98.3 F Pulse Rate 87 80 Pulse Rate [ Right Apical] Respiratory 20 20 Rate Blood Pressure 124/64 116/75 Blood Pressure [Left Arm] O2 Sat by Pulse 96 96 96 Oximetry (%) 03/27/20 14:00 Temperature 98.1 F Pulse Rate 78 Pulse Rate [ Right Apical] Respiratory 20 Rate Blood Pressure 124/76 Blood Pressure [Left Arm] O2 Sat by Pulse 95 Oximetry (%) Laboratory Results - last 24 hr 03/26/20 03/26/20 03/27/20 18:30 18:30 06:37 WBC 4.7 RBC 4.65 Hgb 14.5 Hct 42.3 MCV 91.0 MCH 31.2 MCHC 34.2 RDW 14.1 Plt Count 219 D MPV 8.1 Absolute Neuts (auto) 2.0 Neutrophils % 42.3 L Lymphocytes % 50.0 H Monocytes % 6.2 Eosinophils % 0.6 Basophils % 0.9 Nucleated RBC % 0 Sodium 146 H Potassium 3.5 Chloride 113 H Carbon Dioxide 22 Anion Gap 11 BUN 7.9 Creatinine 0.8 Est GFR (CKD-EPI)AfAm 125.92 Est GFR (CKD-EPI)NonAf 108.65 Random Glucose 113 H Calcium 8.4 L Phosphorus Magnesium Total Bilirubin 0.3 AST 50 H ALT 50 Alkaline Phosphatase 113 Creatine Kinase 227 Creatine Kinase Index 0.9 CK-MB (CK-2) 2.2 Troponin I < 0.02 Total Protein 7.9 Albumin 3.8 Lipase 167 Vitamin B12 Serum Folate Urine Color Yellow Urine Appearance Clear Urine pH 5.0 Ur Specific [place] 1.011 Urine Protein Negative Urine Glucose (UA) Negative Urine Ketones Negative Urine Blood Negative Urine Nitrite Negative Urine Bilirubin Negative Urine Urobilinogen 0.2 Ur Leukocyte Esterase Negative 03/27/20 03/27/20 07:00 07:00 WBC 5.0 RBC 4.35 Hgb 13.4 Hct 40.0 MCV 91.9 MCH 30.7 MCHC 33.4 RDW 14.5 Plt Count 202 MPV 7.7 Absolute Neuts (auto) Neutrophils % Lymphocytes % Monocytes % Eosinophils % Basophils % Nucleated RBC % Sodium 146 H Potassium 3.7 Chloride 115 H Carbon Dioxide 22 Anion Gap 9 BUN 8.2 Creatinine 0.7 Est GFR (CKD-EPI)AfAm 133.02 Est GFR (CKD-EPI)NonAf 114.77 Random Glucose 98 Calcium 7.4 L Phosphorus 3.1 Magnesium 2.2 Total Bilirubin 0.3 AST 35 ALT 40 Alkaline Phosphatase 83 Creatine Kinase Creatine Kinase Index CK-MB (CK-2) Troponin I Total Protein 6.9 Albumin 3.4 Lipase Vitamin B12 401 Serum Folate 11 Urine Color Urine Appearance Urine pH Ur Specific [place] Urine Protein Urine Glucose (UA) Urine Ketones Urine Blood Urine Nitrite Urine Bilirubin Urine Urobilinogen Ur Leukocyte Esterase Home Medications Medication Instructions Recorded Zolpidem Tartrate [Ambien] 10 mg PO HS #30 tablet 09/08/15 Aspirin Coated [Ecotrin -] 81 mg PO DAILY tablet.ec 03/13/20 Cyanocobalamin [Vitamin B12 -] 100 mcg PO DAILY tablet 03/13/20 Folic Acid - 1 mg PO DAILY tablet 03/13/20 Quetiapine Fumarate [Seroquel -] 100 mg PO DAILY 03/13/20 Thiamine HCl [Vitamin B1 -] 100 mg PO DAILY tablet 03/13/20 traZODone HCL [Desyrel -] 50 mg PO HS 03/13/20 Current Medications Generic Name Dose Route Start Last Admin Trade Name Freq PRN Reason Stop Dose Admin Aspirin 81 mg 03/28/20 10:00 Ecotrin - PO DAILY JERICHO Chlordiazepoxide HCl 10 mg 03/28/20 00:00 Librium - PO 03/28/20 23:59 Q12H PRN Signs/symptoms of Withdrawal Chlordiazepoxide HCl 10 mg 03/26/20 22:21 Librium - PO 03/27/20 23:59 Q8H PRN Signs/symptoms of Withdrawal Chlordiazepoxide HCl 15 mg 03/27/20 05:00 03/27/20 13:04 Librium - PO 03/27/20 21:01 15 mg Q8H JERICHO Administration Chlordiazepoxide HCl 10 mg 03/28/20 05:00 Librium - PO 03/28/20 21:01 Q8H JERICHO Chlordiazepoxide HCl 10 mg 03/29/20 05:00 Librium - PO 03/29/20 05:01 ONCE ONE Cyanocobalamin 100 mcg 03/28/20 10:00 Vitamin B12 - PO DAILY [facility] Folic Acid 1 mg 03/28/20 10:00 Folic Acid - PO DAILY [facility] Dextrose/Sodium Chloride 1,000 mls @ 83 mls/hr 03/27/20 14:15 03/27/20 16:47 D5-Ns - IV 83 mls/hr ASDIR JERICHO Administration Pantoprazole Sodium 40 mg 03/27/20 22:00 Protonix Iv IVPUSH BID [facility] Quetiapine Fumarate 100 mg 03/28/20 10:00 Seroquel - PO DAILY [facility] Thiamine HCl 100 mg 03/28/20 10:00 Vitamin B1 - PO DAILY [facility] Trazodone HCl 50 mg 03/27/20 22:00 Desyrel - PO HS [facility] Zolpidem Tartrate 10 mg 03/27/20 13:51 Ambien - PO HS PRN INSOMNIA ASSESSMENT AND PLAN: 44 M Etoh intoxication and withdrawal Diarrhea PSA Cocaine abuse THC abuse Etoh abuse 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
[2020-03-27 21:54] VITALS: TEMP 98.2
[2020-03-27] MEDS ORDERED: traZODone HCL 50 MG TABLET (FP) PO SCH (22:00)
[2020-03-28] MEDS ORDERED: chlordiazePOXIDE HCL 10 MG CAPSULE PO PRN
[2020-03-28] MEDS: DEXTROSE 5%-NORMAL SALINE 1,000 ML IV SCH (00:59)
[2020-03-28] MEDS: chlordiazePOXIDE HCL 25 MG CAPSULE PO SCH (01:28)
[2020-03-28] MEDS ORDERED: chlordiazePOXIDE HCL 10 MG CAPSULE PO SCH (05:00)
[2020-03-28 05:08] VITALS: BP 125/75; PULSE 89
--- NOTE | 2020-03-28 05:08 | PN ---
Progress Note (short form) - Note Progress Note: Paged by nurse at 4:30AM stating patient would like to leave against medical advise. Patient is alert and oriented x 3. All risk and consequences of doing so were explained to the patient in detail including risk of motor vehicle accident, heart attack, stroke, coma and even .
--- NOTE | 2020-03-28 06:57 | DS ---
Physical Exam: SUBJECTIVE: Patient signed out AMA overnight. LABS Laboratory Results - last 24 hr 03/27/20 03/27/20 03/27/20 06:37 07:00 07:00 WBC 5.0 RBC 4.35 Hgb 13.4 Hct 40.0 MCV 91.9 MCH 30.7 MCHC 33.4 RDW 14.5 Plt Count 202 MPV 7.7 Sodium 146 H Potassium 3.7 Chloride 115 H Carbon Dioxide 22 Anion Gap 9 BUN 8.2 Creatinine 0.7 Est GFR (CKD-EPI)AfAm 133.02 Est GFR (CKD-EPI)NonAf 114.77 Random Glucose 98 Calcium 7.4 L Phosphorus 3.1 Magnesium 2.2 Total Bilirubin 0.3 AST 35 ALT 40 Alkaline Phosphatase 83 Total Protein 6.9 Albumin 3.4 Vitamin B12 401 Serum Folate 11 Urine Color Yellow Urine Appearance Clear Urine pH 5.0 Ur Specific [place] 1.011 Urine Protein Negative Urine Glucose (UA) Negative Urine Ketones Negative Urine Blood Negative Urine Nitrite Negative Urine Bilirubin Negative Urine Urobilinogen 0.2 Ur Leukocyte Esterase Negative HOSPITAL COURSE: Date of Admission:03/26/20 Date of Discharge: 03/28/20 Patient is a 44 year old male patient with past medical history of alcohol use disorder, polysubstance use, anxiety, depression, GERD, who presented to the ED with alcohol intoxication and diarrhea. Abdominal CT done which did not show any acute pathology. Patient was also started on Alcohol detox. Patient signed out AMA overnight. Minutes to complete discharge: 35 Discharge Summary Problems reviewed: Yes Reason For Visit: ALCOHOL DEPENDENCE WITH UNCOMPLICATED WITHDRAWAL Condition: Stable - Instructions Disposition: AGAINST MEDICAL ADVICE - Home Medications Comprehensive Discharge Medication List: Ambulatory Orders Zolpidem Tartrate [Ambien] 10 mg PO HS #30 tablet 09/08/15 Aspirin Coated [Ecotrin -] 81 mg PO DAILY tablet.ec 03/13/20 Cyanocobalamin [Vitamin B12 -] 100 mcg PO DAILY tablet 03/13/20 Folic Acid - 1 mg PO DAILY tablet 03/13/20 Quetiapine Fumarate [Seroquel -] 100 mg PO DAILY 03/13/20 Thiamine HCl [Vitamin B1 -] 100 mg PO DAILY tablet 03/13/20 traZODone HCL [Desyrel -] 50 mg PO HS 03/13/20 This patient is new to me today: No Emergency Visit: Yes ED Registration Date: 03/26/20 Care time: The patient presented to the Emergency Department on the above date and was hospitalized for further evaluation of their emergent condition. Critical Care patient: No - Discharge Referral Referred to [facility] No ATTENDING PHYSICIAN STATEMENT I saw and evaluated the patient. I reviewed the resident's note and discussed the case with the resident. I agree with the resident's findings and plan as documented. SUBJECTIVE: OBJECTIVE: ASSESSMENT AND PLAN:
[2020-03-28] MEDS ORDERED: THIAMINE HCL 100 MG TABLET (FP) PO SCH (10:00)
[2020-03-28] MEDS ORDERED: CYANOCOBALAMIN (VITAMIN B-12) 100 MCG TABLET PO SCH (10:00)
[2020-03-28] MEDS ORDERED: ASPIRIN COATED 81 MG TABLET.EC PO SCH (10:00)
[2020-03-28] MEDS ORDERED: FOLIC ACID 1 MG TABLET (FP) PO SCH (10:00)
[2020-03-28] MEDS ORDERED: QUEtiapine FUMARATE 100 MG TABLET (FP) PO SCH (10:00)
[2020-03-29] MEDS ORDERED: chlordiazePOXIDE HCL 10 MG CAPSULE PO ONE (05:00)
== END 2020-03-28 05:00 | disposition left against medical advice (07) | DRG 770 ==
LOC: JER 17:52 → JERBED 20:46 → J8W 03-27 00:44
PROVIDERS: ADMIT Internal Medicine
PROC: HZ2ZZZZ Detoxification Services for Substance Abuse Treatment (ICD-10-PCS; principal; 2020-03-26)
DX: F10.239 Alcohol dependence with withdrawal, unspecified (principal); F14.10 Cocaine abuse, uncomplicated; F12.10 Cannabis abuse, uncomplicated; F31.9 Bipolar disorder, unspecified; K21.9 Gastro-esophageal reflux disease without esophagitis; Z68.34 Body mass index [BMI] 34.0-34.9, adult; E66.9 Obesity, unspecified; K29.20 Alcoholic gastritis without bleeding; E86.0 Dehydration; I10 Essential (primary) hypertension; F43.10 Post-traumatic stress disorder, unspecified; R10.9 Unspecified abdominal pain; F41.8 Other specified anxiety disorders; R07.89 Other chest pain; R19.7 Diarrhea, unspecified
CPT/HCPCS: 36415; 71045-TC-FY; 74176-TC; 80053; 81003; 82550; 82553; 82607; 82746; 83690; 83735; 84100; 84484; 85025; 85027; 93005; 93010; 99285-25; Q9967; U0003

== ENCOUNTER 2020-03-28 21:29 | Emergency (ER) | payer OTHER ==
[2020-03-28 21:38] VITALS: TEMP 98.4
[2020-03-28] MEDS ORDERED: LIDOCAINE VISCOUS 2% ORAL/TOP 20 ML UNIT-DOSE CUP MM ONE (22:02)
[2020-03-28] MEDS ORDERED: LACTATED RINGERS SOLUTION 1000 ML INFUS.BAG IV ONE (22:02)
[2020-03-28] MEDS ORDERED: ACETAMINOPHEN 1000 MG/100 ML VIAL (NON FORMULARY) IVPB ONE (22:02)
[2020-03-28] MEDS ORDERED: MAG HYDROX/AL HYDROX/SIMETH -MYLANTA- ORAL SUSPENSION PO ONE (22:02)
[2020-03-28] MEDS ORDERED: FAMOTIDINE 20 MG/50 ML IVPB 20 MG/50 ML MG IVPB ONE ×2 (22:02→22:23)
--- NOTE | 2020-03-28 22:04 | PDOC ---
History of Present Illness - General Chief Complaint: Pain Stated Complaint: ABDOMINAL PAIN Time Seen by Provider: 03/28/20 21:34 - History of Present Illness Initial Comments: Andrew Vieira is a 44 y/o male with PMH significant for alcohol use disorder, cocaine use disorder, depression, anxiety, GERD, presenting today with abdominal pain. He left the hospital earlier today AMA. Reports that he drank two fifths of vodka and snorted $50 worth of cocaine this afternoon around 3pm. Reports that he has had intermittent abdominal pain afterwards and vomited x1. Pt had labwork done yesterday and no acute findings on CT abdomen. Denies chest pain/shortness of breath/headache/dizziness/diarrhea/blood in stool or vomit. Past History - Medical History Allergies/Adverse Reactions: Allergies Allergy/AdvReac Type Severity Reaction Status Date / Time No Known Drug Allergies Allergy Verified 03/28/20 21:38 pollen extracts AdvReac Verified 03/28/20 21:38 Home Medications: Ambulatory Orders Zolpidem Tartrate [Ambien] 10 mg PO HS #30 tablet 09/08/15 Aspirin Coated [Ecotrin -] 81 mg PO DAILY tablet.ec 03/13/20 Cyanocobalamin [Vitamin B12 -] 100 mcg PO DAILY tablet 03/13/20 Folic Acid - 1 mg PO DAILY tablet 03/13/20 Quetiapine Fumarate [Seroquel -] 100 mg PO DAILY 03/13/20 Thiamine HCl [Vitamin B1 -] 100 mg PO DAILY tablet 03/13/20 traZODone HCL [Desyrel -] 50 mg PO HS 03/13/20 Anemia: No Asthma: No Cancer: No Cardiac Disorders: No CVA: No COPD: No CHF: No Dementia: No Diabetes: No GI Disorders: Yes (GERD) Disorders: No HTN: No Hypercholesterolemia: No Kidney Stones: No Liver Disease: No Seizures: No Thyroid Disease: No - Surgical History Abdominal Surgery: No Appendectomy: No Cardiac Surgery: No Cholecystectomy: No Lung Surgery: No Neurologic Surgery: No Orthopedic Surgery: Yes (R mandible fx) - Reproductive History Testicular Surgery: No - Psycho-Social/Smoking History Smoking History: Never smoked Have you smoked in the past 12 months: No Number of Cigarettes Smoked Daily: 3 Cigars Per Day: 0 Information on smoking cessation initiated: No 'Breaking Loose' booklet given: 03/10/20 - Substance Abuse Hx (Audit-C & DAST Scrn) How often the patient has a drink containing alcohol: Monthly or less Number of drinks the patient has on a typical day: 1 or 2 How often the patient has six or more drinks on one occasion: Less than monthly Score: In Men: 4 or > Positive; In Women: 3 or > Positive: 2 Screen Result (Pos requires Nsg. Audit-10AR): Negative In the last yr the pt used illegal drug/Rx for NonMed reason: No Score: Yes response is considered Positive: 0 Screen Result (Positive result requires Nsg. DAST-10): Negative Abd/GI Specific PMHX - Complaint Specific PMHX Hepatitis: No Pancreatitis: No Review of Systems - Review of Systems Comments:: GENERAL/CONSTITUTIONAL: No fever or chills. No weakness._ HEAD, EYES, EARS, NOSE AND THROAT: No change in vision. No change in hearing. No sore throat._ CARDIOVASCULAR: No chest pain or shortness of breath_ RESPIRATORY: Denies cough, hemoptysis_ GASTROINTESTINAL: Reports abdominal pain and vomiting. GENITOURINARY: No dysuria, frequency, or change in urination._ MUSCULOSKELETAL: No joint or muscle swelling or pain. No neck or back pain._ SKIN: No rash_ NEUROLOGIC: No headache, vertigo, loss of consciousness, or change in strength/s ensation._ ENDOCRINE: No increased thirst. No abnormal weight change_ HEMATOLOGIC/LYMPHATIC: No anemia, easy bleeding, or history of blood clots._ ALLERGIC/IMMUNOLOGIC: No hives or skin allergy._ *Physical Exam - Vital Signs Last Vital Signs Temp Pulse Resp BP Pulse Ox 98.4 F 95 H 20 147/86 96 03/28/20 21:34 03/28/20 21:34 03/28/20 21:34 03/28/20 21:34 03/28/20 21:34 - Physical Exam GENERAL: Awake, alert, and oriented to person/place/time, in no acute distress_ HEAD: No signs of trauma, normocephalic, atraumatic _ EYES: PERRLA, EOMI, sclera anicteric, conjunctiva clear_ ENT: Hearing grossly normal, nares patent, oropharynx clear without exudates. No uvular deviation. Moist mucosa_ NECK: Normal ROM, supple, no lymphadenopathy, JVD, or masses_ LUNGS: No distress, speaks in full sentences, clear to auscultation bilaterally _ HEART: Regular rate and rhythm, normal S1 and S2, no murmurs appreciated, peripheral pulses normal and equal bilaterally._ ABDOMEN: Soft, nontender, normoactive bowel sounds. No guarding, no rebound. No masses_ EXTREMITIES: Normal inspection, Normal range of motion, no edema. No clubbing or cyanosis_ NEUROLOGICAL: Cranial nerves II through XII grossly intact. Normal speech, normal gait, no focal sensorimotor deficits _ SKIN: Warm, Dry, normal turgor, no rashes or lesions noted_ ED Treatment Course - LABORATORY CBC & Chemistry Diagram: 03/28/20 22:00 03/28/20 22:00 Medical Decision Making - Medical Decision Making 03/28/20 22:03 44M hx of alcohol use disorder, cocaine use disorder, depression, anxiety, GERD, presenting today with abdominal pain. Left AMA from this hospital earlier today. Drank vodka and snorted cocaine a few hours [employer]. Abdomen soft and nontender. Lab work and CT abd during hospitalization WNL. Pt seen multiple times by social work with plan for detox at outside facilities but has not been able to follow through. -cbc, cmp, lipase -tylenol, GI cocktail 03/28/20 23:45 Labs reviewed. Laboratory Last Values WBC 6.5 K/mm3 (4.0-10.0) 03/28/20 22:00 RBC 4.75 M/mm3 (4.00-5.60) 03/28/20 22:00 Hgb 14.6 GM/dL (11.7-16.9) 03/28/20 22:00 Hct 42.7 % (35.4-49) 03/28/20 22:00 MCV 89.9 fl (80-96) 03/28/20 22:00 MCH 30.7 pg (25.7-33.7) 03/28/20 22:00 MCHC 34.2 g/dl (32.0-35.9) 03/28/20 22:00 RDW 14.5 % (11.9-15.9) 03/28/20 22:00 Plt Count 256 K/MM3 (134-434) D 03/28/20 22:00 MPV 7.5 fl (7.5-11.1) 03/28/20 22:00 Absolute Neuts (auto) 4.0 K/mm3 (1.5-8.0) 03/28/20 22:00 Neutrophils % 60.6 % (42.8-82.8) D 03/28/20 22:00 Lymphocytes % 33.7 % (8-40) D 03/28/20 22:00 Monocytes % 4.8 % (3.8-10.2) 03/28/20 22:00 Eosinophils % 0.1 % (0-4.5) D 03/28/20 22:00 Basophils % 0.8 % (0-2.0) 03/28/20 22:00 Nucleated RBC % 0 % (0-0) 03/28/20 22:00 Sodium 139 mmol/L (136-145) 03/28/20 22:00 Potassium 3.5 mmol/L (3.5-5.1) 03/28/20 22:00 Chloride 102 mmol/L (98-107) 03/28/20 22:00 Carbon Dioxide 23 mmol/L (21-32) 03/28/20 22:00 Anion Gap 14 MMOL/L (8-16) 03/28/20 22:00 BUN 5.8 mg/dL (7-18) L 03/28/20 22:00 Creatinine 1.0 mg/dL (0.55-1.3) 03/28/20 22:00 Est GFR (CKD-EPI)AfAm 105.62 03/28/20 22:00 Est GFR (CKD-EPI)NonAf 91.13 03/28/20 22:00 Random Glucose 124 mg/dL (74-106) H 03/28/20 22:00 Calcium 8.3 mg/dL (8.5-10.1) L 03/28/20 22:00 Total Bilirubin 0.2 mg/dL (0.2-1) 03/28/20 22:00 AST 33 U/L (15-37) 03/28/20 22:00 ALT 35 U/L (13-61) 03/28/20 22:00 Alkaline Phosphatase 88 U/L (45-117) 03/28/20 22:00 Total Protein 8.0 g/dl (6.4-8.2) 03/28/20 22:00 Albumin 3.9 g/dl (3.4-5.0) 03/28/20 22:00 Lipase 133 U/L (73-393) 03/28/20 22:00 Pt reassessed. Abdomen soft and non tender. Clinically sober and safe for discharge. No lateral nystagmus bilaterally. No slurred speech. Able to ambulate with a steady gait. Plan to d/c home with PCP f/u for rehab. All questions answered. Return precautions given. Pt verbalized understanding and agreement with plan. Discharge - Discharge Information Problems reviewed: Yes Clinical Impression/Diagnosis: GERD (gastroesophageal reflux disease), Alcohol dependence Condition: Fair Disposition: HOME - Admission No - Follow up/Referral Referrals: Terrell Farooq MD [Primary Care Provider] - - Patient Discharge Instructions Patient Printed Discharge Instructions: DI for Alcohol Abuse, DI for Cocaine Use Disorder Additional Instructions: Please make a follow up appointment with your primary care doctor this week to discuss rehab options (referral provided). Please try to decrease or eliminate your alcohol and cocaine usage. If you experience any new, worsening, or concerning symptoms, including chest pain, shortness of breath, nausea, vomiting, worsening abdominal pain, or any other concerns, please return to the emergency room. - Post Discharge Activity
[2020-03-28 22:18] VITALS: PULSE 91
[2020-03-28] MEDS ORDERED: MAG HYDROX/AL HYDROX/SIMETH 30 ML UNIT-DOSE CUP ONE (22:22)
[2020-03-28] MEDS ORDERED: LIDOCAINE VISCOUS 2% ORAL/TOP 20 ML UNIT-DOSE CUP ONE (22:22)
[2020-03-28] MEDS ORDERED: ACETAMINOPHEN INJECTION 100 ML IVPB ONE (22:22)
[2020-03-28 22:25] LABS: BASO % 0.8 % (0-2.0); EOS % 0.1 % (0-4.5); HEMATOCRIT 42.7 % (35.4-49); HEMOGLOBIN 14.6 GM/dL (11.7-16.9); LYMPH % 33.7 % (8-40); MCH 30.7 pg (25.7-33.7); MCHC 34.2 g/dl (32.0-35.9); MEAN CELL VOLUME 89.9 fl (80-96); MEAN PLT VOLUME 7.5 fl (7.5-11.1); MONO % 4.8 % (3.8-10.2); NEUT % 60.6 % (42.8-82.8); PLATELET COUNT 256 K/MM3 (134-434); RBC 4.75 M/mm3 (4.00-5.60); RDW 14.5 % (11.9-15.9); WHITE BLOOD COUNT 6.5 K/mm3 (4.0-10.0)
--- NOTE | 2020-03-28 22:27 | PDOC ---
Documentation entered by Maricruz Torres SCRIBE, acting as scribe for Gilda Neville MD. Gilda Neville MD: This documentation has been prepared by the boazibeBrian Ana, SCRIBE, under my direction and personally reviewed by me in its entirety. I confirm that the documentation accurately reflects all work, treatment, procedures, and medical decision making performed by me. Attending Attestation - Resident Resident Name: Jelani Desai - ED Attending Attestation I have performed the following: I have examined & evaluated the patient, The case was reviewed & discussed with the resident, I agree w/resident's findings & plan, Exceptions are as noted - HPI HPI: 03/28/20 21:39 Patient is a 44 year old male with a significant past medical history of alcohol/ substance abuse who presents to the ED with abdominal pain. Patient was admitted here earlier this week 03/26 and left this morning AMA. Patient denies: Allergies: NKDA; Pollen extracts - Physicial Exam PE: 03/28/20 21:52 wnwd ,alert 44 yo male who drank alcohol and now is complaining of epigastric discomfort 03/28/20 22:12 wnwd 44 yo male with epigastric pain head ncat neck no jvd lungs no wheezing cvs [id number] abdomen epigastric tenderness , no rebound no flank pain skin warm and dry extremities no deformities neuro axox3 03/28/20 22:23 - Medical Decision Making 03/28/20 22:27 this 44 yo male left our hospital earlier today and drank alcohol today. He has c/o epigastric pain 03/28/20 23:45 labs reviewed cbc wnl chemistries LFTs normal. normal kidney function 03/29/20 00:23 IMP: GERD,etoh intake plan d/c home Discharge - Discharge Information Problems reviewed: Yes Clinical Impression/Diagnosis: GERD (gastroesophageal reflux disease), Alcohol dependence Condition: Fair - Follow up/Referral Referrals: Terrell Farooq MD [Primary Care Provider] - - Patient Discharge Instructions Patient Printed Discharge Instructions: DI for Alcohol Abuse, DI for Cocaine Use Disorder Additional Instructions: Please make a follow up appointment with your primary care doctor this week to discuss rehab options (referral provided). Please try to decrease or eliminate your alcohol and cocaine usage. If you experience any new, worsening, or concerning symptoms, including chest pain, shortness of breath, nausea, vomiting, worsening abdominal pain, or any other concerns, please return to the emergency room. - Post Discharge Activity
[2020-03-28 22:42] LABS: ALBUMIN 3.9 g/dl (3.4-5.0); BILIRUBIN,TOTAL 0.2 mg/dL (0.2-1); BLOOD UREA NITROGEN 5.8 mg/dL (7-18); CALCIUM 8.3 mg/dL (8.5-10.1); POTASSIUM 3.5 mmol/L (3.5-5.1)
[2020-03-28 22:54] VITALS: BP 123/67; BMI 31.5
== END 2020-03-29 05:38 | disposition home or self-care (01) ==
LOC: JER 21:29
PROC: 3E033NZ Introduction of Analgesics, Hypnotics, Sedatives into Peripheral Vein, Percutaneous Approach (ICD-10-PCS; principal; 2020-03-28)
PROC: 3E033GC Introduction of Other Therapeutic Substance into Peripheral Vein, Percutaneous Approach (ICD-10-PCS; 2020-03-28)
DX: K21.9 Gastro-esophageal reflux disease without esophagitis (principal); F10.20 Alcohol dependence, uncomplicated
CPT/HCPCS: 36415; 80053; 83690; 85025; 99285-25; J0131

== ENCOUNTER 2020-08-31 21:25 | Emergency (ER) | payer OTHER ==
[2020-08-31 21:31] VITALS: BMI 25.8
[2020-08-31 22:21] LABS: BASO % 0.5 % (0-2.0); HEMATOCRIT 42.2 % (35.4-49); HEMOGLOBIN 14.3 GM/dL (11.7-16.9); LYMPH % 28.1 % (8-40); MCH 31.9 pg (25.7-33.7); MEAN CELL VOLUME 93.8 fl (80-96); MEAN PLT VOLUME 7.8 fl (7.5-11.1); MONO % 3.2 % (3.8-10.2); NEUT % 68.2 % (42.8-82.8); PLATELET COUNT 213 K/MM3 (134-434); RDW 15.1 % (11.9-15.9); WHITE BLOOD COUNT 3.9 K/mm3 (4.0-10.0)
[2020-08-31 22:23] LABS: VENOUS O2 SATURATION 45.4 % (70-80); VENOUS PCO2 51.9 mmHg (38-52); VENOUS PH 7.371 (7.310-7.410)
[2020-08-31 22:52] LABS: ALBUMIN 3.9 g/dl (3.4-5.0); CALCIUM 8.2 mg/dL (8.5-10.1)
[2020-08-31 22:56] LABS: CREATININE 1.2 mg/dL (0.55-1.3)
[2020-08-31 22:57] LABS: BILIRUBIN,TOTAL 0.2 mg/dL (0.2-1); TOT PROT 7.8 g/dl (6.4-8.2)
[2020-08-31 23:32] LABS: BLOOD UREA NITROGEN 2.6 mg/dL (7-18)
[2020-09-01] MEDS ORDERED: SODIUM CHLORIDE 0.9% 500 ML INFUS.BAG IV ONE (00:06)
[2020-09-01] MEDS ORDERED: MIDAZOLAM HCL 2 MG/2 ML SINGLE DOSE VIAL IVPUSH ONE ×3 (00:31→03:06)
[2020-09-01] MEDS ORDERED: KCL 10 MEQ IVPB 10 MEQ/100 ML INFUS.BAG IVPB ONE (00:46)
[2020-09-01] MEDS ORDERED: MIDAZOLAM HCL 2 MG/2 ML SINGLE DOSE VIAL ONE ×3 (00:58→03:54)
[2020-09-01] MEDS: KCL 10 MEQ IVPB 10 MEQ/100 ML INFUS.BAG IVPB SCH ×3 (01:00→03:30)
[2020-09-01] MEDS ORDERED: LORazepam 2 MG/ML SDV VIAL IVPUSH ONE (02:07)
[2020-09-01] MEDS ORDERED: LORazepam 2 MG/ML SDV VIAL ONE (02:09)
[2020-09-01] MEDS ORDERED: DEXTROSE 5%-0.45% SALINE 1,000 ML IV SCH (02:30)
[2020-09-01] MEDS ORDERED: FOLIC ACID INJECTION - 1 MG, THIAMINE HCL 100 MG, MULTIVIT INJECTION ADULT 10 ML in SOD... IVPB ONE (02:37)
[2020-09-01] MEDS ORDERED: traZODone HCL 50 MG TABLET (FP) PO ONE (03:11)
[2020-09-01] MEDS ORDERED: QUEtiapine FUMARATE 100 MG TABLET (FP) PO ONE (03:11)
[2020-09-01] MEDS ORDERED: QUEtiapine FUMARATE 100 MG TABLET (FP) ONE (03:24)
[2020-09-01 08:02] LABS: URINE APPEARANCE CLEAR; URINE BILIRUBIN NEGATIVE (NEGATIVE); URINE COLOR YELLOW; URINE GLUCOSE (UA) NEGATIVE (NEGATIVE); URINE KETONE NEGATIVE (NEGATIVE); URINE LEUK ESTERASE NEGATIVE (NEGATIVE); URINE NITRITE NEGATIVE (NEGATIVE); URINE PROTEIN TRACE (NEGATIVE); URINE UROBILINOGEN 0.2 mg/dL (0.2-1.0)
[2020-09-01 08:10] LABS: URINE BARBITURATES NEGATIVE ng/ml (CUTOFF=200)
[2020-09-01 08:11] LABS: COCAINE, UR NEGATIVE ng/ml (CUTOFF=300); OPIATES, URI NEGATIVE ng/ml (CUTOFF=300); PHENCYCLIDINE,URINE NEGATIVE ng/ml (CUTOFF=25)
[2020-09-01 08:31] LABS: METHADONE, UR NEGATIVE ng/ml (CUTOFF=300); URINE AMPHETAMINES NEGATIVE ng/ml (CUTOFF=500)
[2020-09-01 08:33] LABS: URINE BENZODIAZEPINES POSITIVE ng/ml (CUTOFF=200)
[2020-09-01 10:40] VITALS: BP 125/79; PULSE 89; TEMP 98
== END 2020-09-01 11:07 | disposition home or self-care (01) ==
LOC: JER 21:25
DX: F10.920 Alcohol use, unspecified with intoxication, uncomplicated (principal)
CPT/HCPCS: 36415; 70450-TC; 72125-TC; 80053; 80307; 81003; 82550; 82553; 82803; 83930; 85025; 93005; 93010; 99285-25

== ENCOUNTER 2020-09-01 15:52 | Emergency (ER) | payer OTHER ==
[2020-09-01 16:11] VITALS: BMI 24.2
[2020-09-01] MEDS ORDERED: LACTATED RINGERS SOLUTION 1000 ML INFUS.BAG IV ONE (18:00)
[2020-09-01 18:38] LABS: VENOUS BASE EXCESS 0.7 mmol/L (-2-2); VENOUS O2 SATURATION 75.6 % (70-80); VENOUS PCO2 52.5 mmHg (38-52); VENOUS PH 7.338 (7.310-7.410)
[2020-09-01 18:57] LABS: BASO % 0.9 % (0-2.0); EOS % 0.1 % (0-4.5); HEMATOCRIT 43.5 % (35.4-49); HEMOGLOBIN 14.4 GM/dL (11.7-16.9); LYMPH % 24.3 % (8-40); MCH 31.4 pg (25.7-33.7); MEAN CELL VOLUME 94.9 fl (80-96); MEAN PLT VOLUME 7.8 fl (7.5-11.1); MONO % 3.5 % (3.8-10.2); NEUT % 71.2 % (42.8-82.8); PLATELET COUNT 195 K/MM3 (134-434); RBC 4.58 M/mm3 (4.00-5.60); RDW 14.9 % (11.9-15.9); WHITE BLOOD COUNT 4.9 K/mm3 (4.0-10.0)
[2020-09-01 19:10] LABS: URINE APPEARANCE CLOUDY; URINE BILIRUBIN NEGATIVE (NEGATIVE); URINE COLOR YELLOW; URINE GLUCOSE (UA) NEGATIVE (NEGATIVE); URINE KETONE NEGATIVE (NEGATIVE); URINE LEUK ESTERASE NEGATIVE (NEGATIVE); URINE NITRITE NEGATIVE (NEGATIVE); URINE PROTEIN NEGATIVE (NEGATIVE); URINE UROBILINOGEN 0.2 mg/dL (0.2-1.0)
[2020-09-01 19:29] LABS: ALBUMIN 3.9 g/dl (3.4-5.0); CALCIUM 8.5 mg/dL (8.5-10.1)
[2020-09-01 19:34] LABS: BILIRUBIN,TOTAL 0.3 mg/dL (0.2-1); TOT PROT 7.6 g/dl (6.4-8.2)
[2020-09-01] MEDS ORDERED: HALOPERIDOL LACTATE 5 MG/ML IM ONE (21:53)
[2020-09-01] MEDS ORDERED: LORazepam 2 MG/ML SDV VIAL IM ONE (22:00)
[2020-09-01] MEDS ORDERED: chlordiazePOXIDE HCL 25 MG CAPSULE PO ONE (23:45)
[2020-09-02 00:02] VITALS: BP 136/79; PULSE 87; TEMP 97.9
[2020-09-02] MEDS ORDERED: chlordiazePOXIDE HCL 25 MG CAPSULE ONE (01:23)
[2020-09-02 04:59] LABS: CALCIUM 7.8 mg/dL (8.5-10.1)
[2020-09-02 05:00] LABS: ALBUMIN 3.6 g/dl (3.4-5.0); BLOOD UREA NITROGEN 8.2 mg/dL (7-18)
[2020-09-02 05:04] LABS: BILIRUBIN,TOTAL 0.3 mg/dL (0.2-1); TOT PROT 6.9 g/dl (6.4-8.2)
== END 2020-09-02 07:25 | disposition home or self-care (01) ==
LOC: JER 15:52
DX: F10.929 Alcohol use, unspecified with intoxication, unspecified (principal)
CPT/HCPCS: 36415; 71045-TC-FY; 80053; 80307; 81003; 82010; 82803; 83690; 83930; 85025; 93005; 93010; 99285-25

== ENCOUNTER 2020-09-07 12:13 | Inpatient (IN) | payer OTHER ==
[2020-09-07] MEDS ORDERED: MAGNESIUM CITRATE 300 ML BOTTLE PO PRN (13:24)
[2020-09-07] MEDS ORDERED: MENTHOL/PHENOL 1 EACH UD MM PRN (13:24)
[2020-09-07] MEDS ORDERED: NICOTINE POLACRILEX 2 MG GUM BUC PRN (13:24)
[2020-09-07] MEDS ORDERED: LOPERAMIDE HCL 2 MG CAPSULE PO PRN (13:24)
[2020-09-07] MEDS ORDERED: P-EPHED 60MG/TRIPROLIDI 2.5MG TABLET PO PRN (13:24)
[2020-09-07] MEDS ORDERED: guaiFENesin 200 MG/10 ML 10 ML UNIT-DOSE CUPS PO PRN (13:24)
[2020-09-07] MEDS ORDERED: MAGNESIUM HYDROX 2400MG/30ML ORAL SUSPENSION 30 ML CUP PO PRN (13:24)
[2020-09-07] MEDS ORDERED: ACETAMINOPHEN 325 MG TABLET (FP) PO PRN (13:24)
[2020-09-07] MEDS: hydrOXYzine PAMOATE 25 MG CAPSULE (FP) PO PRN ×2 (15:28→21:54)
[2020-09-07] MEDS: THIAMINE HCL 100 MG TABLET (FP) PO SCH (21:54)
[2020-09-07] MEDS: QUEtiapine FUMARATE 100 MG TABLET (FP) PO SCH (21:54)
[2020-09-07] MEDS: MELATONIN 5 MG TABLETS PO SCH (21:54)
[2020-09-07] MEDS ORDERED: traZODone HCL 100 MG TABLET (FP) PO SCH (22:00)
[2020-09-08] MEDS ORDERED: MASKS NR ONE (06:12)
[2020-09-08] MEDS: IBUPROFEN 400 MG TABLET (FP) PO PRN (06:14)
[2020-09-08] MEDS: hydrOXYzine PAMOATE 25 MG CAPSULE (FP) PO PRN ×3 (06:14→21:20)
[2020-09-08] MEDS: PRENATAL VITAMINS W/ FOLIC ACID TABLET (FP) PO SCH (10:32)
[2020-09-08] MEDS: NICOTINE 7 MG/24 HOURS TOPICAL PATCH TD SCH (10:33)
[2020-09-08] MEDS: PANTOPRAZOLE 40 MG TABLET PO SCH (10:34)
[2020-09-08] MEDS: QUEtiapine FUMARATE 100 MG TABLET (FP) PO SCH (10:34)
[2020-09-08] MEDS ORDERED: QUEtiapine FUMARATE 100 MG TABLET (FP) PO ONE (11:16)
[2020-09-08] MEDS: METHOCARBAMOL 500 MG TABLET PO PRN (21:20)
[2020-09-08] MEDS: MELATONIN 5 MG TABLETS PO SCH (21:20)
[2020-09-08] MEDS: THIAMINE HCL 100 MG TABLET (FP) PO SCH (21:20)
[2020-09-08] MEDS: QUEtiapine FUMARATE 200 MG TABLET PO SCH (21:20)
[2020-09-08] MEDS: traZODone HCL 50 MG TABLET (FP) PO SCH (21:20)
[2020-09-09] MEDS: hydrOXYzine PAMOATE 25 MG CAPSULE (FP) PO PRN (06:54)
[2020-09-09] MEDS: METHOCARBAMOL 500 MG TABLET PO PRN (06:54)
[2020-09-09] MEDS: PRENATAL VITAMINS W/ FOLIC ACID TABLET (FP) PO SCH (10:05)
[2020-09-09] MEDS: QUEtiapine FUMARATE 200 MG TABLET PO SCH ×2 (10:05→22:04)
[2020-09-09] MEDS: PANTOPRAZOLE 40 MG TABLET PO SCH (10:06)
[2020-09-09] MEDS: NICOTINE 7 MG/24 HOURS TOPICAL PATCH TD SCH (10:06)
[2020-09-09] MEDS: THIAMINE HCL 100 MG TABLET (FP) PO SCH (22:03)
[2020-09-09] MEDS: traZODone HCL 50 MG TABLET (FP) PO SCH (22:03)
[2020-09-09] MEDS: MELATONIN 5 MG TABLETS PO SCH (22:04)
[2020-09-10] MEDS: PRENATAL VITAMINS W/ FOLIC ACID TABLET (FP) PO SCH (09:52)
[2020-09-10] MEDS: PANTOPRAZOLE 40 MG TABLET PO SCH (09:53)
[2020-09-10] MEDS: NICOTINE 7 MG/24 HOURS TOPICAL PATCH TD SCH (09:53)
[2020-09-10] MEDS: QUEtiapine FUMARATE 200 MG TABLET PO SCH ×2 (09:53→22:06)
[2020-09-10] MEDS: MAG HYDROX/AL HYDROX/SIMETH 30 ML UNIT-DOSE CUP PO PRN (09:54)
[2020-09-10] MEDS: MELATONIN 5 MG TABLETS PO SCH (22:06)
[2020-09-10] MEDS: traZODone HCL 50 MG TABLET (FP) PO SCH (22:06)
[2020-09-10] MEDS: THIAMINE HCL 100 MG TABLET (FP) PO SCH (22:06)
[2020-09-11] MEDS: PRENATAL VITAMINS W/ FOLIC ACID TABLET (FP) PO SCH (10:12)
[2020-09-11] MEDS: NICOTINE 7 MG/24 HOURS TOPICAL PATCH TD SCH (10:12)
[2020-09-11] MEDS: hydrOXYzine PAMOATE 25 MG CAPSULE (FP) PO PRN ×2 (10:12→21:05)
[2020-09-11] MEDS: PANTOPRAZOLE 40 MG TABLET PO SCH (10:12)
[2020-09-11] MEDS: QUEtiapine FUMARATE 200 MG TABLET PO SCH ×2 (10:12→21:05)
[2020-09-11] MEDS: MAG HYDROX/AL HYDROX/SIMETH 30 ML UNIT-DOSE CUP PO PRN (18:23)
[2020-09-11] MEDS: traZODone HCL 50 MG TABLET (FP) PO SCH (21:05)
[2020-09-11] MEDS: MELATONIN 5 MG TABLETS PO SCH (21:05)
[2020-09-11] MEDS: THIAMINE HCL 100 MG TABLET (FP) PO SCH (21:05)
[2020-09-11] MEDS: METHOCARBAMOL 500 MG TABLET PO PRN (21:05)
[2020-09-12] MEDS: PANTOPRAZOLE 40 MG TABLET PO SCH (10:22)
[2020-09-12] MEDS: PRENATAL VITAMINS W/ FOLIC ACID TABLET (FP) PO SCH (10:22)
[2020-09-12] MEDS: hydrOXYzine PAMOATE 25 MG CAPSULE (FP) PO PRN (10:22)
[2020-09-12] MEDS: NICOTINE 7 MG/24 HOURS TOPICAL PATCH TD SCH (10:22)
[2020-09-12] MEDS: QUEtiapine FUMARATE 200 MG TABLET PO SCH ×2 (10:22→21:45)
[2020-09-12] MEDS: MAG HYDROX/AL HYDROX/SIMETH 30 ML UNIT-DOSE CUP PO PRN (10:47)
[2020-09-12] MEDS: traZODone HCL 100 MG TABLET (FP) PO SCH (21:45)
[2020-09-12] MEDS: THIAMINE HCL 100 MG TABLET (FP) PO SCH (21:45)
[2020-09-12] MEDS: busPIRone HCL 5 MG TABLET PO PRN (21:45)
[2020-09-12] MEDS: METHOCARBAMOL 500 MG TABLET PO PRN (21:45)
[2020-09-12] MEDS: PRAZOSIN HCL 1 MG CAPSULE PO SCH (21:59)
[2020-09-13] MEDS: QUEtiapine FUMARATE 200 MG TABLET PO SCH ×2 (10:45→21:03)
[2020-09-13] MEDS: PRENATAL VITAMINS W/ FOLIC ACID TABLET (FP) PO SCH (10:45)
[2020-09-13] MEDS: PANTOPRAZOLE 40 MG TABLET PO SCH (10:45)
[2020-09-13] MEDS: NICOTINE 7 MG/24 HOURS TOPICAL PATCH TD SCH (10:45)
[2020-09-13] MEDS: busPIRone HCL 5 MG TABLET PO PRN ×2 (10:45→21:05)
[2020-09-13] MEDS: MAG HYDROX/AL HYDROX/SIMETH 30 ML UNIT-DOSE CUP PO PRN (10:46)
[2020-09-13] MEDS: THIAMINE HCL 100 MG TABLET (FP) PO SCH (21:02)
[2020-09-13] MEDS: PRAZOSIN HCL 1 MG CAPSULE PO SCH (21:02)
[2020-09-13] MEDS: traZODone HCL 100 MG TABLET (FP) PO SCH (21:02)
[2020-09-14] MEDS: busPIRone HCL 5 MG TABLET PO PRN ×2 (08:49→21:08)
[2020-09-14] MEDS: PRENATAL VITAMINS W/ FOLIC ACID TABLET (FP) PO SCH (10:27)
[2020-09-14] MEDS: PANTOPRAZOLE 40 MG TABLET PO SCH (10:27)
[2020-09-14] MEDS: QUEtiapine FUMARATE 200 MG TABLET PO SCH ×2 (10:27→21:08)
[2020-09-14] MEDS: NICOTINE 7 MG/24 HOURS TOPICAL PATCH TD SCH (10:27)
[2020-09-14] MEDS: THIAMINE HCL 100 MG TABLET (FP) PO SCH (21:08)
[2020-09-14] MEDS: PRAZOSIN HCL 1 MG CAPSULE PO SCH (21:08)
[2020-09-14] MEDS: traZODone HCL 100 MG TABLET (FP) PO SCH (21:08)
[2020-09-15] MEDS: busPIRone HCL 5 MG TABLET PO PRN ×3 (06:26→21:10)
[2020-09-15] MEDS: METHOCARBAMOL 500 MG TABLET PO PRN (06:26)
[2020-09-15] MEDS: PANTOPRAZOLE 40 MG TABLET PO SCH (10:21)
[2020-09-15] MEDS: PRENATAL VITAMINS W/ FOLIC ACID TABLET (FP) PO SCH (10:21)
[2020-09-15] MEDS: NICOTINE 7 MG/24 HOURS TOPICAL PATCH TD SCH (10:21)
[2020-09-15] MEDS: QUEtiapine FUMARATE 200 MG TABLET PO SCH ×2 (10:21→21:08)
[2020-09-15] MEDS: THIAMINE HCL 100 MG TABLET (FP) PO SCH (21:07)
[2020-09-15] MEDS: PRAZOSIN HCL 1 MG CAPSULE PO SCH (21:08)
[2020-09-15] MEDS: traZODone HCL 100 MG TABLET (FP) PO SCH (21:08)
[2020-09-16] MEDS: busPIRone HCL 5 MG TABLET PO PRN ×2 (07:30→21:51)
[2020-09-16] MEDS: PRENATAL VITAMINS W/ FOLIC ACID TABLET (FP) PO SCH (10:27)
[2020-09-16] MEDS: QUEtiapine FUMARATE 200 MG TABLET PO SCH ×2 (10:28→21:51)
[2020-09-16] MEDS: NICOTINE 7 MG/24 HOURS TOPICAL PATCH TD SCH (10:28)
[2020-09-16] MEDS: PANTOPRAZOLE 40 MG TABLET PO SCH (10:28)
[2020-09-16] MEDS: THIAMINE HCL 100 MG TABLET (FP) PO SCH (21:51)
[2020-09-16] MEDS: METHOCARBAMOL 500 MG TABLET PO PRN (21:51)
[2020-09-16] MEDS: traZODone HCL 100 MG TABLET (FP) PO SCH (21:51)
[2020-09-16] MEDS: PRAZOSIN HCL 1 MG CAPSULE PO SCH (21:52)
[2020-09-17] MEDS: busPIRone HCL 5 MG TABLET PO PRN ×2 (06:04→21:06)
[2020-09-17] MEDS: METHOCARBAMOL 500 MG TABLET PO PRN ×2 (06:05→21:06)
[2020-09-17] MEDS ORDERED: MASKS NR ONE ×3 (06:27→18:30)
[2020-09-17] MEDS: QUEtiapine FUMARATE 200 MG TABLET PO SCH ×2 (10:08→21:06)
[2020-09-17] MEDS: PRENATAL VITAMINS W/ FOLIC ACID TABLET (FP) PO SCH (10:08)
[2020-09-17] MEDS: PANTOPRAZOLE 40 MG TABLET PO SCH (10:08)
[2020-09-17] MEDS: NICOTINE 7 MG/24 HOURS TOPICAL PATCH TD SCH (10:08)
[2020-09-17] MEDS: PRAZOSIN HCL 1 MG CAPSULE PO SCH (21:05)
[2020-09-17] MEDS: THIAMINE HCL 100 MG TABLET (FP) PO SCH (21:06)
[2020-09-17] MEDS: traZODone HCL 100 MG TABLET (FP) PO SCH (21:06)
[2020-09-18] MEDS: busPIRone HCL 5 MG TABLET PO PRN ×2 (06:08→21:26)
[2020-09-18] MEDS: PANTOPRAZOLE 40 MG TABLET PO SCH (10:11)
[2020-09-18] MEDS: PRENATAL VITAMINS W/ FOLIC ACID TABLET (FP) PO SCH (10:11)
[2020-09-18] MEDS: QUEtiapine FUMARATE 200 MG TABLET PO SCH ×2 (10:11→21:26)
[2020-09-18] MEDS: NICOTINE 7 MG/24 HOURS TOPICAL PATCH TD SCH (10:11)
[2020-09-18] MEDS: METHOCARBAMOL 500 MG TABLET PO PRN (21:26)
[2020-09-18] MEDS: traZODone HCL 100 MG TABLET (FP) PO SCH (21:26)
[2020-09-18] MEDS: THIAMINE HCL 100 MG TABLET (FP) PO SCH (21:26)
[2020-09-18] MEDS: PRAZOSIN HCL 1 MG CAPSULE PO SCH (21:27)
[2020-09-19] MEDS: IBUPROFEN 400 MG TABLET (FP) PO PRN (06:16)
[2020-09-19] MEDS: busPIRone HCL 5 MG TABLET PO PRN ×2 (06:16→21:26)
[2020-09-19] MEDS: QUEtiapine FUMARATE 200 MG TABLET PO SCH ×2 (09:48→21:26)
[2020-09-19] MEDS: PRENATAL VITAMINS W/ FOLIC ACID TABLET (FP) PO SCH (09:48)
[2020-09-19] MEDS: NICOTINE 7 MG/24 HOURS TOPICAL PATCH TD SCH (09:48)
[2020-09-19] MEDS: PANTOPRAZOLE 40 MG TABLET PO SCH (09:49)
[2020-09-19] MEDS: THIAMINE HCL 100 MG TABLET (FP) PO SCH (21:25)
[2020-09-19] MEDS: PRAZOSIN HCL 1 MG CAPSULE PO SCH (21:27)
[2020-09-19] MEDS: traZODone HCL 100 MG TABLET (FP) PO SCH (21:27)
[2020-09-20] MEDS: busPIRone HCL 5 MG TABLET PO PRN ×2 (06:15→21:32)
[2020-09-20] MEDS: METHOCARBAMOL 500 MG TABLET PO PRN ×2 (06:16→21:31)
[2020-09-20] MEDS: PRENATAL VITAMINS W/ FOLIC ACID TABLET (FP) PO SCH (09:22)
[2020-09-20] MEDS: PANTOPRAZOLE 40 MG TABLET PO SCH (09:22)
[2020-09-20] MEDS: NICOTINE 7 MG/24 HOURS TOPICAL PATCH TD SCH (09:22)
[2020-09-20] MEDS: QUEtiapine FUMARATE 200 MG TABLET PO SCH ×2 (09:23→21:32)
[2020-09-20] MEDS: MAG HYDROX/AL HYDROX/SIMETH 30 ML UNIT-DOSE CUP PO PRN (10:50)
[2020-09-20] MEDS: traZODone HCL 100 MG TABLET (FP) PO SCH (21:31)
[2020-09-20] MEDS: THIAMINE HCL 100 MG TABLET (FP) PO SCH (21:32)
[2020-09-20] MEDS: PRAZOSIN HCL 1 MG CAPSULE PO SCH (21:32)
[2020-09-21] MEDS: METHOCARBAMOL 500 MG TABLET PO PRN ×2 (06:07→21:38)
[2020-09-21] MEDS: busPIRone HCL 5 MG TABLET PO PRN ×2 (06:07→21:39)
[2020-09-21] MEDS: PRENATAL VITAMINS W/ FOLIC ACID TABLET (FP) PO SCH (09:52)
[2020-09-21] MEDS: QUEtiapine FUMARATE 200 MG TABLET PO SCH ×2 (09:52→21:39)
[2020-09-21] MEDS: NICOTINE 7 MG/24 HOURS TOPICAL PATCH TD SCH (09:52)
[2020-09-21] MEDS: PANTOPRAZOLE 40 MG TABLET PO SCH (09:52)
[2020-09-21] MEDS: THIAMINE HCL 100 MG TABLET (FP) PO SCH (21:38)
[2020-09-21] MEDS: traZODone HCL 100 MG TABLET (FP) PO SCH (21:38)
[2020-09-21] MEDS: PRAZOSIN HCL 1 MG CAPSULE PO SCH (21:38)
[2020-09-22] MEDS: busPIRone HCL 5 MG TABLET PO PRN ×2 (06:35→21:25)
[2020-09-22] MEDS: METHOCARBAMOL 500 MG TABLET PO PRN ×2 (06:35→21:25)
[2020-09-22] MEDS: QUEtiapine FUMARATE 200 MG TABLET PO SCH ×2 (09:33→21:25)
[2020-09-22] MEDS: PRENATAL VITAMINS W/ FOLIC ACID TABLET (FP) PO SCH (09:33)
[2020-09-22] MEDS: PANTOPRAZOLE 40 MG TABLET PO SCH (09:33)
[2020-09-22] MEDS: NICOTINE 7 MG/24 HOURS TOPICAL PATCH TD SCH (09:33)
[2020-09-22] MEDS: MAG HYDROX/AL HYDROX/SIMETH 30 ML UNIT-DOSE CUP PO PRN (09:34)
[2020-09-22] MEDS: traZODone HCL 100 MG TABLET (FP) PO SCH (21:24)
[2020-09-22] MEDS: THIAMINE HCL 100 MG TABLET (FP) PO SCH (21:25)
[2020-09-22] MEDS: PRAZOSIN HCL 1 MG CAPSULE PO SCH (21:25)
[2020-09-23] MEDS: METHOCARBAMOL 500 MG TABLET PO PRN ×2 (07:16→21:28)
[2020-09-23] MEDS: busPIRone HCL 5 MG TABLET PO PRN ×2 (07:16→21:29)
[2020-09-23] MEDS: QUEtiapine FUMARATE 200 MG TABLET PO SCH ×2 (09:41→21:28)
[2020-09-23] MEDS: NICOTINE 7 MG/24 HOURS TOPICAL PATCH TD SCH (09:41)
[2020-09-23] MEDS: PANTOPRAZOLE 40 MG TABLET PO SCH (09:41)
[2020-09-23] MEDS: PRENATAL VITAMINS W/ FOLIC ACID TABLET (FP) PO SCH (09:41)
[2020-09-23] MEDS: THIAMINE HCL 100 MG TABLET (FP) PO SCH (21:27)
[2020-09-23] MEDS: traZODone HCL 100 MG TABLET (FP) PO SCH (21:27)
[2020-09-23] MEDS: PRAZOSIN HCL 1 MG CAPSULE PO SCH (21:27)
[2020-09-24] MEDS: busPIRone HCL 5 MG TABLET PO PRN ×3 (06:28→21:59)
[2020-09-24] MEDS: METHOCARBAMOL 500 MG TABLET PO PRN ×2 (06:28→22:00)
[2020-09-24] MEDS: PANTOPRAZOLE 40 MG TABLET PO SCH (09:57)
[2020-09-24] MEDS: QUEtiapine FUMARATE 200 MG TABLET PO SCH ×2 (09:57→21:59)
[2020-09-24] MEDS: NICOTINE 7 MG/24 HOURS TOPICAL PATCH TD SCH (09:57)
[2020-09-24] MEDS: PRENATAL VITAMINS W/ FOLIC ACID TABLET (FP) PO SCH (09:57)
[2020-09-24] MEDS: THIAMINE HCL 100 MG TABLET (FP) PO SCH (21:58)
[2020-09-24] MEDS: traZODone HCL 100 MG TABLET (FP) PO SCH (21:59)
[2020-09-24] MEDS: PRAZOSIN HCL 1 MG CAPSULE PO SCH (22:00)
[2020-09-25] MEDS: busPIRone HCL 5 MG TABLET PO PRN (07:38)
[2020-09-25] MEDS: METHOCARBAMOL 500 MG TABLET PO PRN (07:38)
[2020-09-25] MEDS: PRENATAL VITAMINS W/ FOLIC ACID TABLET (FP) PO SCH (10:02)
[2020-09-25] MEDS: NICOTINE 7 MG/24 HOURS TOPICAL PATCH TD SCH (10:02)
[2020-09-25] MEDS: QUEtiapine FUMARATE 200 MG TABLET PO SCH ×2 (10:03→21:27)
[2020-09-25] MEDS: PANTOPRAZOLE 40 MG TABLET PO SCH (10:03)
[2020-09-25] MEDS: traZODone HCL 100 MG TABLET (FP) PO SCH (21:27)
[2020-09-25] MEDS: THIAMINE HCL 100 MG TABLET (FP) PO SCH (21:28)
[2020-09-25] MEDS: PRAZOSIN HCL 1 MG CAPSULE PO SCH (21:28)
[2020-09-26] MEDS: NICOTINE 7 MG/24 HOURS TOPICAL PATCH TD SCH (09:52)
[2020-09-26] MEDS: PRENATAL VITAMINS W/ FOLIC ACID TABLET (FP) PO SCH (09:52)
[2020-09-26] MEDS: PANTOPRAZOLE 40 MG TABLET PO SCH (09:52)
[2020-09-26] MEDS: QUEtiapine FUMARATE 200 MG TABLET PO SCH ×2 (09:53→21:36)
[2020-09-26] MEDS: busPIRone HCL 5 MG TABLET PO PRN ×2 (09:54→21:36)
[2020-09-26] MEDS: THIAMINE HCL 100 MG TABLET (FP) PO SCH (21:36)
[2020-09-26] MEDS: METHOCARBAMOL 500 MG TABLET PO PRN (21:36)
[2020-09-26] MEDS: PRAZOSIN HCL 1 MG CAPSULE PO SCH (21:36)
[2020-09-26] MEDS: traZODone HCL 100 MG TABLET (FP) PO SCH (21:36)
[2020-09-27] MEDS: busPIRone HCL 5 MG TABLET PO PRN (06:49)
[2020-09-27] MEDS: METHOCARBAMOL 500 MG TABLET PO PRN (06:49)
[2020-09-27 07:02] VITALS: BP 120/74; PULSE 83; TEMP 97.7
[2020-09-27] MEDS: NICOTINE 7 MG/24 HOURS TOPICAL PATCH TD SCH (09:37)
[2020-09-27] MEDS: PRENATAL VITAMINS W/ FOLIC ACID TABLET (FP) PO SCH (09:37)
[2020-09-27] MEDS: PANTOPRAZOLE 40 MG TABLET PO SCH (09:37)
[2020-09-27] MEDS: QUEtiapine FUMARATE 200 MG TABLET PO SCH (09:37)
[2020-09-27] MEDS ORDERED: MASKS NR ONE (10:34)
== END 2020-09-27 11:32 | disposition other institution (70) | DRG 772 ==
LOC: YASAS 12:13 → Y5N 12:14
PROVIDERS: ADMIT Allergy & Immunology; ATTEND Allergy & Immunology
PROC: HZ42ZZZ Group Counseling for Substance Abuse Treatment, Cognitive-Behavioral (ICD-10-PCS; principal; 2020-09-07)
DX: F10.20 Alcohol dependence, uncomplicated (principal); F14.10 Cocaine abuse, uncomplicated; F12.20 Cannabis dependence, uncomplicated; F17.210 Nicotine dependence, cigarettes, uncomplicated; F19.24 Other psychoactive substance dependence with psychoactive substance-induced mood disorder; F31.9 Bipolar disorder, unspecified; F41.9 Anxiety disorder, unspecified; F43.10 Post-traumatic stress disorder, unspecified; K00.0 Anodontia; Z87.81 Personal history of (healed) traumatic fracture
CPT/HCPCS: C9803; U0003

== ENCOUNTER 2020-12-13 10:06 | Emergency (ER) | payer OTHER ==
[2020-12-13 10:13] VITALS: BP 155/87; PULSE 75; TEMP 98.7; BMI 35.7
== END 2020-12-13 11:19 | disposition short-term general hospital (02) ==
LOC: JER 10:06
DX: F10.20 Alcohol dependence, uncomplicated (principal); Z11.52 Encounter for screening for COVID-19
CPT/HCPCS: 99285-25; C9803; U0003; U0005

== ENCOUNTER 2020-12-13 11:46 | Inpatient (IN) | payer OTHER ==
[2020-12-13 12:49] VITALS: BMI 34.9
[2020-12-13] MEDS ORDERED: ONDANSETRON *ODT* 4 MG TABLET SL PRN (13:51)
[2020-12-13] MEDS ORDERED: MAG HYDROX/AL HYDROX/SIMETH 30 ML UNIT-DOSE CUP PO PRN (13:51)
[2020-12-13] MEDS ORDERED: MENTHOL/PHENOL 1 EACH UD MM PRN (13:51)
[2020-12-13] MEDS ORDERED: MAGNESIUM HYDROX 2400MG/30ML ORAL SUSPENSION 30 ML CUP PO PRN (13:51)
[2020-12-13] MEDS ORDERED: IBUPROFEN 400 MG TABLET (FP) PO PRN (13:51)
[2020-12-13] MEDS ORDERED: ACETAMINOPHEN 325 MG TABLET (FP) PO PRN ×2 (13:51)
[2020-12-13] MEDS ORDERED: BISMUTH SUBSALICYLATE 262 MG/15 ML BTL PO PRN (13:51)
[2020-12-13] MEDS ORDERED: MAGNESIUM CITRATE 300 ML BOTTLE PO PRN (13:51)
[2020-12-13] MEDS ORDERED: chlordiazePOXIDE HCL 25 MG CAPSULE PO PRN (13:51)
[2020-12-13] MEDS ORDERED: ALBUTEROL SO4 HFA INHALER IH PRN (13:56)
[2020-12-13] MEDS: BUDESONIDE/FORMETEROL FUMARATE 160/4.5 mcg INHALER IH SCH ×2 (15:13→22:49)
[2020-12-13] MEDS: PANTOPRAZOLE 40 MG TABLET PO SCH (15:14)
[2020-12-13] MEDS: MONTELUKAST NA 10 MG TABLET PO SCH (15:14)
[2020-12-13] MEDS: hydrOXYzine PAMOATE 25 MG CAPSULE (FP) PO SCH ×3 (15:14→21:38)
[2020-12-13 17:12] LABS: HEMATOCRIT 43.8 % (35.4-49); HEMOGLOBIN 14.8 GM/dL (11.7-16.9); MCH 30.5 pg (25.7-33.7); MCHC 33.7 g/dl (32.0-35.9); MEAN CELL VOLUME 90.7 fl (80-96); PLATELET COUNT 239 K/MM3 (134-434); RBC 4.83 M/mm3 (4.00-5.60); RDW 16.7 % (11.9-15.9); WHITE BLOOD COUNT 5.9 K/mm3 (4.0-10.0)
[2020-12-13] MEDS: chlordiazePOXIDE HCL 25 MG CAPSULE PO SCH ×2 (17:17→22:41)
[2020-12-13 17:20] LABS: CALCIUM 9.3 mg/dL (8.5-10.1)
[2020-12-13 17:21] LABS: ALBUMIN 4.2 g/dl (3.4-5.0); BLOOD UREA NITROGEN 5.8 mg/dL (7-18)
[2020-12-13 17:24] LABS: CREATININE 0.9 mg/dL (0.55-1.3)
[2020-12-13 17:26] LABS: TOT PROT 7.9 g/dl (6.4-8.2)
[2020-12-13] MEDS: THIAMINE HCL 100 MG TABLET (FP) PO SCH (21:37)
[2020-12-13] MEDS: busPIRone HCL 5 MG TABLET PO SCH (21:37)
[2020-12-13] MEDS: traZODone HCL 100 MG TABLET (FP) PO SCH (21:37)
[2020-12-13] MEDS: MELATONIN 5 MG TABLETS PO SCH (21:37)
[2020-12-13] MEDS: QUEtiapine FUMARATE 100 MG TABLET (FP) PO SCH (21:39)
[2020-12-14] MEDS: chlordiazePOXIDE HCL 25 MG CAPSULE PO SCH ×4 (05:23→23:16)
[2020-12-14] MEDS: hydrOXYzine PAMOATE 25 MG CAPSULE (FP) PO SCH ×2 (05:24→10:26)
[2020-12-14] MEDS: BUDESONIDE/FORMETEROL FUMARATE 160/4.5 mcg INHALER IH SCH ×3 (10:24→23:34)
[2020-12-14] MEDS: MONTELUKAST NA 10 MG TABLET PO SCH (10:25)
[2020-12-14] MEDS: busPIRone HCL 5 MG TABLET PO SCH ×2 (10:25→23:15)
[2020-12-14] MEDS: PANTOPRAZOLE 40 MG TABLET PO SCH (10:25)
[2020-12-14] MEDS: PRENATAL VITAMINS W/ FOLIC ACID TABLET (FP) PO SCH (10:25)
[2020-12-14] MEDS: QUEtiapine FUMARATE 100 MG TABLET (FP) PO SCH (10:25)
[2020-12-14] MEDS: SERTRALINE HCL 50 MG TABLET (FP) PO SCH (10:26)
[2020-12-14] MEDS ORDERED: hydrOXYzine PAMOATE 25 MG CAPSULE (FP) PO PRN (10:41)
[2020-12-14] MEDS: POTASSIUM CHLORIDE TABS 20 MEQ TABLET.ER (FP) PO SCH ×2 (12:35→23:16)
[2020-12-14] MEDS: THIAMINE HCL 100 MG TABLET (FP) PO SCH (23:15)
[2020-12-14] MEDS: QUEtiapine FUMARATE 200 MG TABLET PO SCH (23:15)
[2020-12-14] MEDS: traZODone HCL 100 MG TABLET (FP) PO SCH (23:16)
[2020-12-14] MEDS: MELATONIN 5 MG TABLETS PO SCH (23:16)
[2020-12-15] MEDS: chlordiazePOXIDE HCL 25 MG CAPSULE PO SCH ×4 (06:10→22:13)
[2020-12-15] MEDS: MONTELUKAST NA 10 MG TABLET PO SCH (10:20)
[2020-12-15] MEDS: QUEtiapine FUMARATE 200 MG TABLET PO SCH ×2 (10:20→22:10)
[2020-12-15] MEDS: POTASSIUM CHLORIDE TABS 20 MEQ TABLET.ER (FP) PO SCH (10:20)
[2020-12-15] MEDS: busPIRone HCL 5 MG TABLET PO SCH ×2 (10:20→22:11)
[2020-12-15] MEDS: PANTOPRAZOLE 40 MG TABLET PO SCH (10:20)
[2020-12-15] MEDS: SERTRALINE HCL 50 MG TABLET (FP) PO SCH (10:20)
[2020-12-15] MEDS: PRENATAL VITAMINS W/ FOLIC ACID TABLET (FP) PO SCH (10:21)
[2020-12-15] MEDS: BUDESONIDE/FORMETEROL FUMARATE 160/4.5 mcg INHALER IH SCH ×2 (11:12→22:13)
[2020-12-15 11:48] LABS: ALBUMIN 3.6 g/dl (3.4-5.0); BLOOD UREA NITROGEN 10.9 mg/dL (7-18); CALCIUM 8.6 mg/dL (8.5-10.1)
[2020-12-15 11:51] LABS: CREATININE 0.6 mg/dL (0.55-1.3)
[2020-12-15 11:53] LABS: BILIRUBIN,TOTAL 0.6 mg/dL (0.2-1); TOT PROT 6.8 g/dl (6.4-8.2)
[2020-12-15 14:07] LABS: SARS-CoV-2 NAA Not Detected (Not Detected)
[2020-12-15] MEDS: MELATONIN 5 MG TABLETS PO SCH (22:10)
[2020-12-15] MEDS: THIAMINE HCL 100 MG TABLET (FP) PO SCH (22:11)
[2020-12-15] MEDS: traZODone HCL 100 MG TABLET (FP) PO SCH (22:11)
[2020-12-15] MEDS: METHOCARBAMOL 500 MG TABLET PO PRN (22:12)
[2020-12-16] MEDS ORDERED: chlordiazePOXIDE HCL 10 MG CAPSULE PO PRN
[2020-12-16] MEDS: chlordiazePOXIDE HCL 10 MG CAPSULE PO SCH ×4 (06:33→22:03)
[2020-12-16] MEDS: BUDESONIDE/FORMETEROL FUMARATE 160/4.5 mcg INHALER IH SCH ×2 (10:35→23:21)
[2020-12-16] MEDS: PRENATAL VITAMINS W/ FOLIC ACID TABLET (FP) PO SCH (10:37)
[2020-12-16] MEDS: SERTRALINE HCL 50 MG TABLET (FP) PO SCH (10:37)
[2020-12-16] MEDS: QUEtiapine FUMARATE 200 MG TABLET PO SCH ×2 (10:37→22:03)
[2020-12-16] MEDS: busPIRone HCL 5 MG TABLET PO SCH ×2 (10:37→22:02)
[2020-12-16] MEDS: PANTOPRAZOLE 40 MG TABLET PO SCH (10:37)
[2020-12-16] MEDS: MONTELUKAST NA 10 MG TABLET PO SCH (10:38)
[2020-12-16] MEDS: THIAMINE HCL 100 MG TABLET (FP) PO SCH (22:02)
[2020-12-16] MEDS: MELATONIN 5 MG TABLETS PO SCH (22:02)
[2020-12-16] MEDS: traZODone HCL 100 MG TABLET (FP) PO SCH (22:03)
[2020-12-17] MEDS: chlordiazePOXIDE HCL 10 MG CAPSULE PO SCH ×2 (06:18→17:54)
[2020-12-17] MEDS: METHOCARBAMOL 500 MG TABLET PO PRN (10:15)
[2020-12-17] MEDS: PANTOPRAZOLE 40 MG TABLET PO SCH (10:15)
[2020-12-17] MEDS: SERTRALINE HCL 50 MG TABLET (FP) PO SCH (10:16)
[2020-12-17] MEDS: MONTELUKAST NA 10 MG TABLET PO SCH (10:16)
[2020-12-17] MEDS: busPIRone HCL 5 MG TABLET PO SCH ×2 (10:17→22:15)
[2020-12-17] MEDS: PRENATAL VITAMINS W/ FOLIC ACID TABLET (FP) PO SCH (10:17)
[2020-12-17] MEDS: BUDESONIDE/FORMETEROL FUMARATE 160/4.5 mcg INHALER IH SCH ×2 (10:19→22:15)
[2020-12-17] MEDS: QUEtiapine FUMARATE 200 MG TABLET PO SCH ×2 (12:52→22:15)
[2020-12-17] MEDS: ARTIFICIAL TEARS (POLYVINYL ALCOHOL) OPTH DROPS OU SCH (22:14)
[2020-12-17] MEDS: THIAMINE HCL 100 MG TABLET (FP) PO SCH (22:15)
[2020-12-17] MEDS: traZODone HCL 100 MG TABLET (FP) PO SCH (22:15)
[2020-12-17] MEDS: MELATONIN 5 MG TABLETS PO SCH (22:15)
[2020-12-18] MEDS ORDERED: chlordiazePOXIDE HCL 10 MG CAPSULE PO ONE (05:00)
[2020-12-18 08:54] VITALS: BP 102/67; PULSE 88; TEMP 96.8
[2020-12-18] MEDS: busPIRone HCL 5 MG TABLET PO SCH (10:13)
[2020-12-18] MEDS: QUEtiapine FUMARATE 200 MG TABLET PO SCH (10:13)
[2020-12-18] MEDS: PANTOPRAZOLE 40 MG TABLET PO SCH (10:13)
[2020-12-18] MEDS: ARTIFICIAL TEARS (POLYVINYL ALCOHOL) OPTH DROPS OU SCH (10:13)
[2020-12-18] MEDS: MONTELUKAST NA 10 MG TABLET PO SCH (10:13)
[2020-12-18] MEDS: PRENATAL VITAMINS W/ FOLIC ACID TABLET (FP) PO SCH (10:13)
[2020-12-18] MEDS: SERTRALINE HCL 50 MG TABLET (FP) PO SCH (10:14)
[2020-12-18] MEDS: BUDESONIDE/FORMETEROL FUMARATE 160/4.5 mcg INHALER IH SCH (10:15)
== END 2020-12-18 11:40 | disposition other institution (70) | DRG 773 ==
LOC: YASAS 11:46 → Y3N 14:10
PROVIDERS: ADMIT Allergy & Immunology; ATTEND Allergy & Immunology
PROC: HZ2ZZZZ Detoxification Services for Substance Abuse Treatment (ICD-10-PCS; principal; 2020-12-13)
DX: F11.23 Opioid dependence with withdrawal (principal); F10.230 Alcohol dependence with withdrawal, uncomplicated; F12.20 Cannabis dependence, uncomplicated; F17.210 Nicotine dependence, cigarettes, uncomplicated; F19.24 Other psychoactive substance dependence with psychoactive substance-induced mood disorder; F31.9 Bipolar disorder, unspecified; F41.9 Anxiety disorder, unspecified; F90.9 Attention-deficit hyperactivity disorder, unspecified type; G47.00 Insomnia, unspecified; R45.89 Other symptoms and signs involving emotional state; K21.9 Gastro-esophageal reflux disease without esophagitis; Z91.14 Patient's other noncompliance with medication regimen
CPT/HCPCS: 36415; 80053; 85027; 86780; C9803; U0003; U0005

== ENCOUNTER 2020-12-18 11:13 | Inpatient (IN) | payer OTHER ==
[2020-12-18] MEDS ORDERED: guaiFENesin 200 MG/10 ML 10 ML UNIT-DOSE CUPS PO PRN (13:31)
[2020-12-18] MEDS ORDERED: P-EPHED 60MG/TRIPROLIDI 2.5MG TABLET PO PRN (13:31)
[2020-12-18] MEDS ORDERED: NICOTINE POLACRILEX 2 MG GUM BUC PRN (13:31)
[2020-12-18] MEDS ORDERED: LOPERAMIDE HCL 2 MG CAPSULE PO PRN (13:31)
[2020-12-18] MEDS ORDERED: MAG HYDROX/AL HYDROX/SIMETH 30 ML UNIT-DOSE CUP PO PRN (13:31)
[2020-12-18] MEDS ORDERED: ACETAMINOPHEN 325 MG TABLET (FP) PO PRN (13:31)
[2020-12-18] MEDS ORDERED: MAGNESIUM HYDROX 2400MG/30ML ORAL SUSPENSION 30 ML CUP PO PRN (13:31)
[2020-12-18] MEDS ORDERED: IBUPROFEN 400 MG TABLET (FP) PO PRN (13:31)
[2020-12-18] MEDS ORDERED: MAGNESIUM CITRATE 300 ML BOTTLE PO PRN (13:31)
[2020-12-18] MEDS ORDERED: ALBUTEROL SO4 HFA INHALER IH PRN (13:32)
[2020-12-18] MEDS: THIAMINE HCL 100 MG TABLET (FP) PO SCH (21:05)
[2020-12-18] MEDS: BUDESONIDE/FORMETEROL FUMARATE 160/4.5 mcg INHALER IH SCH (21:06)
[2020-12-18] MEDS: hydrOXYzine PAMOATE 25 MG CAPSULE (FP) PO PRN (21:07)
[2020-12-18] MEDS ORDERED: MELATONIN 5 MG TABLETS PO SCH (22:00)
[2020-12-19] MEDS: PANTOPRAZOLE 40 MG TABLET PO SCH (09:42)
[2020-12-19] MEDS: PRENATAL VITAMINS W/ FOLIC ACID TABLET (FP) PO SCH (09:42)
[2020-12-19] MEDS: NICOTINE 7 MG/24 HOURS TOPICAL PATCH TD SCH (09:42)
[2020-12-19] MEDS: MONTELUKAST NA 10 MG TABLET PO SCH (09:42)
[2020-12-19] MEDS: hydrOXYzine PAMOATE 25 MG CAPSULE (FP) PO PRN ×2 (09:43→21:09)
[2020-12-19] MEDS: BUDESONIDE/FORMETEROL FUMARATE 160/4.5 mcg INHALER IH SCH ×2 (09:44→21:10)
[2020-12-19] MEDS: SERTRALINE HCL 50 MG TABLET (FP) PO SCH (11:45)
[2020-12-19] MEDS: busPIRone HCL 10 MG TABLET (FP) PO SCH ×2 (11:45→21:09)
[2020-12-19] MEDS: QUEtiapine FUMARATE 200 MG TABLET PO SCH ×2 (11:45→21:09)
[2020-12-19] MEDS ORDERED: NAPHAZOLINE/PHENIRAMINE OPHTHALMIC 15 ML BOTTLE OU PRN (17:59)
[2020-12-19] MEDS ORDERED: PT OWN MED DRAWER 7, Y5N ONE ×3 (18:40→21:10)
[2020-12-19] MEDS: THIAMINE HCL 100 MG TABLET (FP) PO SCH (21:09)
[2020-12-19] MEDS: METHOCARBAMOL 500 MG TABLET PO PRN (21:09)
[2020-12-19] MEDS: MELATONIN 5 MG TABLETS PO PRN (21:09)
[2020-12-19] MEDS: traZODone HCL 100 MG TABLET (FP) PO SCH (21:11)
[2020-12-20] MEDS: busPIRone HCL 10 MG TABLET (FP) PO SCH ×2 (09:49→21:08)
[2020-12-20] MEDS: NICOTINE 7 MG/24 HOURS TOPICAL PATCH TD SCH (09:49)
[2020-12-20] MEDS: PRENATAL VITAMINS W/ FOLIC ACID TABLET (FP) PO SCH (09:49)
[2020-12-20] MEDS: MONTELUKAST NA 10 MG TABLET PO SCH (09:49)
[2020-12-20] MEDS: QUEtiapine FUMARATE 200 MG TABLET PO SCH ×2 (09:49→21:10)
[2020-12-20] MEDS: PANTOPRAZOLE 40 MG TABLET PO SCH (09:50)
[2020-12-20] MEDS: SERTRALINE HCL 50 MG TABLET (FP) PO SCH (09:50)
[2020-12-20] MEDS: BUDESONIDE/FORMETEROL FUMARATE 160/4.5 mcg INHALER IH SCH ×2 (09:50→21:45)
[2020-12-20] MEDS: ARTIFICIAL TEARS (POLYVINYL ALCOHOL) OPTH DROPS OU PRN (11:17)
[2020-12-20] MEDS: MELATONIN 5 MG TABLETS PO PRN (21:08)
[2020-12-20] MEDS: traZODone HCL 100 MG TABLET (FP) PO SCH (21:08)
[2020-12-20] MEDS: THIAMINE HCL 100 MG TABLET (FP) PO SCH (21:09)
[2020-12-21] MEDS ORDERED: PT OWN MED DRAWER 7, Y5N ONE (08:49)
[2020-12-21] MEDS: busPIRone HCL 10 MG TABLET (FP) PO SCH ×2 (09:57→21:10)
[2020-12-21] MEDS: PRENATAL VITAMINS W/ FOLIC ACID TABLET (FP) PO SCH (09:57)
[2020-12-21] MEDS: BUDESONIDE/FORMETEROL FUMARATE 160/4.5 mcg INHALER IH SCH ×2 (09:58→21:10)
[2020-12-21] MEDS: QUEtiapine FUMARATE 200 MG TABLET PO SCH ×2 (09:58→21:09)
[2020-12-21] MEDS: MONTELUKAST NA 10 MG TABLET PO SCH (09:58)
[2020-12-21] MEDS: PANTOPRAZOLE 40 MG TABLET PO SCH (09:58)
[2020-12-21] MEDS: SERTRALINE HCL 50 MG TABLET (FP) PO SCH (09:59)
[2020-12-21] MEDS: NICOTINE 7 MG/24 HOURS TOPICAL PATCH TD SCH (10:02)
[2020-12-21] MEDS: METHOCARBAMOL 500 MG TABLET PO PRN (21:09)
[2020-12-21] MEDS: traZODone HCL 100 MG TABLET (FP) PO SCH (21:09)
[2020-12-21] MEDS: THIAMINE HCL 100 MG TABLET (FP) PO SCH (21:09)
[2020-12-21] MEDS: MELATONIN 5 MG TABLETS PO PRN (21:09)
[2020-12-22 06:06] LABS: SARS-CoV-2 NAA Not Detected (Not Detected)
[2020-12-22] MEDS ORDERED: PT OWN MED DRAWER 7, Y5N ONE (06:43)
[2020-12-22] MEDS: NICOTINE 7 MG/24 HOURS TOPICAL PATCH TD SCH (09:45)
[2020-12-22] MEDS: BUDESONIDE/FORMETEROL FUMARATE 160/4.5 mcg INHALER IH SCH ×2 (09:47→21:08)
[2020-12-22] MEDS: busPIRone HCL 10 MG TABLET (FP) PO SCH ×2 (09:47→21:08)
[2020-12-22] MEDS: PANTOPRAZOLE 40 MG TABLET PO SCH (09:47)
[2020-12-22] MEDS: PRENATAL VITAMINS W/ FOLIC ACID TABLET (FP) PO SCH (09:47)
[2020-12-22] MEDS: MONTELUKAST NA 10 MG TABLET PO SCH (09:47)
[2020-12-22] MEDS: METHOCARBAMOL 500 MG TABLET PO PRN ×2 (09:47→21:07)
[2020-12-22] MEDS: QUEtiapine FUMARATE 200 MG TABLET PO SCH ×2 (09:47→21:07)
[2020-12-22] MEDS: ARTIFICIAL TEARS (POLYVINYL ALCOHOL) OPTH DROPS OU PRN (09:47)
[2020-12-22] MEDS: SERTRALINE HCL 50 MG TABLET (FP) PO SCH (09:47)
[2020-12-22] MEDS: traZODone HCL 100 MG TABLET (FP) PO SCH (21:07)
[2020-12-22] MEDS: MELATONIN 5 MG TABLETS PO PRN (21:07)
[2020-12-22] MEDS: hydrOXYzine PAMOATE 25 MG CAPSULE (FP) PO PRN (21:07)
[2020-12-22] MEDS: THIAMINE HCL 100 MG TABLET (FP) PO SCH (21:07)
[2020-12-23] MEDS ORDERED: PT OWN MED DRAWER 7, Y5N ONE ×2 (08:55→20:36)
[2020-12-23] MEDS: QUEtiapine FUMARATE 200 MG TABLET PO SCH ×2 (09:47→21:10)
[2020-12-23] MEDS: SERTRALINE HCL 50 MG TABLET (FP) PO SCH (09:47)
[2020-12-23] MEDS: PANTOPRAZOLE 40 MG TABLET PO SCH (09:47)
[2020-12-23] MEDS: busPIRone HCL 10 MG TABLET (FP) PO SCH ×2 (09:47→21:09)
[2020-12-23] MEDS: MONTELUKAST NA 10 MG TABLET PO SCH (09:47)
[2020-12-23] MEDS: PRENATAL VITAMINS W/ FOLIC ACID TABLET (FP) PO SCH (09:47)
[2020-12-23] MEDS: BUDESONIDE/FORMETEROL FUMARATE 160/4.5 mcg INHALER IH SCH ×2 (09:48→21:10)
[2020-12-23] MEDS: NICOTINE 7 MG/24 HOURS TOPICAL PATCH TD SCH (09:48)
[2020-12-23] MEDS: traZODone HCL 100 MG TABLET (FP) PO SCH (21:09)
[2020-12-23] MEDS: THIAMINE HCL 100 MG TABLET (FP) PO SCH (21:10)
[2020-12-24] MEDS ORDERED: PT OWN MED DRAWER 7, Y5N ONE ×3 (08:21→19:19)
[2020-12-24] MEDS: PANTOPRAZOLE 40 MG TABLET PO SCH (09:27)
[2020-12-24] MEDS: SERTRALINE HCL 50 MG TABLET (FP) PO SCH (09:27)
[2020-12-24] MEDS: MONTELUKAST NA 10 MG TABLET PO SCH (09:27)
[2020-12-24] MEDS: BUDESONIDE/FORMETEROL FUMARATE 160/4.5 mcg INHALER IH SCH ×2 (09:27→21:25)
[2020-12-24] MEDS: QUEtiapine FUMARATE 200 MG TABLET PO SCH ×2 (09:27→21:25)
[2020-12-24] MEDS: busPIRone HCL 10 MG TABLET (FP) PO SCH ×2 (09:27→21:25)
[2020-12-24] MEDS: PRENATAL VITAMINS W/ FOLIC ACID TABLET (FP) PO SCH (09:27)
[2020-12-24] MEDS: NICOTINE 7 MG/24 HOURS TOPICAL PATCH TD SCH (09:27)
[2020-12-24] MEDS: THIAMINE HCL 100 MG TABLET (FP) PO SCH (21:24)
[2020-12-24] MEDS: traZODone HCL 100 MG TABLET (FP) PO SCH (21:25)
[2020-12-24] MEDS: hydrOXYzine PAMOATE 25 MG CAPSULE (FP) PO PRN (21:25)
[2020-12-24] MEDS: METHOCARBAMOL 500 MG TABLET PO PRN (21:25)
[2020-12-25] MEDS: busPIRone HCL 10 MG TABLET (FP) PO SCH ×2 (09:35→20:59)
[2020-12-25] MEDS: MONTELUKAST NA 10 MG TABLET PO SCH (09:36)
[2020-12-25] MEDS: PRENATAL VITAMINS W/ FOLIC ACID TABLET (FP) PO SCH (09:36)
[2020-12-25] MEDS: PANTOPRAZOLE 40 MG TABLET PO SCH (09:36)
[2020-12-25] MEDS: QUEtiapine FUMARATE 200 MG TABLET PO SCH ×2 (09:36→20:59)
[2020-12-25] MEDS: NICOTINE 7 MG/24 HOURS TOPICAL PATCH TD SCH (09:36)
[2020-12-25] MEDS: ARTIFICIAL TEARS (POLYVINYL ALCOHOL) OPTH DROPS OU PRN (09:37)
[2020-12-25] MEDS: BUDESONIDE/FORMETEROL FUMARATE 160/4.5 mcg INHALER IH SCH ×2 (09:37→21:00)
[2020-12-25] MEDS: SERTRALINE HCL 50 MG TABLET (FP) PO SCH (09:37)
[2020-12-25] MEDS ORDERED: PT OWN MED DRAWER 7, Y5N ONE (14:01)
[2020-12-25] MEDS: THIAMINE HCL 100 MG TABLET (FP) PO SCH (20:59)
[2020-12-25] MEDS: traZODone HCL 100 MG TABLET (FP) PO SCH (20:59)
[2020-12-26] MEDS: SERTRALINE HCL 50 MG TABLET (FP) PO SCH (10:01)
[2020-12-26] MEDS: busPIRone HCL 10 MG TABLET (FP) PO SCH ×2 (10:01→21:24)
[2020-12-26] MEDS: PANTOPRAZOLE 40 MG TABLET PO SCH (10:01)
[2020-12-26] MEDS: PRENATAL VITAMINS W/ FOLIC ACID TABLET (FP) PO SCH (10:01)
[2020-12-26] MEDS: NICOTINE 7 MG/24 HOURS TOPICAL PATCH TD SCH (10:02)
[2020-12-26] MEDS: MONTELUKAST NA 10 MG TABLET PO SCH (10:02)
[2020-12-26] MEDS: QUEtiapine FUMARATE 200 MG TABLET PO SCH ×2 (10:02→21:24)
[2020-12-26] MEDS: ARTIFICIAL TEARS (POLYVINYL ALCOHOL) OPTH DROPS OU PRN (10:03)
[2020-12-26] MEDS: BUDESONIDE/FORMETEROL FUMARATE 160/4.5 mcg INHALER IH SCH ×2 (10:03→21:24)
[2020-12-26] MEDS: MELATONIN 5 MG TABLETS PO PRN (21:23)
[2020-12-26] MEDS: THIAMINE HCL 100 MG TABLET (FP) PO SCH (21:23)
[2020-12-26] MEDS: traZODone HCL 100 MG TABLET (FP) PO SCH (21:24)
[2020-12-27] MEDS: hydrOXYzine PAMOATE 25 MG CAPSULE (FP) PO PRN (10:03)
[2020-12-27] MEDS: PANTOPRAZOLE 40 MG TABLET PO SCH (10:03)
[2020-12-27] MEDS: SERTRALINE HCL 50 MG TABLET (FP) PO SCH (10:03)
[2020-12-27] MEDS: NICOTINE 7 MG/24 HOURS TOPICAL PATCH TD SCH (10:03)
[2020-12-27] MEDS: busPIRone HCL 10 MG TABLET (FP) PO SCH ×2 (10:03→21:13)
[2020-12-27] MEDS: MONTELUKAST NA 10 MG TABLET PO SCH (10:03)
[2020-12-27] MEDS: QUEtiapine FUMARATE 200 MG TABLET PO SCH ×2 (10:03→21:13)
[2020-12-27] MEDS: PRENATAL VITAMINS W/ FOLIC ACID TABLET (FP) PO SCH (10:03)
[2020-12-27] MEDS: BUDESONIDE/FORMETEROL FUMARATE 160/4.5 mcg INHALER IH SCH ×2 (10:04→21:14)
[2020-12-27] MEDS: ARTIFICIAL TEARS (POLYVINYL ALCOHOL) OPTH DROPS OU PRN (10:05)
[2020-12-27] MEDS: traZODone HCL 100 MG TABLET (FP) PO SCH (21:13)
[2020-12-27] MEDS: MELATONIN 5 MG TABLETS PO PRN (21:13)
[2020-12-27] MEDS: THIAMINE HCL 100 MG TABLET (FP) PO SCH (21:13)
[2020-12-27] MEDS: METHOCARBAMOL 500 MG TABLET PO PRN (21:13)
[2020-12-28] MEDS: PRENATAL VITAMINS W/ FOLIC ACID TABLET (FP) PO SCH (09:41)
[2020-12-28] MEDS: PANTOPRAZOLE 40 MG TABLET PO SCH (09:41)
[2020-12-28] MEDS: BUDESONIDE/FORMETEROL FUMARATE 160/4.5 mcg INHALER IH SCH ×2 (09:41→21:36)
[2020-12-28] MEDS: ARTIFICIAL TEARS (POLYVINYL ALCOHOL) OPTH DROPS OU PRN (09:41)
[2020-12-28] MEDS: MONTELUKAST NA 10 MG TABLET PO SCH (09:42)
[2020-12-28] MEDS: busPIRone HCL 10 MG TABLET (FP) PO SCH ×2 (09:42→21:35)
[2020-12-28] MEDS: QUEtiapine FUMARATE 200 MG TABLET PO SCH ×2 (09:42→21:35)
[2020-12-28] MEDS: NICOTINE 7 MG/24 HOURS TOPICAL PATCH TD SCH (09:42)
[2020-12-28] MEDS: hydrOXYzine PAMOATE 25 MG CAPSULE (FP) PO PRN (09:42)
[2020-12-28] MEDS: SERTRALINE HCL 50 MG TABLET (FP) PO SCH (09:42)
[2020-12-28] MEDS: traZODone HCL 100 MG TABLET (FP) PO SCH (21:35)
[2020-12-28] MEDS: THIAMINE HCL 100 MG TABLET (FP) PO SCH (21:35)
[2020-12-28] MEDS: MELATONIN 5 MG TABLETS PO PRN (21:35)
[2020-12-29] MEDS ORDERED: MASKS NR ONE (06:39)
[2020-12-29] MEDS: NICOTINE 7 MG/24 HOURS TOPICAL PATCH TD SCH (10:20)
[2020-12-29] MEDS: ARTIFICIAL TEARS (POLYVINYL ALCOHOL) OPTH DROPS OU PRN (10:21)
[2020-12-29] MEDS: QUEtiapine FUMARATE 200 MG TABLET PO SCH ×2 (10:21→21:23)
[2020-12-29] MEDS: busPIRone HCL 10 MG TABLET (FP) PO SCH ×2 (10:21→21:23)
[2020-12-29] MEDS: MONTELUKAST NA 10 MG TABLET PO SCH (10:21)
[2020-12-29] MEDS: PANTOPRAZOLE 40 MG TABLET PO SCH (10:21)
[2020-12-29] MEDS: SERTRALINE HCL 50 MG TABLET (FP) PO SCH (10:21)
[2020-12-29] MEDS: BUDESONIDE/FORMETEROL FUMARATE 160/4.5 mcg INHALER IH SCH ×2 (10:21→21:24)
[2020-12-29] MEDS: PRENATAL VITAMINS W/ FOLIC ACID TABLET (FP) PO SCH (10:21)
[2020-12-29] MEDS: MENTHOL/PHENOL 1 EACH UD MM PRN ×2 (15:04→21:51)
[2020-12-29] MEDS: MELATONIN 5 MG TABLETS PO PRN (21:23)
[2020-12-29] MEDS: THIAMINE HCL 100 MG TABLET (FP) PO SCH (21:23)
[2020-12-29] MEDS: traZODone HCL 100 MG TABLET (FP) PO SCH (21:24)
[2020-12-30 08:03] VITALS: PULSE 68
[2020-12-30] MEDS: PRENATAL VITAMINS W/ FOLIC ACID TABLET (FP) PO SCH (10:05)
[2020-12-30] MEDS: SERTRALINE HCL 50 MG TABLET (FP) PO SCH (10:06)
[2020-12-30] MEDS: PANTOPRAZOLE 40 MG TABLET PO SCH (10:06)
[2020-12-30] MEDS: NICOTINE 7 MG/24 HOURS TOPICAL PATCH TD SCH (10:06)
[2020-12-30] MEDS: busPIRone HCL 10 MG TABLET (FP) PO SCH ×2 (10:06→21:30)
[2020-12-30] MEDS: MONTELUKAST NA 10 MG TABLET PO SCH (10:06)
[2020-12-30] MEDS: QUEtiapine FUMARATE 200 MG TABLET PO SCH ×2 (10:06→21:30)
[2020-12-30] MEDS: hydrOXYzine PAMOATE 25 MG CAPSULE (FP) PO PRN (10:07)
[2020-12-30] MEDS: ARTIFICIAL TEARS (POLYVINYL ALCOHOL) OPTH DROPS OU PRN (10:07)
[2020-12-30] MEDS: METHOCARBAMOL 500 MG TABLET PO PRN ×2 (10:08→21:31)
[2020-12-30] MEDS: BUDESONIDE/FORMETEROL FUMARATE 160/4.5 mcg INHALER IH SCH ×2 (10:09→21:30)
[2020-12-30] MEDS: MENTHOL/PHENOL 1 EACH UD MM PRN (18:14)
[2020-12-30] MEDS: THIAMINE HCL 100 MG TABLET (FP) PO SCH (21:30)
[2020-12-30] MEDS: MELATONIN 5 MG TABLETS PO PRN (21:30)
[2020-12-30] MEDS: traZODone HCL 100 MG TABLET (FP) PO SCH (21:30)
[2020-12-31] MEDS: MENTHOL/PHENOL 1 EACH UD MM PRN ×2 (06:46→09:58)
[2020-12-31] MEDS: PANTOPRAZOLE 40 MG TABLET PO SCH (09:55)
[2020-12-31] MEDS: METHOCARBAMOL 500 MG TABLET PO PRN ×2 (09:55→21:23)
[2020-12-31] MEDS: MONTELUKAST NA 10 MG TABLET PO SCH (09:55)
[2020-12-31] MEDS: BUDESONIDE/FORMETEROL FUMARATE 160/4.5 mcg INHALER IH SCH ×2 (09:55→21:45)
[2020-12-31] MEDS: busPIRone HCL 10 MG TABLET (FP) PO SCH ×2 (09:55→21:23)
[2020-12-31] MEDS: NICOTINE 7 MG/24 HOURS TOPICAL PATCH TD SCH (09:56)
[2020-12-31] MEDS: PRENATAL VITAMINS W/ FOLIC ACID TABLET (FP) PO SCH (09:56)
[2020-12-31] MEDS: SERTRALINE HCL 50 MG TABLET (FP) PO SCH (09:56)
[2020-12-31] MEDS: QUEtiapine FUMARATE 200 MG TABLET PO SCH ×2 (09:56→21:23)
[2020-12-31] MEDS: ARTIFICIAL TEARS (POLYVINYL ALCOHOL) OPTH DROPS OU PRN (09:57)
[2020-12-31] MEDS: traZODone HCL 100 MG TABLET (FP) PO SCH (21:23)
[2020-12-31] MEDS: MELATONIN 5 MG TABLETS PO PRN (21:23)
[2020-12-31] MEDS: hydrOXYzine PAMOATE 25 MG CAPSULE (FP) PO PRN (21:23)
[2020-12-31] MEDS: THIAMINE HCL 100 MG TABLET (FP) PO SCH (21:23)
[2021-01-01] MEDS: MENTHOL/PHENOL 1 EACH UD MM PRN (06:51)
[2021-01-01 07:07] VITALS: BP 120/75; TEMP 97.5
[2021-01-01] MEDS: PRENATAL VITAMINS W/ FOLIC ACID TABLET (FP) PO SCH (09:35)
[2021-01-01] MEDS: hydrOXYzine PAMOATE 25 MG CAPSULE (FP) PO PRN (09:35)
[2021-01-01] MEDS: SERTRALINE HCL 50 MG TABLET (FP) PO SCH (09:35)
[2021-01-01] MEDS: busPIRone HCL 10 MG TABLET (FP) PO SCH (09:36)
[2021-01-01] MEDS: NICOTINE 7 MG/24 HOURS TOPICAL PATCH TD SCH (09:36)
[2021-01-01] MEDS: QUEtiapine FUMARATE 200 MG TABLET PO SCH (09:36)
[2021-01-01] MEDS: MONTELUKAST NA 10 MG TABLET PO SCH (09:36)
[2021-01-01] MEDS: BUDESONIDE/FORMETEROL FUMARATE 160/4.5 mcg INHALER IH SCH (09:36)
[2021-01-01] MEDS: PANTOPRAZOLE 40 MG TABLET PO SCH (09:38)
== END 2021-01-01 09:53 | disposition home or self-care (01) | DRG 772 ==
LOC: YASAS 11:13 → Y3E 11:14 → Y3W 12-25 14:19
PROVIDERS: ADMIT Allergy & Immunology; ATTEND Allergy & Immunology
PROC: HZ42ZZZ Group Counseling for Substance Abuse Treatment, Cognitive-Behavioral (ICD-10-PCS; principal; 2020-12-18)
DX: F10.20 Alcohol dependence, uncomplicated (principal); F14.10 Cocaine abuse, uncomplicated; F12.20 Cannabis dependence, uncomplicated; F17.210 Nicotine dependence, cigarettes, uncomplicated; F19.282 Other psychoactive substance dependence with psychoactive substance-induced sleep disorder; F19.24 Other psychoactive substance dependence with psychoactive substance-induced mood disorder; F41.9 Anxiety disorder, unspecified; F31.9 Bipolar disorder, unspecified; F43.10 Post-traumatic stress disorder, unspecified; J45.909 Unspecified asthma, uncomplicated; K21.9 Gastro-esophageal reflux disease without esophagitis; Z87.81 Personal history of (healed) traumatic fracture; Z56.0 Unemployment, unspecified; Z59.0 Homelessness
CPT/HCPCS: C9803; U0003; U0005

== ENCOUNTER 2021-02-03 11:59 | Inpatient (IN) | payer OTHER ==
[2021-02-03 12:31] VITALS: BMI 37.8
[2021-02-03] MEDS ORDERED: MAG HYDROX/AL HYDROX/SIMETH 30 ML UNIT-DOSE CUP PO PRN (12:40)
[2021-02-03] MEDS ORDERED: MENTHOL/PHENOL 1 EACH UD MM PRN (12:40)
[2021-02-03] MEDS ORDERED: IBUPROFEN 400 MG TABLET (FP) PO PRN (12:40)
[2021-02-03] MEDS ORDERED: ONDANSETRON *ODT* 4 MG TABLET SL PRN (12:40)
[2021-02-03] MEDS ORDERED: NICOTINE POLACRILEX 2 MG GUM BUC PRN (12:40)
[2021-02-03] MEDS ORDERED: BISMUTH SUBSALICYLATE 524 MG/30 ML PO PRN (12:40)
[2021-02-03] MEDS ORDERED: ACETAMINOPHEN 325 MG TABLET (FP) PO PRN ×2 (12:40)
[2021-02-03] MEDS ORDERED: MAGNESIUM CITRATE 300 ML BOTTLE PO PRN (12:40)
[2021-02-03] MEDS ORDERED: MAGNESIUM HYDROX 2400MG/30ML ORAL SUSPENSION 30 ML CUP PO PRN (12:40)
[2021-02-03] MEDS ORDERED: ALBUTEROL SO4 HFA INHALER IH PRN (12:43)
[2021-02-03] MEDS ORDERED: chlordiazePOXIDE 5 MG CAPSULE PO PRN (13:00)
[2021-02-03] MEDS: hydrOXYzine PAMOATE 25 MG CAPSULE (FP) PO SCH ×3 (14:06→22:05)
[2021-02-03] MEDS: chlordiazePOXIDE HCL 10 MG CAPSULE PO SCH ×2 (17:16→22:02)
[2021-02-03] MEDS ORDERED: traZODone HCL 50 MG TABLET (FP) PO SCH (22:00)
[2021-02-03] MEDS ORDERED: QUEtiapine FUMARATE 100 MG TABLET (FP) PO SCH (22:00)
[2021-02-03] MEDS ORDERED: busPIRone HCL 5 MG TABLET PO SCH (22:00)
[2021-02-03] MEDS: THIAMINE HCL 100 MG TABLET (FP) PO SCH (22:01)
[2021-02-03] MEDS: BUDESONIDE/FORMETEROL FUMARATE 160/4.5 mcg INHALER IH SCH (22:03)
[2021-02-03] MEDS: MELATONIN 5 MG TABLETS PO SCH (22:05)
[2021-02-04] MEDS: chlordiazePOXIDE HCL 10 MG CAPSULE PO SCH ×4 (05:57→22:05)
[2021-02-04] MEDS: hydrOXYzine PAMOATE 25 MG CAPSULE (FP) PO SCH ×5 (05:58→22:06)
[2021-02-04 09:50] LABS: HEMOGLOBIN 14.4 GM/dL (11.7-16.9); MCH 29.4 pg (25.7-33.7); MCHC 34.2 g/dl (32.0-35.9); MEAN CELL VOLUME 86.1 fl (80-96); MEAN PLT VOLUME 8.5 fl (7.5-11.1); PLATELET COUNT 154 K/MM3 (134-434); RBC 4.89 M/mm3 (4.00-5.60); RDW 16.6 % (11.9-15.9); WHITE BLOOD COUNT 4.8 K/mm3 (4.0-10.0)
[2021-02-04 09:58] LABS: ALBUMIN 3.9 g/dl (3.4-5.0); BLOOD UREA NITROGEN 10.7 mg/dL (7-18)
[2021-02-04 10:01] LABS: CREATININE 0.7 mg/dL (0.55-1.3)
[2021-02-04 10:03] LABS: BILIRUBIN,TOTAL 1.2 mg/dL (0.2-1); TOT PROT 7.4 g/dl (6.4-8.2)
[2021-02-04] MEDS: QUEtiapine FUMARATE 200 MG TABLET PO SCH ×2 (10:50→22:05)
[2021-02-04] MEDS: PANTOPRAZOLE 40 MG TABLET PO SCH (10:50)
[2021-02-04] MEDS: MONTELUKAST NA 10 MG TABLET PO SCH (10:50)
[2021-02-04] MEDS: PRENATAL VITAMINS W/ FOLIC ACID TABLET (FP) PO SCH (10:51)
[2021-02-04] MEDS: BUDESONIDE/FORMETEROL FUMARATE 160/4.5 mcg INHALER IH SCH ×2 (10:53→22:06)
[2021-02-04] MEDS: busPIRone HCL 10 MG TABLET (FP) PO SCH ×2 (10:53→22:04)
[2021-02-04] MEDS ORDERED: POTASSIUM CHLORIDE ORAL LIQUID 20 MEQ/15 ML PO ONE ×2 (15:00→19:00)
[2021-02-04] MEDS: METHOCARBAMOL 500 MG TABLET PO PRN (17:32)
[2021-02-04] MEDS ORDERED: traZODone HCL 50 MG TABLET (FP) ONE (21:28)
[2021-02-04] MEDS: THIAMINE HCL 100 MG TABLET (FP) PO SCH (22:04)
[2021-02-04] MEDS: traZODone HCL 100 MG TABLET (FP) PO SCH (22:05)
[2021-02-04] MEDS: MELATONIN 5 MG TABLETS PO SCH (22:06)
[2021-02-04] MEDS: BACITRACIN 15 GM TUBE TOPICAL OINTMENT TP SCH (23:38)
[2021-02-05] MEDS: chlordiazePOXIDE 5 MG CAPSULE PO SCH ×4 (06:54→22:11)
[2021-02-05] MEDS: hydrOXYzine PAMOATE 25 MG CAPSULE (FP) PO SCH ×5 (06:54→22:10)
[2021-02-05] MEDS: QUEtiapine FUMARATE 200 MG TABLET PO SCH ×2 (10:05→22:10)
[2021-02-05] MEDS: PRENATAL VITAMINS W/ FOLIC ACID TABLET (FP) PO SCH (10:05)
[2021-02-05] MEDS: MONTELUKAST NA 10 MG TABLET PO SCH (10:06)
[2021-02-05] MEDS: METHOCARBAMOL 500 MG TABLET PO PRN ×2 (10:06→17:18)
[2021-02-05] MEDS: busPIRone HCL 10 MG TABLET (FP) PO SCH ×2 (10:06→22:10)
[2021-02-05] MEDS: BUDESONIDE/FORMETEROL FUMARATE 160/4.5 mcg INHALER IH SCH ×2 (10:06→22:12)
[2021-02-05] MEDS: PANTOPRAZOLE 40 MG TABLET PO SCH (10:06)
[2021-02-05] MEDS: BACITRACIN 15 GM TUBE TOPICAL OINTMENT TP SCH ×2 (10:07→22:44)
[2021-02-05] MEDS: MELATONIN 5 MG TABLETS PO SCH (22:10)
[2021-02-05] MEDS: traZODone HCL 100 MG TABLET (FP) PO SCH (22:10)
[2021-02-05] MEDS: THIAMINE HCL 100 MG TABLET (FP) PO SCH (22:12)
[2021-02-06] MEDS ORDERED: chlordiazePOXIDE HCL 10 MG CAPSULE PO PRN
[2021-02-06] MEDS: chlordiazePOXIDE HCL 10 MG CAPSULE PO SCH ×4 (05:57→22:11)
[2021-02-06] MEDS: hydrOXYzine PAMOATE 25 MG CAPSULE (FP) PO SCH ×5 (05:57→22:10)
[2021-02-06] MEDS: PANTOPRAZOLE 40 MG TABLET PO SCH (10:05)
[2021-02-06] MEDS: QUEtiapine FUMARATE 200 MG TABLET PO SCH ×2 (10:05→22:11)
[2021-02-06] MEDS: busPIRone HCL 10 MG TABLET (FP) PO SCH ×2 (10:05→22:10)
[2021-02-06] MEDS: PRENATAL VITAMINS W/ FOLIC ACID TABLET (FP) PO SCH (10:05)
[2021-02-06] MEDS: MONTELUKAST NA 10 MG TABLET PO SCH (10:06)
[2021-02-06] MEDS: METHOCARBAMOL 500 MG TABLET PO PRN ×2 (10:07→22:13)
[2021-02-06] MEDS: BUDESONIDE/FORMETEROL FUMARATE 160/4.5 mcg INHALER IH SCH ×2 (11:12→22:12)
[2021-02-06] MEDS: BACITRACIN 15 GM TUBE TOPICAL OINTMENT TP SCH ×2 (11:25→22:10)
[2021-02-06] MEDS: MELATONIN 5 MG TABLETS PO SCH (22:10)
[2021-02-06] MEDS: THIAMINE HCL 100 MG TABLET (FP) PO SCH (22:11)
[2021-02-06] MEDS: traZODone HCL 100 MG TABLET (FP) PO SCH (22:12)
[2021-02-07] MEDS: hydrOXYzine PAMOATE 25 MG CAPSULE (FP) PO SCH ×5 (06:16→22:21)
[2021-02-07] MEDS: chlordiazePOXIDE HCL 10 MG CAPSULE PO SCH ×2 (06:16→18:00)
[2021-02-07] MEDS: MONTELUKAST NA 10 MG TABLET PO SCH (10:10)
[2021-02-07] MEDS: PRENATAL VITAMINS W/ FOLIC ACID TABLET (FP) PO SCH (10:10)
[2021-02-07] MEDS: PANTOPRAZOLE 40 MG TABLET PO SCH (10:10)
[2021-02-07] MEDS: BACITRACIN 15 GM TUBE TOPICAL OINTMENT TP SCH ×2 (10:10→22:21)
[2021-02-07] MEDS: busPIRone HCL 10 MG TABLET (FP) PO SCH ×2 (10:10→22:21)
[2021-02-07] MEDS: QUEtiapine FUMARATE 200 MG TABLET PO SCH ×2 (10:10→22:21)
[2021-02-07] MEDS: BUDESONIDE/FORMETEROL FUMARATE 160/4.5 mcg INHALER IH SCH ×2 (10:12→22:21)
[2021-02-07] MEDS: THIAMINE HCL 100 MG TABLET (FP) PO SCH (22:21)
[2021-02-07] MEDS: MELATONIN 5 MG TABLETS PO SCH (22:21)
[2021-02-07] MEDS: traZODone HCL 100 MG TABLET (FP) PO SCH (22:21)
[2021-02-08] MEDS ORDERED: chlordiazePOXIDE HCL 10 MG CAPSULE PO ONE (05:00)
[2021-02-08] MEDS: hydrOXYzine PAMOATE 25 MG CAPSULE (FP) PO SCH ×2 (07:00→10:03)
[2021-02-08 09:30] VITALS: BP 127/79; PULSE 82; TEMP 98.1
[2021-02-08] MEDS: busPIRone HCL 10 MG TABLET (FP) PO SCH (10:02)
[2021-02-08] MEDS: QUEtiapine FUMARATE 200 MG TABLET PO SCH (10:02)
[2021-02-08] MEDS: PRENATAL VITAMINS W/ FOLIC ACID TABLET (FP) PO SCH (10:02)
[2021-02-08] MEDS: MONTELUKAST NA 10 MG TABLET PO SCH (10:02)
[2021-02-08] MEDS: PANTOPRAZOLE 40 MG TABLET PO SCH (10:02)
[2021-02-08] MEDS: BACITRACIN 15 GM TUBE TOPICAL OINTMENT TP SCH (10:03)
[2021-02-08] MEDS: BUDESONIDE/FORMETEROL FUMARATE 160/4.5 mcg INHALER IH SCH (10:03)
== END 2021-02-08 11:12 | disposition home or self-care (01) | DRG 774 ==
LOC: YASAS 11:59 → Y6N 12:46
PROVIDERS: ADMIT Allergy & Immunology; ATTEND Allergy & Immunology
PROC: HZ2ZZZZ Detoxification Services for Substance Abuse Treatment (ICD-10-PCS; principal; 2021-02-03)
DX: F10.230 Alcohol dependence with withdrawal, uncomplicated (principal); F14.10 Cocaine abuse, uncomplicated; F12.20 Cannabis dependence, uncomplicated; F17.213 Nicotine dependence, cigarettes, with withdrawal; F19.24 Other psychoactive substance dependence with psychoactive substance-induced mood disorder; F31.9 Bipolar disorder, unspecified; F43.10 Post-traumatic stress disorder, unspecified; F41.9 Anxiety disorder, unspecified; G47.00 Insomnia, unspecified; J45.20 Mild intermittent asthma, uncomplicated; K21.9 Gastro-esophageal reflux disease without esophagitis; R79.89 Other specified abnormal findings of blood chemistry; E66.9 Obesity, unspecified; Z68.37 Body mass index [BMI] 37.0-37.9, adult; Z86.69 Personal history of other diseases of the nervous system and sense organs
CPT/HCPCS: 36415; 80053; 82962; 84132; 85027; 86780; C9803; U0003; U0005

== ENCOUNTER 2021-04-11 15:53 | Inpatient (IN) | payer OTHER ==
[2021-04-11 17:29] VITALS: BMI 39.6
[2021-04-11] MEDS ORDERED: NICOTINE 10 MG CARTRIDGE (INHALER) IH PRN (20:51)
[2021-04-11] MEDS ORDERED: BISMUTH SUBSALICYLATE 524 MG/30 ML PO PRN (20:51)
[2021-04-11] MEDS ORDERED: MAGNESIUM HYDROX 2400MG/30ML ORAL SUSPENSION 30 ML CUP PO PRN (20:51)
[2021-04-11] MEDS ORDERED: ACETAMINOPHEN 325 MG TABLET (FP) PO PRN ×2 (20:51)
[2021-04-11] MEDS ORDERED: MENTHOL/PHENOL 1 EACH UD MM PRN (20:51)
[2021-04-11] MEDS ORDERED: diazePAM 5 MG TABLET PO ONE (20:51)
[2021-04-11] MEDS ORDERED: NICOTINE POLACRILEX 2 MG GUM BUC PRN (20:51)
[2021-04-11] MEDS ORDERED: MAG HYDROX/AL HYDROX/SIMETH 30 ML UNIT-DOSE CUP PO PRN (20:51)
[2021-04-11] MEDS ORDERED: ONDANSETRON *ODT* 4 MG TABLET SL PRN (20:51)
[2021-04-11] MEDS ORDERED: MAGNESIUM CITRATE 300 ML BOTTLE PO PRN (20:51)
[2021-04-11] MEDS ORDERED: IBUPROFEN 400 MG TABLET (FP) PO PRN (20:51)
[2021-04-11] MEDS ORDERED: ALBUTEROL SO4 HFA INHALER IH PRN (20:55)
[2021-04-11] MEDS ORDERED: HYDROCHLOROTHIAZIDE 50 MG TABLET PO SCH (21:00)
[2021-04-11] MEDS ORDERED: diazePAM 5 MG TABLET ONE (22:51)
[2021-04-11] MEDS: PRENATAL VITAMINS W/ FOLIC ACID TABLET (FP) PO SCH (22:53)
[2021-04-11] MEDS: hydrOXYzine PAMOATE 25 MG CAPSULE (FP) PO SCH (22:53)
[2021-04-11] MEDS: THIAMINE HCL 100 MG TABLET (FP) PO SCH (22:53)
[2021-04-11] MEDS: HYDROCHLOROTHIAZIDE 25 MG TABLET (FP) PO SCH (23:24)
[2021-04-11] MEDS: MELATONIN 5 MG TABLETS PO SCH (23:25)
[2021-04-11] MEDS: diazePAM 5 MG TABLET PO SCH (23:25)
[2021-04-12] MEDS ORDERED: METHOCARBAMOL 500 MG TABLET ONE (03:45)
[2021-04-12] MEDS: METHOCARBAMOL 500 MG TABLET PO PRN ×2 (03:48→17:23)
[2021-04-12] MEDS ORDERED: diazePAM 5 MG TABLET ONE (05:39)
[2021-04-12] MEDS ORDERED: hydrOXYzine PAMOATE 25 MG CAPSULE (FP) PO ONE (05:39)
[2021-04-12] MEDS: hydrOXYzine PAMOATE 25 MG CAPSULE (FP) PO SCH ×5 (05:45→22:13)
[2021-04-12] MEDS: diazePAM 5 MG TABLET PO SCH ×4 (05:45→22:12)
[2021-04-12] MEDS: PRENATAL VITAMINS W/ FOLIC ACID TABLET (FP) PO SCH (10:14)
[2021-04-12] MEDS: NICOTINE 14 MG/24 HOURS TOPICAL PATCH TD SCH (10:14)
[2021-04-12] MEDS ORDERED: BACITRACIN 0.9 GM PACKET ONE (10:16)
[2021-04-12] MEDS: BACITRACIN 15 GM TUBE TOPICAL OINTMENT TP SCH ×2 (10:17→22:13)
[2021-04-12] MEDS: HYDROCHLOROTHIAZIDE 25 MG TABLET (FP) PO SCH (10:17)
[2021-04-12] MEDS ORDERED: LOPERAMIDE HCL 2 MG CAPSULE PO ONE (11:11)
[2021-04-12] MEDS: BENZOCAINE 28 GM HEMORRHOIDAL OINTMENT RC SCH ×3 (11:33→22:15)
[2021-04-12] MEDS: busPIRone HCL 10 MG TABLET (FP) PO SCH ×2 (11:34→22:13)
[2021-04-12 13:48] LABS: HEMATOCRIT 43.9 % (35.4-49); HEMOGLOBIN 15.4 GM/dL (11.7-16.9); MCH 30.8 pg (25.7-33.7); MCHC 35.1 g/dl (32.0-35.9); MEAN CELL VOLUME 87.9 fl (80-96); MEAN PLT VOLUME 8.4 fl (7.5-11.1); PLATELET COUNT 210 10^3/uL (134-434); RBC 4.99 M/mm3 (4.00-5.60); RDW 17.3 % (11.9-15.9)
[2021-04-12 14:09] LABS: CALCIUM 9.2 mg/dL (8.5-10.1)
[2021-04-12 14:10] LABS: ALBUMIN 4.2 g/dl (3.4-5.0); BLOOD UREA NITROGEN 9.2 mg/dL (7-18)
[2021-04-12 14:14] LABS: TOT PROT 8.8 g/dl (6.4-8.2)
[2021-04-12] MEDS: ARTIFICIAL TEARS (POLYVINYL ALCOHOL) OPTH DROPS OU SCH ×2 (15:47→22:13)
[2021-04-12] MEDS: MELATONIN 5 MG TABLETS PO SCH (22:11)
[2021-04-12] MEDS: QUEtiapine FUMARATE 100 MG TABLET (FP) PO SCH (22:11)
[2021-04-12] MEDS: THIAMINE HCL 100 MG TABLET (FP) PO SCH (22:11)
[2021-04-12] MEDS: traZODone HCL 100 MG TABLET (FP) PO SCH (22:11)
[2021-04-13] MEDS: BACITRACIN 15 GM TUBE TOPICAL OINTMENT TP SCH ×3 (06:31→22:25)
[2021-04-13] MEDS: BENZOCAINE 28 GM HEMORRHOIDAL OINTMENT RC SCH ×4 (06:32→22:26)
[2021-04-13] MEDS: ARTIFICIAL TEARS (POLYVINYL ALCOHOL) OPTH DROPS OU SCH ×3 (06:32→22:26)
[2021-04-13] MEDS: diazePAM 5 MG TABLET PO SCH ×3 (06:33→22:24)
[2021-04-13] MEDS: hydrOXYzine PAMOATE 25 MG CAPSULE (FP) PO SCH ×5 (06:33→22:27)
[2021-04-13] MEDS ORDERED: BACITRACIN 0.9 GM PACKET ONE (09:14)
[2021-04-13] MEDS: PRENATAL VITAMINS W/ FOLIC ACID TABLET (FP) PO SCH (10:08)
[2021-04-13] MEDS: HYDROCHLOROTHIAZIDE 25 MG TABLET (FP) PO SCH (10:08)
[2021-04-13] MEDS: QUEtiapine FUMARATE 100 MG TABLET (FP) PO SCH ×2 (10:08→22:28)
[2021-04-13] MEDS: busPIRone HCL 10 MG TABLET (FP) PO SCH ×2 (10:08→22:25)
[2021-04-13] MEDS: NICOTINE 14 MG/24 HOURS TOPICAL PATCH TD SCH (10:09)
[2021-04-13] MEDS: diazePAM 5 MG TABLET PO PRN ×2 (10:11→17:41)
[2021-04-13] MEDS: POTASSIUM CHLORIDE ORAL LIQUID 20 MEQ/15 ML PO SCH ×2 (11:34→22:26)
[2021-04-13] MEDS: THIAMINE HCL 100 MG TABLET (FP) PO SCH (22:24)
[2021-04-13] MEDS: traZODone HCL 100 MG TABLET (FP) PO SCH (22:25)
[2021-04-13] MEDS: MELATONIN 5 MG TABLETS PO SCH (22:26)
[2021-04-14] MEDS: diazePAM 5 MG TABLET PO SCH ×2 (06:00→17:38)
[2021-04-14] MEDS: hydrOXYzine PAMOATE 25 MG CAPSULE (FP) PO SCH ×5 (06:00→22:08)
[2021-04-14] MEDS: BENZOCAINE 28 GM HEMORRHOIDAL OINTMENT RC SCH ×4 (06:01→23:18)
[2021-04-14] MEDS: ARTIFICIAL TEARS (POLYVINYL ALCOHOL) OPTH DROPS OU SCH ×3 (06:01→22:12)
[2021-04-14] MEDS ORDERED: QUEtiapine FUMARATE 50 MG TABLET ONE (09:19)
[2021-04-14] MEDS: busPIRone HCL 10 MG TABLET (FP) PO SCH ×2 (10:24→22:08)
[2021-04-14] MEDS: HYDROCHLOROTHIAZIDE 25 MG TABLET (FP) PO SCH (10:24)
[2021-04-14] MEDS: QUEtiapine FUMARATE 100 MG TABLET (FP) PO SCH ×2 (10:24→22:10)
[2021-04-14] MEDS: NICOTINE 14 MG/24 HOURS TOPICAL PATCH TD SCH (10:25)
[2021-04-14] MEDS: PRENATAL VITAMINS W/ FOLIC ACID TABLET (FP) PO SCH (10:25)
[2021-04-14] MEDS: POTASSIUM CHLORIDE ORAL LIQUID 20 MEQ/15 ML PO SCH ×2 (10:25→22:08)
[2021-04-14] MEDS: diazePAM 5 MG TABLET PO PRN ×2 (10:29→15:15)
[2021-04-14] MEDS: BACITRACIN 15 GM TUBE TOPICAL OINTMENT TP SCH (14:12)
[2021-04-14] MEDS: traZODone HCL 100 MG TABLET (FP) PO SCH (22:08)
[2021-04-14] MEDS: THIAMINE HCL 100 MG TABLET (FP) PO SCH (22:08)
[2021-04-14] MEDS: MELATONIN 5 MG TABLETS PO SCH (22:12)
[2021-04-14] MEDS: BACITRACIN 0.9 GM PACKET TP SCH (22:12)
[2021-04-15] MEDS ORDERED: diazePAM 5 MG TABLET PO ONE (06:00)
[2021-04-15] MEDS: hydrOXYzine PAMOATE 25 MG CAPSULE (FP) PO SCH ×2 (06:06→10:10)
[2021-04-15] MEDS: ARTIFICIAL TEARS (POLYVINYL ALCOHOL) OPTH DROPS OU SCH (06:07)
[2021-04-15] MEDS: BENZOCAINE 28 GM HEMORRHOIDAL OINTMENT RC SCH ×2 (06:07→11:16)
[2021-04-15 09:08] VITALS: BP 121/70; PULSE 78; TEMP 97.1
[2021-04-15] MEDS: PRENATAL VITAMINS W/ FOLIC ACID TABLET (FP) PO SCH (10:09)
[2021-04-15] MEDS: busPIRone HCL 10 MG TABLET (FP) PO SCH (10:09)
[2021-04-15] MEDS: METHOCARBAMOL 500 MG TABLET PO PRN (10:09)
[2021-04-15] MEDS: HYDROCHLOROTHIAZIDE 25 MG TABLET (FP) PO SCH (10:10)
[2021-04-15] MEDS: QUEtiapine FUMARATE 100 MG TABLET (FP) PO SCH (10:10)
[2021-04-15] MEDS: NICOTINE 14 MG/24 HOURS TOPICAL PATCH TD SCH (10:10)
[2021-04-15] MEDS: POTASSIUM CHLORIDE ORAL LIQUID 20 MEQ/15 ML PO SCH (10:10)
[2021-04-15] MEDS: BACITRACIN 0.9 GM PACKET TP SCH (10:11)
== END 2021-04-15 12:38 | disposition other institution (70) | DRG 774 ==
LOC: YASAS 15:53 → Y6N 04-12 08:38
PROVIDERS: ADMIT Allergy & Immunology; ATTEND Allergy & Immunology
PROC: HZ2ZZZZ Detoxification Services for Substance Abuse Treatment (ICD-10-PCS; principal; 2021-04-12)
DX: F10.230 Alcohol dependence with withdrawal, uncomplicated (principal); F13.230 Sedative, hypnotic or anxiolytic dependence with withdrawal, uncomplicated; F14.20 Cocaine dependence, uncomplicated; F12.20 Cannabis dependence, uncomplicated; F17.210 Nicotine dependence, cigarettes, uncomplicated; F19.280 Other psychoactive substance dependence with psychoactive substance-induced anxiety disorder; F31.9 Bipolar disorder, unspecified; F41.9 Anxiety disorder, unspecified; E87.6 Hypokalemia; J45.20 Mild intermittent asthma, uncomplicated; K21.9 Gastro-esophageal reflux disease without esophagitis; H04.123 Dry eye syndrome of bilateral lacrimal glands; R74.01 Elevation of levels of liver transaminase levels; E66.9 Obesity, unspecified; Z68.39 Body mass index [BMI] 39.0-39.9, adult
CPT/HCPCS: 36415; 80053; 85027; 86780; C9803; Q0162; U0003; U0005

== ENCOUNTER 2021-04-15 12:25 | Inpatient (IN) | payer OTHER ==
[2021-04-15] MEDS ORDERED: IBUPROFEN 400 MG TABLET (FP) PO PRN (12:58)
[2021-04-15] MEDS ORDERED: NICOTINE POLACRILEX 2 MG GUM BC PRN (12:58)
[2021-04-15] MEDS ORDERED: LOPERAMIDE HCL 2 MG CAPSULE PO PRN (12:58)
[2021-04-15] MEDS ORDERED: ACETAMINOPHEN 325 MG TABLET (FP) PO PRN (12:58)
[2021-04-15] MEDS ORDERED: P-EPHED 60MG/TRIPROLIDI 2.5MG TABLET PO PRN (12:58)
[2021-04-15] MEDS ORDERED: MAGNESIUM CITRATE 300 ML BOTTLE PO PRN (12:58)
[2021-04-15] MEDS ORDERED: MAGNESIUM HYDROX 2400MG/30ML ORAL SUSPENSION 30 ML CUP PO PRN (12:58)
[2021-04-15] MEDS ORDERED: guaiFENesin 200 MG/10 ML 10 ML UNIT-DOSE CUPS PO PRN (12:58)
[2021-04-15] MEDS ORDERED: ALBUTEROL SO4 HFA INHALER IH PRN (12:59)
[2021-04-15] MEDS ORDERED: BENZOCAINE 28 GM HEMORRHOIDAL OINTMENT PR PRN (13:05)
[2021-04-15] MEDS ORDERED: PT OWN MED DRAWER 7, Y5N ONE (14:25)
[2021-04-15] MEDS: ARTIFICIAL TEARS (POLYVINYL ALCOHOL) OPTH DROPS OU SCH ×2 (14:31→21:06)
[2021-04-15] MEDS: hydrOXYzine PAMOATE 25 MG CAPSULE (FP) PO SCH ×3 (14:31→21:05)
[2021-04-15] MEDS ORDERED: QUEtiapine FUMARATE 100 MG TABLET (FP) PO SCH ×2 (17:00→22:00)
[2021-04-15] MEDS: busPIRone HCL 10 MG TABLET (FP) PO SCH (21:04)
[2021-04-15] MEDS: QUEtiapine FUMARATE 100 MG TABLET (FP) PO SCH (21:04)
[2021-04-15] MEDS: MELATONIN 5 MG TABLETS PO SCH (21:04)
[2021-04-15] MEDS: THIAMINE HCL 100 MG TABLET (FP) PO SCH (21:05)
[2021-04-15] MEDS: BACITRACIN 15 GM TUBE TOPICAL OINTMENT TP SCH (21:06)
[2021-04-16] MEDS ORDERED: PT OWN MED DRAWER 7, Y5N ONE ×2 (03:57→09:39)
[2021-04-16] MEDS: hydrOXYzine PAMOATE 25 MG CAPSULE (FP) PO SCH (06:41)
[2021-04-16] MEDS: ARTIFICIAL TEARS (POLYVINYL ALCOHOL) OPTH DROPS OU SCH ×3 (06:42→21:41)
[2021-04-16] MEDS ORDERED: HYDROCHLOROTHIAZIDE 50 MG TABLET PO SCH (10:00)
[2021-04-16] MEDS: NICOTINE 14 MG/24 HOURS TOPICAL PATCH TD SCH (10:08)
[2021-04-16] MEDS: BACITRACIN 15 GM TUBE TOPICAL OINTMENT TP SCH (10:08)
[2021-04-16] MEDS: busPIRone HCL 10 MG TABLET (FP) PO SCH ×2 (10:09→21:39)
[2021-04-16] MEDS: PRENATAL VITAMINS W/ FOLIC ACID TABLET (FP) PO SCH (10:09)
[2021-04-16] MEDS: QUEtiapine FUMARATE 100 MG TABLET (FP) PO SCH (10:10)
[2021-04-16] MEDS: PANTOPRAZOLE 40 MG TABLET PO SCH (11:35)
[2021-04-16] MEDS: NICOTINE 10 MG CARTRIDGE (INHALER) IH PRN (15:06)
[2021-04-16] MEDS: traZODone HCL 100 MG TABLET (FP) PO SCH (21:38)
[2021-04-16] MEDS: MELATONIN 5 MG TABLETS PO SCH (21:39)
[2021-04-16] MEDS: THIAMINE HCL 100 MG TABLET (FP) PO SCH (21:39)
[2021-04-16] MEDS: QUEtiapine FUMARATE 200 MG TABLET PO SCH (21:39)
[2021-04-17] MEDS: BACITRACIN 15 GM TUBE TOPICAL OINTMENT TP SCH (00:31)
[2021-04-17] MEDS: ARTIFICIAL TEARS (POLYVINYL ALCOHOL) OPTH DROPS OU SCH ×3 (06:21→21:18)
[2021-04-17] MEDS ORDERED: PT OWN MED DRAWER 7, Y5N ONE ×2 (08:42→19:24)
[2021-04-17] MEDS: PANTOPRAZOLE 40 MG TABLET PO SCH (09:57)
[2021-04-17] MEDS: PRENATAL VITAMINS W/ FOLIC ACID TABLET (FP) PO SCH (09:57)
[2021-04-17] MEDS: NICOTINE 14 MG/24 HOURS TOPICAL PATCH TD SCH (09:58)
[2021-04-17] MEDS: busPIRone HCL 10 MG TABLET (FP) PO SCH ×2 (09:58→21:15)
[2021-04-17] MEDS: QUEtiapine FUMARATE 200 MG TABLET PO SCH ×2 (09:58→21:15)
[2021-04-17] MEDS: BACITRACIN 0.9 GM PACKET TP SCH ×2 (11:00→21:15)
[2021-04-17 12:41] LABS: HIV INTERPRETATION NEGATIVE (NEGATIVE)
[2021-04-17] MEDS: THIAMINE HCL 100 MG TABLET (FP) PO SCH (21:15)
[2021-04-17] MEDS: traZODone HCL 100 MG TABLET (FP) PO SCH (21:15)
[2021-04-17] MEDS: MELATONIN 5 MG TABLETS PO SCH (21:15)
[2021-04-18] MEDS: ARTIFICIAL TEARS (POLYVINYL ALCOHOL) OPTH DROPS OU SCH ×2 (06:43→13:24)
[2021-04-18] MEDS ORDERED: PT OWN MED DRAWER 7, Y5N ONE ×4 (08:40→21:58)
[2021-04-18] MEDS: PANTOPRAZOLE 40 MG TABLET PO SCH (09:58)
[2021-04-18] MEDS: busPIRone HCL 10 MG TABLET (FP) PO SCH ×2 (09:58→21:28)
[2021-04-18] MEDS: QUEtiapine FUMARATE 200 MG TABLET PO SCH ×2 (09:59→21:27)
[2021-04-18] MEDS: BACITRACIN 0.9 GM PACKET TP SCH ×2 (09:59→21:29)
[2021-04-18] MEDS: PRENATAL VITAMINS W/ FOLIC ACID TABLET (FP) PO SCH (09:59)
[2021-04-18] MEDS: NICOTINE 14 MG/24 HOURS TOPICAL PATCH TD SCH (09:59)
[2021-04-18] MEDS: THIAMINE HCL 100 MG TABLET (FP) PO SCH (21:27)
[2021-04-18] MEDS: traZODone HCL 100 MG TABLET (FP) PO SCH (21:27)
[2021-04-18] MEDS: MELATONIN 5 MG TABLETS PO SCH (21:28)
[2021-04-19] MEDS: PANTOPRAZOLE 40 MG TABLET PO SCH (09:05)
[2021-04-19] MEDS: BACITRACIN 0.9 GM PACKET TP SCH ×2 (09:05→21:25)
[2021-04-19] MEDS: busPIRone HCL 10 MG TABLET (FP) PO SCH ×2 (09:06→21:24)
[2021-04-19] MEDS: PRENATAL VITAMINS W/ FOLIC ACID TABLET (FP) PO SCH (09:06)
[2021-04-19] MEDS: QUEtiapine FUMARATE 200 MG TABLET PO SCH ×2 (09:07→21:24)
[2021-04-19] MEDS: NICOTINE 14 MG/24 HOURS TOPICAL PATCH TD SCH (09:09)
[2021-04-19] MEDS: traZODone HCL 100 MG TABLET (FP) PO SCH (21:24)
[2021-04-19] MEDS: MELATONIN 5 MG TABLETS PO SCH (21:24)
[2021-04-19] MEDS: THIAMINE HCL 100 MG TABLET (FP) PO SCH (21:25)
[2021-04-20] MEDS: QUEtiapine FUMARATE 200 MG TABLET PO SCH ×2 (10:19→21:17)
[2021-04-20] MEDS: NICOTINE 14 MG/24 HOURS TOPICAL PATCH TD SCH (10:20)
[2021-04-20] MEDS: PRENATAL VITAMINS W/ FOLIC ACID TABLET (FP) PO SCH (10:20)
[2021-04-20] MEDS: busPIRone HCL 10 MG TABLET (FP) PO SCH ×2 (10:20→21:18)
[2021-04-20] MEDS: BACITRACIN 0.9 GM PACKET TP SCH ×2 (10:20→21:18)
[2021-04-20] MEDS: PANTOPRAZOLE 40 MG TABLET PO SCH (10:21)
[2021-04-20] MEDS: hydrOXYzine PAMOATE 25 MG CAPSULE (FP) PO PRN ×2 (16:51→21:18)
[2021-04-20] MEDS: ARTIFICIAL TEARS (POLYVINYL ALCOHOL) OPTH DROPS OU PRN (16:52)
[2021-04-20] MEDS ORDERED: PT OWN MED DRAWER 7, Y5N ONE (16:54)
[2021-04-20] MEDS: MELATONIN 5 MG TABLETS PO SCH (21:17)
[2021-04-20] MEDS: THIAMINE HCL 100 MG TABLET (FP) PO SCH (21:17)
[2021-04-20] MEDS: traZODone HCL 100 MG TABLET (FP) PO SCH (21:18)
[2021-04-21] MEDS: hydrOXYzine PAMOATE 25 MG CAPSULE (FP) PO PRN (10:12)
[2021-04-21] MEDS: PANTOPRAZOLE 40 MG TABLET PO SCH (10:12)
[2021-04-21] MEDS: NICOTINE 14 MG/24 HOURS TOPICAL PATCH TD SCH (10:12)
[2021-04-21] MEDS: busPIRone HCL 10 MG TABLET (FP) PO SCH ×2 (10:12→21:29)
[2021-04-21] MEDS: BACITRACIN 0.9 GM PACKET TP SCH ×2 (10:12→21:28)
[2021-04-21] MEDS: QUEtiapine FUMARATE 200 MG TABLET PO SCH ×2 (10:12→21:29)
[2021-04-21] MEDS: PRENATAL VITAMINS W/ FOLIC ACID TABLET (FP) PO SCH (10:12)
[2021-04-21] MEDS: NICOTINE 10 MG CARTRIDGE (INHALER) IH PRN (10:14)
[2021-04-21] MEDS: ARTIFICIAL TEARS (POLYVINYL ALCOHOL) OPTH DROPS OU PRN (10:14)
[2021-04-21] MEDS: traZODone HCL 100 MG TABLET (FP) PO SCH (21:28)
[2021-04-21] MEDS: THIAMINE HCL 100 MG TABLET (FP) PO SCH (21:29)
[2021-04-21] MEDS: MELATONIN 5 MG TABLETS PO SCH (21:29)
[2021-04-22] MEDS: MAG HYDROX/AL HYDROX/SIMETH 30 ML UNIT-DOSE CUP PO PRN ×2 (09:02→14:25)
[2021-04-22] MEDS: ARTIFICIAL TEARS (POLYVINYL ALCOHOL) OPTH DROPS OU PRN (10:15)
[2021-04-22] MEDS: PRENATAL VITAMINS W/ FOLIC ACID TABLET (FP) PO SCH (10:15)
[2021-04-22] MEDS: busPIRone HCL 10 MG TABLET (FP) PO SCH ×2 (10:15→21:14)
[2021-04-22] MEDS: NICOTINE 14 MG/24 HOURS TOPICAL PATCH TD SCH (10:16)
[2021-04-22] MEDS: hydrOXYzine PAMOATE 25 MG CAPSULE (FP) PO PRN (10:16)
[2021-04-22] MEDS: PANTOPRAZOLE 40 MG TABLET PO SCH (10:16)
[2021-04-22] MEDS: QUEtiapine FUMARATE 200 MG TABLET PO SCH ×2 (10:16→21:14)
[2021-04-22] MEDS: BACITRACIN 0.9 GM PACKET TP SCH ×2 (10:16→21:15)
[2021-04-22] MEDS: traZODone HCL 100 MG TABLET (FP) PO SCH (21:14)
[2021-04-22] MEDS: THIAMINE HCL 100 MG TABLET (FP) PO SCH (21:14)
[2021-04-22] MEDS: MELATONIN 5 MG TABLETS PO SCH (21:15)
[2021-04-23] MEDS: PRENATAL VITAMINS W/ FOLIC ACID TABLET (FP) PO SCH (10:14)
[2021-04-23] MEDS: QUEtiapine FUMARATE 200 MG TABLET PO SCH ×2 (10:15→21:14)
[2021-04-23] MEDS: NICOTINE 14 MG/24 HOURS TOPICAL PATCH TD SCH (10:15)
[2021-04-23] MEDS: hydrOXYzine PAMOATE 25 MG CAPSULE (FP) PO PRN ×2 (10:15→19:56)
[2021-04-23] MEDS: busPIRone HCL 10 MG TABLET (FP) PO SCH ×2 (10:15→21:14)
[2021-04-23] MEDS: PANTOPRAZOLE 40 MG TABLET PO SCH (10:15)
[2021-04-23] MEDS: BACITRACIN 0.9 GM PACKET TP SCH ×2 (10:15→21:15)
[2021-04-23] MEDS: ARTIFICIAL TEARS (POLYVINYL ALCOHOL) OPTH DROPS OU PRN (10:16)
[2021-04-23] MEDS: MAG HYDROX/AL HYDROX/SIMETH 30 ML UNIT-DOSE CUP PO PRN (18:42)
[2021-04-23] MEDS: THIAMINE HCL 100 MG TABLET (FP) PO SCH (21:14)
[2021-04-23] MEDS: traZODone HCL 100 MG TABLET (FP) PO SCH (21:14)
[2021-04-23] MEDS: MELATONIN 5 MG TABLETS PO SCH (21:14)
[2021-04-24] MEDS: PANTOPRAZOLE 40 MG TABLET PO SCH (10:22)
[2021-04-24] MEDS: busPIRone HCL 10 MG TABLET (FP) PO SCH ×2 (10:22→21:17)
[2021-04-24] MEDS: BACITRACIN 0.9 GM PACKET TP SCH ×2 (10:22→21:18)
[2021-04-24] MEDS: QUEtiapine FUMARATE 200 MG TABLET PO SCH ×2 (10:22→21:17)
[2021-04-24] MEDS: PRENATAL VITAMINS W/ FOLIC ACID TABLET (FP) PO SCH (10:22)
[2021-04-24] MEDS: ARTIFICIAL TEARS (POLYVINYL ALCOHOL) OPTH DROPS OU PRN (10:23)
[2021-04-24] MEDS: hydrOXYzine PAMOATE 25 MG CAPSULE (FP) PO PRN ×3 (10:23→21:17)
[2021-04-24] MEDS: NICOTINE 14 MG/24 HOURS TOPICAL PATCH TD SCH (10:55)
[2021-04-24] MEDS: traZODone HCL 100 MG TABLET (FP) PO SCH (21:17)
[2021-04-24] MEDS: MELATONIN 5 MG TABLETS PO SCH (21:17)
[2021-04-24] MEDS: THIAMINE HCL 100 MG TABLET (FP) PO SCH (21:17)
[2021-04-25] MEDS: BACITRACIN 0.9 GM PACKET TP SCH ×2 (10:06→21:23)
[2021-04-25] MEDS: QUEtiapine FUMARATE 200 MG TABLET PO SCH ×2 (10:06→21:22)
[2021-04-25] MEDS: hydrOXYzine PAMOATE 25 MG CAPSULE (FP) PO PRN ×2 (10:06→14:15)
[2021-04-25] MEDS: PANTOPRAZOLE 40 MG TABLET PO SCH (10:06)
[2021-04-25] MEDS: NICOTINE 14 MG/24 HOURS TOPICAL PATCH TD SCH (10:06)
[2021-04-25] MEDS: PRENATAL VITAMINS W/ FOLIC ACID TABLET (FP) PO SCH (10:06)
[2021-04-25] MEDS: busPIRone HCL 10 MG TABLET (FP) PO SCH ×2 (10:06→21:21)
[2021-04-25] MEDS ORDERED: PT OWN MED DRAWER 7, Y5N ONE ×2 (14:16→21:24)
[2021-04-25] MEDS: ARTIFICIAL TEARS (POLYVINYL ALCOHOL) OPTH DROPS OU PRN ×2 (14:16→21:23)
[2021-04-25] MEDS: MELATONIN 5 MG TABLETS PO SCH (21:21)
[2021-04-25] MEDS: THIAMINE HCL 100 MG TABLET (FP) PO SCH (21:21)
[2021-04-25] MEDS: traZODone HCL 100 MG TABLET (FP) PO SCH (21:22)
[2021-04-26] MEDS: PANTOPRAZOLE 40 MG TABLET PO SCH (09:58)
[2021-04-26] MEDS: PRENATAL VITAMINS W/ FOLIC ACID TABLET (FP) PO SCH (09:58)
[2021-04-26] MEDS: BACITRACIN 0.9 GM PACKET TP SCH ×2 (09:59→21:27)
[2021-04-26] MEDS: NICOTINE 14 MG/24 HOURS TOPICAL PATCH TD SCH (09:59)
[2021-04-26] MEDS: QUEtiapine FUMARATE 200 MG TABLET PO SCH ×2 (09:59→21:27)
[2021-04-26] MEDS: hydrOXYzine PAMOATE 25 MG CAPSULE (FP) PO PRN ×3 (09:59→21:27)
[2021-04-26] MEDS: busPIRone HCL 10 MG TABLET (FP) PO SCH ×2 (09:59→21:26)
[2021-04-26] MEDS ORDERED: SERTRALINE HCL 50 MG TABLET (FP) PO SCH ×2 (10:00→11:30)
[2021-04-26] MEDS: traZODone HCL 100 MG TABLET (FP) PO SCH (21:26)
[2021-04-26] MEDS: THIAMINE HCL 100 MG TABLET (FP) PO SCH (21:26)
[2021-04-26] MEDS: MELATONIN 5 MG TABLETS PO SCH (21:26)
[2021-04-27 06:57] VITALS: BP 117/76; PULSE 80; TEMP 97.4
[2021-04-27] MEDS ORDERED: PT OWN MED DRAWER 7, Y5N ONE (08:46)
== END 2021-04-27 09:05 | disposition home or self-care (01) | DRG 772 ==
LOC: YASAS 12:25 → Y3E 12:26 → Y3W 04-19 15:09
PROVIDERS: ADMIT Allergy & Immunology; ATTEND Allergy & Immunology
PROC: HZ42ZZZ Group Counseling for Substance Abuse Treatment, Cognitive-Behavioral (ICD-10-PCS; principal; 2021-04-15)
DX: F10.20 Alcohol dependence, uncomplicated (principal); F14.20 Cocaine dependence, uncomplicated; F13.20 Sedative, hypnotic or anxiolytic dependence, uncomplicated; F12.20 Cannabis dependence, uncomplicated; F17.210 Nicotine dependence, cigarettes, uncomplicated; F19.282 Other psychoactive substance dependence with psychoactive substance-induced sleep disorder; F19.280 Other psychoactive substance dependence with psychoactive substance-induced anxiety disorder; F19.24 Other psychoactive substance dependence with psychoactive substance-induced mood disorder; F31.9 Bipolar disorder, unspecified; F43.10 Post-traumatic stress disorder, unspecified; J45.909 Unspecified asthma, uncomplicated; K21.9 Gastro-esophageal reflux disease without esophagitis; E66.9 Obesity, unspecified; Z68.39 Body mass index [BMI] 39.0-39.9, adult; Z86.69 Personal history of other diseases of the nervous system and sense organs
CPT/HCPCS: 36415; 84132; 87389

== ENCOUNTER 2021-06-22 02:39 | Inpatient (IN) | payer OTHER ==
[2021-06-22 04:18] VITALS: BMI 41.5
[2021-06-22] MEDS ORDERED: BISMUTH SUBSALICYLATE 524 MG/30 ML PO PRN (04:41)
[2021-06-22] MEDS ORDERED: ACETAMINOPHEN 325 MG TABLET (FP) PO PRN ×2 (04:41)
[2021-06-22] MEDS ORDERED: NICOTINE POLACRILEX 2 MG GUM BUC PRN (04:41)
[2021-06-22] MEDS ORDERED: MENTHOL/PHENOL 1 EACH UD MM PRN (04:41)
[2021-06-22] MEDS ORDERED: MAGNESIUM HYDROX 2400MG/30ML ORAL SUSPENSION 30 ML CUP PO PRN (04:41)
[2021-06-22] MEDS ORDERED: METHOCARBAMOL 500 MG TABLET PO PRN (04:41)
[2021-06-22] MEDS ORDERED: IBUPROFEN 400 MG TABLET (FP) PO PRN (04:41)
[2021-06-22] MEDS ORDERED: ONDANSETRON *ODT* 4 MG TABLET SL PRN (04:41)
[2021-06-22] MEDS ORDERED: MAGNESIUM CITRATE 300 ML BOTTLE PO PRN (04:41)
[2021-06-22] MEDS ORDERED: MAG HYDROX/AL HYDROX/SIMETH 30 ML UNIT-DOSE CUP PO PRN (04:41)
[2021-06-22] MEDS ORDERED: diazePAM 5 MG TABLET PO PRN (04:44)
[2021-06-22] MEDS: diazePAM 5 MG TABLET PO SCH ×2 (05:10→11:03)
[2021-06-22] MEDS ORDERED: diazePAM 5 MG TABLET ONE (09:48)
[2021-06-22] MEDS ORDERED: PRENATAL VITAMINS W/ FOLIC ACID TABLET (FP) PO SCH (10:00)
[2021-06-22] MEDS ORDERED: QUEtiapine FUMARATE 200 MG TABLET PO SCH (10:29)
[2021-06-22 10:39] VITALS: BP 147/89; PULSE 99; TEMP 97.1
[2021-06-22 14:43] LABS: HEMATOCRIT 39.3 % (35.4-49); HEMOGLOBIN 13.2 GM/dL (11.7-16.9); MCH 30.3 pg (25.7-33.7); MCHC 33.6 g/dl (32.0-35.9); MEAN CELL VOLUME 90.1 fl (80-96); MEAN PLT VOLUME 8.4 fl (7.5-11.1); PLATELET COUNT 175 10^3/uL (134-434); RBC 4.36 M/mm3 (4.00-5.60); RDW 17.1 % (11.9-15.9); WHITE BLOOD COUNT 4.5 K/mm3 (4.0-10.0)
[2021-06-22 14:45] LABS: CALCIUM 7.6 mg/dL (8.5-10.1)
[2021-06-22 14:46] LABS: ALBUMIN 3.5 g/dl (3.4-5.0)
[2021-06-22 14:49] LABS: CREATININE 0.8 mg/dL (0.55-1.3)
[2021-06-22 14:50] LABS: BILIRUBIN,TOTAL 0.2 mg/dL (0.2-1)
[2021-06-22 14:51] LABS: TOT PROT 7.3 g/dl (6.4-8.2)
[2021-06-22] MEDS ORDERED: THIAMINE HCL 100 MG TABLET (FP) PO SCH (22:00)
[2021-06-22] MEDS ORDERED: MELATONIN 5 MG TABLETS PO SCH (22:00)
[2021-06-22] MEDS ORDERED: traZODone HCL 100 MG TABLET (FP) PO SCH (22:00)
[2021-06-22] MEDS ORDERED: busPIRone HCL 10 MG TABLET (FP) PO SCH (22:00)
[2021-06-23] MEDS ORDERED: diazePAM 5 MG TABLET PO SCH (06:00)
[2021-06-23] MEDS ORDERED: SERTRALINE HCL 50 MG TABLET (FP) PO SCH (10:00)
[2021-06-24] MEDS ORDERED: diazePAM 5 MG TABLET PO SCH (06:00)
[2021-06-25] MEDS ORDERED: diazePAM 5 MG TABLET PO ONE (06:00)
== END 2021-06-22 12:55 | disposition left against medical advice (07) | DRG 770 ==
LOC: YASAS 02:39 → Y3N 09:31
PROVIDERS: ADMIT Allergy & Immunology; ATTEND Allergy & Immunology
PROC: HZ2ZZZZ Detoxification Services for Substance Abuse Treatment (ICD-10-PCS; principal; 2021-06-22)
DX: F10.230 Alcohol dependence with withdrawal, uncomplicated (principal); F12.20 Cannabis dependence, uncomplicated; F17.210 Nicotine dependence, cigarettes, uncomplicated; F20.9 Schizophrenia, unspecified; F31.9 Bipolar disorder, unspecified; F19.24 Other psychoactive substance dependence with psychoactive substance-induced mood disorder; F43.10 Post-traumatic stress disorder, unspecified; I10 Essential (primary) hypertension; J45.909 Unspecified asthma, uncomplicated; K21.9 Gastro-esophageal reflux disease without esophagitis; E66.01 Morbid (severe) obesity due to excess calories; Z68.41 Body mass index [BMI] 40.0-44.9, adult; Z86.69 Personal history of other diseases of the nervous system and sense organs
CPT/HCPCS: 36415; 80053; 85027; 86780; C9803; U0003; U0005